=== PATIENT | male | born 1960 | race Caucasian/White ===

== ENCOUNTER 2024-07-01 12:36 | Inpatient (IN) | payer BC, SELFPAY ==
[2024-07-01] VITALS (93 sets, daily range): BP systolic 93–149; BP diastolic 72–108; PULSE 75–123; RESP 14–29; TEMP 36.8; O2SAT 89–99; BMI 27.1
[2024-07-01] MEDS: sodium chloride 0.9% 1,000 ML 999 ML IV (12:56)
--- NOTE | 2024-07-01 12:57 | ED.C_ITS ---
HPI - Psych General: Chief Complaint: Psychiatric Symptoms Stated Complaint: SI, hallucinations, jaundice, ETOH Time Seen by Provider: 07/01/24 12:38 Source: patient Mode of arrival: EMS Limitations: altered mental status History of Present Illness: 64-year-old male presents to the ER via EMS for concerns drinking 3 bottles of hand prototype engineer at home. Patient states he did not drink hand prototype engineer and he is coming in due to increased anxiety and wanting to get back on his antidepressants. Patient denies suicidal ideation. Patient states his last alcohol intake was 3 days ago of 1 L of vodka. Patient states his last meal was 2 to 3 days ago. Patient was unable to say what state he is in and what day of the week it is. Patient denies chest pain, abdominal pain, shortness of breath, headache, vision changes. MD complaint: feels depressed Onset (ago): day(s) Relieving factors: none Exacerbating factors: none Context: recent alcohol abuse and not taking psychiatric medications Associated psychiatric symptoms: depression Associated symptoms: Reports no associated symptoms and depression Related Data Allergies Allergy/AdvReac Type Severity Reaction Status Date / Time No Known Allergies Allergy Verified 07/01/24 12:46 Review of Systems Const: Denies: fever(s), chills or body aches Eyes: Denies: change in vision Card: Denies: chest pain or palpitations Resp: Denies: dyspnea GI: Denies: abdominal pain Neuro: Denies: headache(s) Psych: Reports: anxiety, depression and change in appetite Physical Exam Const: EXAM LIMITATIONS: altered mental status GENERAL APPEARANCE: cooperative ORIENTATION/CONSCIOUSNESS: Yes awake, Yes oriented to person, Yes oriented to place and Yes confused; not oriented to time Resp: COMMON NORMALS: clear to auscultation bilaterally EFFORT & INSPECTION: Yes able to speak in complete sentences AUSCULTATION: clear to auscultation bilaterally Cardio: COMMON NORMALS: regular rate and regular rhythm RATE: regular rate RHYTHM: regular rhythm Neuro: SENSORIUM/ORIENTATION: Yes oriented to person, Yes oriented to place and No oriented to time Psych: COMMON NORMALS: cooperative, denies hallucinations and denies suicidal ideation APPEARANCE: Yes disheveled SPEECH: Yes slow and Yes soft Course Vital Signs: Vital signs: Vital Signs Temperature 98.3 F 07/01/24 12:45 Pulse Rate 108 H 07/01/24 12:45 Respiratory Rate 17 07/01/24 12:45 Blood Pressure 116/81 07/01/24 12:45 Pulse Oximetry 93 07/01/24 12:45 Oxygen Delivery Me thod Room Air 07/01/24 12:45 Discharge Plan Discharge Condition: Stable Print Language: Croatian Coding Level of Care Code ED Business Management Intern for Atif Mendes
--- NOTE | 2024-07-01 13:03 | PC.NURSE ---
POISON CONTROL CONTACTED REGARDING PATIENT INGESTION OF HAND PROFESSOR OF LEGAL STUDIES. POISON CONTROL ADVISED SYMPTOMATIC SUPPORTIVE CARE, OXYGEN SUPPORT AND MONITORING, URINE DRUG SCREEN, CBC, BMP, AND EKG. MONITOR FOR HYPOGLYCEMIA, HYPERTENSIO, AND BRADYCARDIA. PEAK TIME IS 30-60 MINUTES. ALSO MONITOR FOR METABOLIC ACIDOSIS. PROVIDER NOTIFIED.
--- NOTE | 2024-07-01 13:08 | ECG_ITS ---
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 Measurements Intervals [place] Rate: 101 P: 50 MT: 156 QRS: -55 QRSD: 109 T: 26 QT: 340 QTc: 443 Interpretive Statements SINUS TACHYCARDIA LOW QRS VOLTAGE IN PRECORDIAL LEADS [QRS DEFLECTION < 1.0 mV IN CHEST LEADS] PATTERN CONSISTENT WITH PULMONARY DISEASE INCOMPLETE RIGHT BUNDLE BRANCH BLOCK [90+ ms QRS DURATION, TERMINAL R IN V1/V2, 40+ ms S IN I/aVL/V4/V5/V6] LEFT ANTERIOR FASCICULAR BLOCK [QRS AXIS <= -45, QR IN I, RS IN II] ST DEVIATION AND MODERATE T-WAVE ABNORMALITY, CONSIDER ANTERIOR ISCHEMIA [-0.1+ mV T-WAVE IN V3/V4] No previous ECG available for comparison Electronically Signed On 07-06-2024 19:49:47 BUZZLE BUFFER by Eddie Herndon M.D. [email or web address] [id number]
--- NOTE | 2024-07-01 13:09 | PC.PHAR ---
Pt has not filled any medications since December 2023 at [facility].
--- NOTE | 2024-07-01 13:13 | CT_ITS ---
WS: [id number] CT ABDOMEN AND PELVIS WITH CONTRAST HISTORY: AMS, abdominal ecchymosis, jaundice TECHNIQUE: Imaging performed of the abdomen and pelvis with IV contrast. Single phase imaging of the abdomen. Coronal and sagittal reformats are submitted. All CT scans at [facility] use at least one of these dose optimization techniques: automated exposure control; mA and/or kV adjustment per patient size (includes targeted exams where dose is matched to clinical indication); or iterative reconstruction. IV CONTRAST: Omnipaque 350; 100 mL IV. Oral contrast: No DLP: 987.43 mGy.cm COMPARISON: None available. Lower thorax: Lung bases are clear. Heart is normal size. No hiatal hernia. Liver/biliary system: Markedly enlarged liver. Liver measures 22.2 cm in length with severe decreased attenuation throughout the entire liver. No intrahepatic duct dilatation. No mass. Portal vein is normally enhancing. Small caliber common bile duct. Gallbladder: Normal. No gallstones or wall thickening. No pericholecystic fluid. Pancreas: Normal size pancreas and pancreatic duct. No adjacent inflammation. Spleen: Normal size spleen. No mass or infarct. Scattered granulomata. Adrenal glands: Normal RIGHT adrenal gland. 1.6 cm LEFT adrenal nodule. Right kidney: Normal. Left kidney: Normal size kidney. Lobulated low-attenuation mass 2.4 x 2.1 cm from the anterior lower pole. Hounsfield units suggest this is a cyst. No solid mass or obstruction. Aorta: Mild atherosclerosis with no aneurysm. Lymphadenopathy: None. Free fluid: Tiny amount of free fluid in the pelvis. GI tract: No obstruction. Normal appendix. Abdominal wall: Unremarkable abdominal wall. No hernia. Pelvis: Nondistended urinary bladder. No adenopathy. Bones: Schmorl node defect at T11 and T12. CT/CT abdomen pelvis w con* [id number] IMPRESSION: 1. Markedly enlarged liver with severe decreased attenuation due to hepatic st eatosis. 2. Normal common bile duct. No intrahepatic or extrahepatic duct dilatation. 3. No evidence for acute pancreatitis. 4. LEFT renal cyst. 5. LEFT adrenal nodule 1.6 cm. Differential includes metastatic disease and be nign adenoma. Dedicated adrenal mass CT protocol or MRI adrenal protocol can be obtained.
--- NOTE | 2024-07-01 13:13 | CT_ITS ---
WS: [id number] CT HEAD NONCONTRAST HISTORY: AMS TECHNIQUE: Contiguous axial imaging performed through the brain. Bone and soft tissue windows. Sagittal and coronal reformats reviewed. All CT scans at [facility] use at least one of these dose optimization techniques: automated exposure control; mA and/or kV adjustment per patient size (includes targeted exams where dose is matched to clinical indication); or iterative reconstruction. DLP: 1107.68 mGy.cm COMPARISON: None available. No acute intracranial hemorrhage, midline shift or mass effect. Mild cerebral atrophy and small vessel disease. No prior large territory infarct. Ventricles: Normal size with no hydrocephalus. No inferior displacement of the cerebellar tonsils. Paranasal sinuses: As visualized are clear. Mastoid air cells: Well pneumatized. Calvarium and scalp: Skull is intact with no soft tissue edema or swelling. CT/CT head wo con* [id number] IMPRESSION: 1. No acute intracranial hemorrhage or edema. 2. Mild cerebral atrophy and small vessel disease.
--- NOTE | 2024-07-01 13:14 | W.ED.AMS ---
HPI - Altered Mental Status General: Chief Complaint: Psychiatric Symptoms Stated Complaint: SI, hallucinations, jaundice, ETOH Time Seen by Provider: 07/01/24 12:38 Source: patient and EMS Mode of arrival: ambulatory Limitations: altered mental status History of Present Illness: Patient is a 64-year-old male who presents to ED today via EMS initially for complaints of suicidal ideations, hallucinations, jaundice, alcohol abuse. Report from patient is unobtainable as he is significantly altered upon arrival. He has significant jaundice and scleral icterus. There is a longstanding history of heavy alcohol abuse. Patient does tell me he is and used to reside with his but she kicked him out and now he resides with his mother. 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 Patient believes he is in [place]. He is a poor historian overall due to his altered mental status. MD complaint: altered mental status and confusion Onset (ago): unknown Context: alcohol abuse Related Data Home Medications ?Medication ?Instructions ?Recorded ?Confirmed No Known Home Medications 07/01/24 07/01/24 Allergies Allergy/AdvReac Type Severity Reaction Status Date / Time No Known Allergies Allergy Verified 07/01/24 12:46 Review of Systems General: Reports: ROS unobtainable due to medical condition and ROS unobtainable due to mental status Physical Exam Const: COMMON NORMALS: alert EXAM LIMITATIONS: altered mental status GENERAL APPEARANCE: cooperative ORIENTATION/CONSCIOUSNESS: Yes awake and Yes oriented to person HENMT: COMMON NORMALS: normocephalic and atraumatic HEAD & SCALP: normal to inspection, normocephalic and atraumatic FACE & SINUS: normal facial exam Eye: SCLERA: scleral abnormal Laterality of scleral abnormality: positive bilateral scleral icterus Neck/C-Spine: COMMON NORMALS: full ROM and no lymphadenopathy GENERAL: Yes normal visual inspection Resp: COMMON NORMALS: normal respiratory effort and clear to auscultation bilaterally AUSCULTATION: clear to auscultation bilaterally Cardio: COMMON NORMALS: regular rhythm RATE: tachycardic RHYTHM: regular rhythm GI: COMMON NORMALS: Soft to palpation and no masses INSPECTION: Yes other (ecchymosis on abdomen-states he fell recently) AUSCULTATION: Yes normoactive bowel sounds PALPATION: Yes Soft to palpation and Yes Hepatomegaly present : COMMON NORMALS: Yes no CVA tenderness BLADDER/KIDNEY EXAM: Yes no CVA tenderness Back/Pelvis: COMMON NORMALS: no CVA tenderness Extremity: COMMON NORMALS: full ROM, capillary refill normal, no clubbing, cyanosis or edema, no calf tenderness and no pedal edema GENERAL: Yes normal exam except as noted Neuro: MELINA COMA SCALE: document GCS findings Melina coma scale eye opening: Spontaneous Lindley coma scale verbal response: Confused Lindley coma scale motor response: Obey commands Melina coma scale total score: 14 COMMON NORMALS: moves all extremities, no focal motor deficits and no sensory deficits noted SENSORIUM/ORIENTATION: Yes alert and Yes oriented to person Skin: NARRATIVE SKIN EXAM: jaundice Course Vital Signs: Vital signs: Vital Signs Temperature 98.3 F 07/01/24 12:45 Pulse Rate 108 H 07/01/24 12:45 Respiratory Rate 17 07/01/24 12:45 Blood Pressure 116/81 07/01/24 12:45 Pulse Oximetry 93 07/01/24 12:45 Oxygen Delivery Me thod Room Air 07/01/24 12:45 MDM - Altered Mental Status Medical Decision Making Patient will be admitted to hospital service for treatment of hepatic encephalopathy. Dr. Taylor and Dr. Paiz aware of patient and agree with decision to admit. Medical Records I reviewed the patient's medical records. Lab Data I reviewed the patient's lab results. 07/01/24 13:36 07/01/24 13:36 Radiology Impressions Abdomen/Pelvis CT 07/01/24 13:13 IMPRESSION: 1. Markedly enlarged liver with severe decreased attenuation due to hepatic steatosis. 2. Normal common bile duct. No intrahepatic or extrahepatic duct dilatation. 3. No evidence for acute pancreatitis. 4. LEFT renal cyst. 5. LEFT adrenal nodule 1.6 cm. Differential includes metastatic disease and benign adenoma. Dedicated adrenal mass CT protocol or MRI adrenal protocol can be obtained. Head CT 07/01/24 13:13 IMPRESSION: 1. No acute intracranial hemorrhage or edema. 2. Mild cerebral atrophy and small vessel disease. Laboratory Results WBC 10.63 10^3/uL (3.29-11.43) 07/01/24 13:36 RBC 3.84 10^6/uL (3.85-5.65) L 07/01/24 13:36 Hgb 13.00 g/dL (11.27-16.99) 07/01/24 13:36 Hct 39.7 % (37-53) 07/01/24 13:36 MCV 103.4 fl (82-101) H 07/01/24 13:36 MCH 33.9 pg (27-33) H 07/01/24 13:36 MCHC 32.7 g/dL (30-55) 07/01/24 13:36 RDW 16.1 % (12.1-15.1) H 07/01/24 13:36 Plt Count 207 10^3/cmm (157-399) 07/01/24 13:36 MPV 11.4 fL (7.4-10.4) H 07/01/24 13:36 Neut % (Auto) 73.0 % 07/01/24 13:36 Lymph % (Auto) 14.2 % 07/01/24 13:36 [place] % (Auto) 9.1 % 07/01/24 13:36 Eos % (Auto) 0.6 % 07/01/24 13:36 Baso % (Auto) 0.7 % 07/01/24 13:36 Neut # (Auto) 7.76 10^3/uL (1.8-7.7) H 07/01/24 13:36 Lymph # (Auto) 1.5 10^3/uL (0.8-4.8) 07/01/24 13:36 [place] # (Auto) 1.0 10^3/uL (0.2-0.9) H 07/01/24 13:36 Eos # (Auto) 0.1 10^3/uL (0.0-0.8) 07/01/24 13:36 Baso # (Auto) 0.1 10^3/uL (0.0-0.1) 07/01/24 13:36 Nucleated RBC % (auto) 1.3 % 07/01/24 13:36 Nucleated RBCs # 0.1 /100WBC 07/01/24 13:36 PT 15.50 SECONDS (12.1-14.9) H 07/01/24 13:36 INR 1.15 (0.8-1.2) 07/01/24 13:36 APTT 33.4 SECONDS (23.9-36.7) 07/01/24 13:36 Sodium 133 mmol/L (136-145) L 07/01/24 13:36 Potassium 3.0 mmol/L (3.5-5.1) L 07/01/24 13:36 Chloride 92 mmol/L (98-107) L 07/01/24 13:36 Carbon Dioxide 26 mmol/L (22-29) 07/01/24 13:36 Anion Gap 18.0 (5-19) 07/01/24 13:36 BUN 14 mg/dL (8-23) 07/01/24 13:36 Creatinine 0.7 mg/dL (0.7-1.2) 07/01/24 13:36 GFR Calculation 114.3 mL/min (90-130) 07/01/24 13:36 Glucose 110 mg/dL (65-115) 07/01/24 13:36 Calculated Osmolality 277 mOsm/kg (285-295) L 07/01/24 13:36 Lactic Acid 2.6 mmol/L (0.5-2.2) H 07/01/24 13:36 Calcium 8.7 mg/dL (8.5-10.5) 07/01/24 13:36 Total Bilirubin 10.7 mg/dL (0.15-1.2) H* 07/01/24 13:36 AST 341 U/L (0-40) H 07/01/24 13:36 ALT 119 U/L (0-41) H 07/01/24 13:36 Alkaline Phosphatase 262 U/L (40-130) H 07/01/24 13:36 Ammonia 51 umol/L (16-60) 07/01/24 13:36 Total Protein 6.0 g/dL (6.6-8.7) L 07/01/24 13:36 Albumin 3.0 g/dL (3.5-5.2) L 07/01/24 13:36 Globulin 3.0 g/dL (1.3-4.6) 07/01/24 13:36 Lipase 52 U/L (13-60) 07/01/24 13:36 Urine Color Other (Yellow) A 07/01/24 13:30 Urine Appearance Cloudy (CLEAR) A 07/01/24 13:30 Urine pH 5.5 (5-7) 07/01/24 13:30 Ur Specific [place] 1.025 (1.005-1.030) 07/01/24 13:30 Urine Protein 1+ (Negative) A 07/01/24 13:30 Urine Glucose (UA) Negative (Normal) 07/01/24 13:30 Urine Ketones Trace (Negative) 07/01/24 13:30 Urine Blood Negative (Negative) 07/01/24 13:30 Urine Nitrate Negative (Negative) 07/01/24 13:30 Urine Bilirubin 3+ (Negative) H 07/01/24 13:30 Urine Urobilinogen 1.0 mg/dL (Negative) 07/01/24 13:30 Ur Leukocyte Esterase 1+ (Negative) A 07/01/24 13:30 Urine RBC None /hpf (0-2) 07/01/24 13:30 Urine WBC 5-10 /hpf (0-5) H 07/01/24 13:30 Ur Squamous Epith Cells 10-15 /hpf (0-5) H 07/01/24 13:30 Amorphous Sediment Not Reportable 07/01/24 13:30 Urine Bacteria Trace /hpf (NONE) 07/01/24 13:30 Urine Mucus 1+ /hpf 07/01/24 13:30 Salicylates < 0.3 mg/dL (3-10) L 07/01/24 13:36 Acetaminophen < 5.0 ug/mL (10-30) L 07/01/24 13:36 Ethyl Alcohol < 10 mg/dL (0-10) 07/01/24 13:36 Hepatitis A IgM Ab Non-reactive (Nonreactive) 07/01/24 13:36 Hep Bs Antigen Non-reactive (Nonreactive) 07/01/24 13:36 Hep B Core IgM Ab Non-reactive (Nonreactive) 07/01/24 13:36 Hepatitis C Antibody Non-reactive (Nonreactive) 07/01/24 13:36 All radiology interpretation(s) finalized by discharge Discharge Plan Discharge Patient Disposition: Admitted As Inpatient Clinical Impression: Encephalopathy, hepatic Condition: Stable Prescriptions: No Action No Known Home Medications Patient Instructions: Opioid Safety, Pain Management Print Language: Burundian Coding Level of Care Code ED 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
[2024-07-01 13:44] LABS: Basophils # 0.1 10^3/uL (0.0-0.1); Basophils % 0.7 %; Eosinophils # 0.1 10^3/uL (0.0-0.8); Eosinophils % 0.6 %; Hematocrit 39.7 % (37-53); Lymphocytes # 1.5 10^3/uL (0.8-4.8); Lymphocytes % 14.2 %; Mean Corpuscular HGB Conc 32.7 g/dL (30-55); Mean Corpuscular Hemoglobin 33.9 pg (27-33); Mean Corpuscular Volume 103.4 fl (82-101); Mean Platelet Volume 11.4 fL (7.4-10.4); Monocytes % 9.1 %; Neutrophils # 7.76 10^3/uL (1.8-7.7); Nucleated Red Blood Cells # 0.1 /100WBC; Nucleated Red Blood Cells % 1.3 %; Platelet Count 207 10^3/cmm (157-399); Red Blood Count 3.84 10^6/uL (3.85-5.65); Red Cell Distribution Width 16.1 % (12.1-15.1); White Blood Count 10.63 10^3/uL (3.29-11.43)
[2024-07-01 14:01] LABS: INR 1.15 (0.8-1.2)
[2024-07-01 14:02] LABS: Alanine Aminotransferase 119 U/L (0-41); Alkaline Phosphatase 262 U/L (40-130); Aspartate Amino Transferase 341 U/L (0-40); Blood Urea Nitrogen 14 mg/dL (8-23); Calcium 8.7 mg/dL (8.5-10.5); Carbon Dioxide 26 mmol/L (22-29); Chloride 92 mmol/L (98-107); Creatinine Clr Calc Pharmacy 128.2159; Glomerular Filtration Rate 114.3 mL/min (90-130); Glucose 110 mg/dL (65-115); Lactic Sepsis W/Reflex 2.6 mmol/L (0.5-2.2); Lipase 52 U/L (13-60); Osmolality Calculated 277 mOsm/kg (285-295); Partial Thromboplastin Time 33.4 SECONDS (23.9-36.7); Sodium 133 mmol/L (136-145)
[2024-07-01 14:04] LABS: Ammonia 51 umol/L (16-60)
[2024-07-01 14:05] LABS: Acetaminophen < 5.0 ug/mL (10-30); Alcohol Level < 10 mg/dL (0-10); Salicylate < 0.3 mg/dL (3-10); Total Bilirubin 10.7 mg/dL (0.15-1.2)
[2024-07-01 14:39] LABS: Bilirubin Urine 3+ (Negative); Blood Urine Negative (Negative); Glucose Urine UA Negative (Normal); Ketones Urine Trace (Negative); Leukocyte Esterase Urine 1+ (Negative); Protein Urine 1+ (Negative); Specific Gravity, Urine 1.025 (1.005-1.030); Urine Appearance Cloudy (CLEAR); pH Urine 5.5 (5-7)
--- NOTE | 2024-07-01 14:45 | XRR_ITS ---
PROCEDURE INFORMATION: Exam: XR Chest Exam date and time: 07/01/2024 3:08 PM Age: 64 years old Clinical indication: Other: AMS TECHNIQUE: Imaging protocol: Radiologic exam of the chest. Views: 1 view. COMPARISON: CT abdomen pelvis w con* [id number] 07/01/2024 2:33 PM FINDINGS: Lungs: Lungs are clear. Pleural spaces: There is no pleural effusion or pneumothorax. Heart/Mediastinum: Cardiomediastinal contours are unremarkable. Bones/joints: There is mild degenerative disease at both shoulders. No acute fracture. XR/XR chest 1V portable [id number] IMPRESSION: No acute findings.
[2024-07-01 14:53] LABS: Nitrate Urine Negative (Negative); Urine Color Other (Yellow)
[2024-07-01 14:54] LABS: Add Urine Microscopic? YES; Bacteria Urine TRACE /hpf; Mucus Urine 1+ /hpf; UA Manual Slide Review YES; UA Slide Review UA Slide Review Perf
[2024-07-01 15:17] LABS: Hepatitis A Antibody IgM Non-Reactive (Nonreactive); Hepatitis B Core IgM Non-Reactive (Nonreactive); Hepatitis B Surface Antigen Non-Reactive (Nonreactive); Hepatitis C Virus Antibody Non-Reactive (Nonreactive)
[2024-07-01 15:29] LABS: Reflex Lactate Order REFLEX LACTIC ORDERD
[2024-07-01] MEDS: lactulose oral liq 20 gm/30 mL UDC 30 GM PO (16:01)
[2024-07-01 16:13] LABS: Amphetamines Screen Urine Negative (Negative); Barbiturates Screen Urine Negative (Negative); Benzodiazepines Screen Urine Negative (Negative); Cocaine Screen Urine Negative (Negative); Opiate Screen Urine Negative (Negative); PCP Screen Urine Negative (Negative); THC Screen Urine Positive (Negative)
--- NOTE | 2024-07-01 17:57 | PM.HP ---
Providers/Chief Complaint Admitting Physician: Shefali Hood MD Chief Complaint: SI, hallucinations, jaundice, ETOH History of Present Illness Héctor Jacobs is a 64 year old male who is brought to [facility] ED today by his brother for altered mental status. Family is not currentlyy at bedside to provide history. Patient himself is currently able to state his name, age, , fact that he is in a hospital. He states he is not too familiar with hospitals in the area and did not know he is in [place]. He correctly tells me that he is from [place] (his listed address in the chart) and that he is currently residing with his brother. When asked when he came ot live here, he states its complicated but doesnt offer much information. He states he was brought here by his brother due to detoxing from alcohol. HE states his last drink was 2 days ago and he had started to exerience jitters and shakes therefore he knew he was detoxing and needed to come to the hopsital. Denies past h/o withdrawal seziures. When asked regarding his deramged liver enzymes, he states he has known for many months that he has liver failure but unable to provide much history. Per ER report, patient was confused and disoriented when first brought to the ER. He is currently able to answer all orientation questions but does not offer historical details. Review of Systems General: Reports: ROS unobtainable due to medical condition Medications/Allergies Home Medications ?Medication ?Instructions ?Recorded ?Confirmed ?Last Taken ?Type No Known Home Medications 07/01/24 07/01/24 Unknown History Allergies Allergy/AdvReac Type Severity Reaction Status Date / Time No Known Allergies Allergy Verified 07/01/24 12:46 Vitals/I&O/Wt Last Vital Signs Temp 98.3 F 07/01/24 12:45 Pulse 91 07/01/24 16:17 Resp 17 07/01/24 12:45 BP 110/89 07/01/24 16:17 Pulse Ox 93 07/01/24 16:17 O2 Del Method Room Air 07/01/24 16:17 07/01/24 07/01/24 07/01/24 06:59 14:59 22:59 Intake Total 1000 / 1000 Balance 1000 / 1000 Weight last 48 hrs Weight 90.718 kg Physical Exam Narrative: General: No acute distress, AO x3 HEENT: PERRLA, pupils bilaterally equal and reactive, pallors not present, icterus + Chest: Normal vesicular breath sounds, no added sounds, equal good air entry bilaterally CVS: S1-S2 regular, no murmurs, no tachycardia, no gallops, no rubs Abdomen: Soft, nontender, no organomegaly, bowel sounds present Neuro: No focal deficits, no facial deformity, AO x3, power 5/5 in all limbs Data 07/01/24 13:36 07/01/24 13:36 Micro: Radiology Impressions Abdomen/Pelvis CT 07/01/24 13:13 IMPRESSION: 1. Markedly enlarged liver with severe decreased attenuation due to hepatic steatosis. 2. Normal common bile duct. No intrahepatic or extrahepatic duct dilatation. 3. No evidence for acute pancreatitis. 4. LEFT renal cyst. 5. LEFT adrenal nodule 1.6 cm. Differential includes metastatic disease and benign adenoma. Dedicated adrenal mass CT protocol or MRI adrenal protocol can be obtained. Head CT 07/01/24 13:13 IMPRESSION: 1. No acute intracranial hemorrhage or edema. 2. Mild cerebral atrophy and small vessel disease. Chest X-Ray 07/01/24 14:45 IMPRESSION: No acute findings. Laboratory Results WBC 10.63 10^3/uL (3.29-11.43) 07/01/24 13:36 RBC 3.84 10^6/uL (3.85-5.65) L 07/01/24 13:36 Hgb 13.00 g/dL (11.27-16.99) 07/01/24 13:36 Hct 39.7 % (37-53) 07/01/24 13:36 MCV 103.4 fl (82-101) H 07/01/24 13:36 MCH 33.9 pg (27-33) H 07/01/24 13:36 MCHC 32.7 g/dL (30-55) 07/01/24 13:36 RDW 16.1 % (12.1-15.1) H 07/01/24 13:36 Plt Count 207 10^3/cmm (157-399) 07/01/24 13:36 MPV 11.4 fL (7.4-10.4) H 07/01/24 13:36 Neut % (Auto) 73.0 % 07/01/24 13:36 Lymph % (Auto) 14.2 % 07/01/24 13:36 [place] % (Auto) 9.1 % 07/01/24 13:36 Eos % (Auto) 0.6 % 07/01/24 13:36 Baso % (Auto) 0.7 % 07/01/24 13:36 Neut # (Auto) 7.76 10^3/uL (1.8-7.7) H 07/01/24 13:36 Lymph # (Auto) 1.5 10^3/uL (0.8-4.8) 07/01/24 13:36 [place] # (Auto) 1.0 10^3/uL (0.2-0.9) H 07/01/24 13:36 Eos # (Auto) 0.1 10^3/uL (0.0-0.8) 07/01/24 13:36 Baso # (Auto) 0.1 10^3/uL (0.0-0.1) 07/01/24 13:36 Nucleated RBC % (auto) 1.3 % 07/01/24 13:36 Nucleated RBCs # 0.1 /100WBC 07/01/24 13:36 PT 15.50 SECONDS (12.1-14.9) H 07/01/24 13:36 INR 1.15 (0.8-1.2) 07/01/24 13:36 APTT 33.4 SECONDS (23.9-36.7) 07/01/24 13:36 Sodium 133 mmol/L (136-145) L 07/01/24 13:36 Potassium 3.0 mmol/L (3.5-5.1) L 07/01/24 13:36 Chloride 92 mmol/L (98-107) L 07/01/24 13:36 Carbon Dioxide 26 mmol/L (22-29) 07/01/24 13:36 Anion Gap 18.0 (5-19) 07/01/24 13:36 BUN 14 mg/dL (8-23) 07/01/24 13:36 Creatinine 0.7 mg/dL (0.7-1.2) 07/01/24 13:36 GFR Calculation 114.3 mL/min (90-130) 07/01/24 13:36 Glucose 110 mg/dL (65-115) 07/01/24 13:36 Calculated Osmolality 277 mOsm/kg (285-295) L 07/01/24 13:36 Lactic Acid 2.6 mmol/L (0.5-2.2) H 07/01/24 13:36 Lactic Acid (Sepsis) 2.3 mmol/L (0.5-2.2) H 07/01/24 17:58 Calcium 8.7 mg/dL (8.5-10.5) 07/01/24 13:36 Total Bilirubin 10.7 mg/dL (0.15-1.2) H* 07/01/24 13:36 AST 341 U/L (0-40) H 07/01/24 13:36 ALT 119 U/L (0-41) H 07/01/24 13:36 Alkaline Phosphatase 262 U/L (40-130) H 07/01/24 13:36 Ammonia 51 umol/L (16-60) 07/01/24 13:36 Total Protein 6.0 g/dL (6.6-8.7) L 07/01/24 13:36 Albumin 3.0 g/dL (3.5-5.2) L 07/01/24 13:36 Globulin 3.0 g/dL (1.3-4.6) 07/01/24 13:36 Lipase 52 U/L (13-60) 07/01/24 13:36 Urine Color Other (Yellow) A 07/01/24 13:30 Urine Appearance Cloudy (CLEAR) A 07/01/24 13:30 Urine pH 5.5 (5-7) 07/01/24 13:30 Ur Specific [place] 1.025 (1.005-1.030) 07/01/24 13:30 Urine Protein 1+ (Negative) A 07/01/24 13:30 Urine Glucose (UA) Negative (Normal) 07/01/24 13:30 Urine Ketones Trace (Negative) 07/01/24 13:30 Urine Blood Negative (Negative) 07/01/24 13:30 Urine Nitrate Negative (Negative) 07/01/24 13:30 Urine Bilirubin 3+ (Negative) H 07/01/24 13:30 Urine Urobilinogen 1.0 mg/dL (Negative) 07/01/24 13:30 Ur Leukocyte Esterase 1+ (Negative) A 07/01/24 13:30 Urine RBC None /hpf (0-2) 07/01/24 13:30 Urine WBC 5-10 /hpf (0-5) H 07/01/24 13:30 Ur Squamous Epith Cells 10-15 /hpf (0-5) H 07/01/24 13:30 Amorphous Sediment Not Reportable 07/01/24 13:30 Urine Bacteria Trace /hpf (NONE) 07/01/24 13:30 Urine Mucus 1+ /hpf 07/01/24 13:30 Salicylates < 0.3 mg/dL (3-10) L 07/01/24 13:36 Urine Opiates Screen Negative ng/mL (Negative) 07/01/24 13:30 Acetaminophen < 5.0 ug/mL (10-30) L 07/01/24 13:36 Ur Barbiturates Screen Negative ng/mL (Negative) 07/01/24 13:30 Ur Phencyclidine Scrn Negative ng/mL (Negative) 07/01/24 13:30 Ur Amphetamines Screen Negative ng/mL (Negative) 07/01/24 13:30 U Benzodiazepines Scrn Negative ng/mL (Negative) 07/01/24 13:30 Urine Cocaine Screen Negative ng/mL (Negative) 07/01/24 13:30 U Marijuana (THC) Screen Positive ng/mL (Negative) H 07/01/24 13:30 Ethyl Alcohol < 10 mg/dL (0-10) 07/01/24 13:36 Hepatitis A IgM Ab Non-reactive (Nonreactive) 07/01/24 13:36 Hep Bs Antigen Non-reactive (Nonreactive) 07/01/24 13:36 Hep B Core IgM Ab Non-reactive (Nonreactive) 07/01/24 13:36 Hepatitis C Antibody Non-reactive (Nonreactive) 07/01/24 13:36 A&P Assessment and plan (1) Acute alcoholic hepatitis: acute alcoholic hepatitis as evidenced by elevated T. Bili, deranged LFTs imaging with diffuse hepatomegaly, no CBD dilattaion or biliary obstruction jeremy alcoholic hepatitis score at 7, no benefit to corticosteroids for now Aceaminophen and salicylate level not elevated UDS pending check acute hepatitis serology genetle iv hydration with NS @ 50 cc/ hr for hyponatremia Thiamine 100mg im now followed by 100mg po daily repelete potassium with KCL 40meq via iv prn zofran for nausea no signs of decompensated cirrhosis at this time (2) Alcohol withdrawal: CIWA monitoring Prn ativan based on CIwa scoring holding librium due to gross transminitis Plan Reported AMS at home, however patient currently AAO x 3 at time of this assessment. CT head WNL. Ammonia WNL at 51. PDMP PDMP Reviewed: Not Reviewed Attestations Medical Necessity Statement*: > 2midnight stay is anticipated Coding Level of Care Code Acute Code for Chg Fwd Moderate MDM includes number and complexity of problems actively addressed during encounter, amount and/or complexity of data reviewed/ordered and described risk of complication, morbidity or mortality of management as documented Diagnoses Acute alcoholic hepatitis K70.10 Alcohol withdrawal F15.930
[2024-07-01] MEDS: lidocaine 1% 5 ML in potassium chloride premix 100 ML 26.25 ML IV (18:49)
[2024-07-01 18:54] LABS: Lactic Acid level (Lactate) 2.3 mmol/L (0.5-2.2)
[2024-07-01] MEDS: thiamine 100 mg/mL 2mL SDV IM (18:55)
[2024-07-01] MEDS: sodium chloride 0.9% 1,000 ML 50 ML IV (19:01)
--- NOTE | 2024-07-01 19:08 | PC.NURSE ---
this nurse assumed pt care at 1900 from Alejandrina VALENZUELA.
[2024-07-02] VITALS (103 sets, daily range): BP systolic 66–142; BP diastolic 42–83; PULSE 59–115; RESP 10–22; TEMP 36.5–36.9; O2SAT 87–99; BMI 29.9
[2024-07-02 03:29] LABS: Basophils # 0.1 10^3/uL (0.0-0.1); Basophils % 0.6 %; Eosinophils # 0.2 10^3/uL (0.0-0.8); Eosinophils % 1.8 %; Hematocrit 34.2 % (37-53); Lymphocytes # 1.8 10^3/uL (0.8-4.8); Lymphocytes % 20.5 %; Mean Corpuscular Hemoglobin 33.8 pg (27-33); Mean Corpuscular Volume 102.4 fl (82-101); Mean Platelet Volume 11.8 fL (7.4-10.4); Monocytes # 0.8 10^3/uL (0.2-0.9); Monocytes % 9.1 %; Neutrophils # 5.75 10^3/uL (1.8-7.7); Neutrophils % 65.3 %; Nucleated Red Blood Cells # 0.1 /100WBC; Nucleated Red Blood Cells % 0.8 %; Platelet Count 173 10^3/cmm (157-399); Red Blood Count 3.34 10^6/uL (3.85-5.65); Red Cell Distribution Width 16.2 % (12.1-15.1)
[2024-07-02 03:38] LABS: INR 1.18 (0.8-1.2)
[2024-07-02 03:53] LABS: Alanine Aminotransferase 97 U/L (0-41); Albumin Level 2.7 g/dL (3.5-5.2); Alkaline Phosphatase 231 U/L (40-130); Aspartate Amino Transferase 278 U/L (0-40); Blood Urea Nitrogen 12 mg/dL (8-23); Calcium 8.4 mg/dL (8.5-10.5); Carbon Dioxide 28 mmol/L (22-29); Chloride 95 mmol/L (98-107); Creatinine Clr Calc Pharmacy 179.5023; Globulin 2.4 g/dL (1.3-4.6); Glomerular Filtration Rate 168.5 mL/min (90-130); Glucose 95 mg/dL (65-115); Magnesium 2.1 mg/dL (1.7-2.3); Osmolality Calculated 282 mOsm/kg (285-295); Sodium 136 mmol/L (136-145); Total Protein 5.1 g/dL (6.6-8.7)
[2024-07-02 04:04] LABS: Anion Gap 16.4 (5-19); Potassium 3.4 mmol/L (3.5-5.1)
[2024-07-02 04:05] LABS: Total Bilirubin 9.4 mg/dL (0.15-1.2)
[2024-07-02 04:10] LABS: Hepatitis A Antibody IgM Non-Reactive (Nonreactive); Hepatitis B Core AB, Total Non-Reactive (Nonreactive); Hepatitis B Surface AB 53.5 (11.5-1000); Hepatitis B Surface Antigen Non-Reactive (Nonreactive); Hepatitis C Virus Antibody Non-Reactive (Nonreactive)
[2024-07-02] MEDS: folic acid 1 mg Tablet PO (09:01)
[2024-07-02] MEDS: thiamine 100 mg Tablet PO (09:01)
[2024-07-02] MEDS: multivitamin therapeutic Tablet 1 TAB PO (09:01)
[2024-07-02] MEDS: LORazepam 2 mg/mL INJ 1 mL IVP (11:20)
--- NOTE | 2024-07-02 14:28 | PC.NURSE ---
This nurse assumed care of pt at 1425.
--- NOTE | 2024-07-02 16:02 | P.PN_ITS ---
Subjective 2 Subjective: No new complaints today. States he is feeling a little bit better today for CIWA score at 12 this morning. He received Ativan 2 mg at 11 AM today. Medications: Reviewed: Yes Vitals/I&O/Wt Last Vital Signs Temp 98.0 F 07/02/24 14:00 Pulse 66 07/02/24 14:00 Resp 18 07/02/24 14:00 BP 100/67 07/02/24 14:00 Pulse Ox 93 07/02/24 14:00 O2 Del Method Room Air 07/02/24 14:00 07/02/24 07/02/24 07/02/24 06:59 14:59 22:59 Intake Total 320 / 320 Balance 320 / 320 Weight last 48 hrs Weight 103.192 kg Weight 90.718 kg Physical Exam 2 Narrative: General: No acute distress, AO x3 HEENT: PERRLA, pupils bilaterally equal and reactive, pallors not present, icterus + Chest: Normal vesicular breath sounds, no added sounds, equal good air entry bilaterally CVS: S1-S2 regular, no murmurs, no tachycardia, no gallops, no rubs Abdomen: Soft, nontender, no organomegaly, bowel sounds present Neuro: No focal deficits, no facial deformity, AO x3, power 5/5 in all limbs Data 07/02/24 03:00 07/02/24 03:00 Micro: Microbiology 07/01/24 18:04 Blood Culture - Preliminary Blood SPECIMEN COLLECTED 07/01/24 17:58 Blood Culture - Preliminary Blood SPECIMEN COLLECTED A&P Assessment and plan (1) Acute alcoholic hepatitis: acute alcoholic hepatitis as evidenced by elevated T. Bili, deranged LFTs imaging with diffuse hepatomegaly, no CBD dilattaion or biliary obstruction jeremy alcoholic hepatitis score at 7, no benefit to corticosteroids for now Aceaminophen and salicylate level not elevated UDS pending check acute hepatitis serology genetle iv hydration with NS @ 50 cc/ hr for hyponatremia Thiamine 100mg im now followed by 100mg po daily repelete potassium with KCL 40meq via iv prn zofran for nausea no signs of decompensated cirrhosis at this time (2) Alcohol withdrawal: CIWA monitoring Prn ativan based on CIwa scoring holding librium due to gross transminitis Plan Reported AMS at home, however patient currently AAO x 3 at time of this assessment. CT head WNL. Ammonia WNL at 51. July 02, 2024 LFTs are stable today, on the downtrend. Sodium has corrected. Discontinue IV fluids. Replete potassium for K of 3.1 today. Hemodynamics are stable. CIWA score of 12 this morning requiring IV Ativan. Acute hepatitis screen negative. Reportedly yesterday, patient's family had indicated suicidal ideation. I asked the patient about this today. He describes this as drinking excessively to the point of . He does not have an active plan to kill himself. He states he is unable to stop drinking as he feels depressed most of the time. He states his mother is a preacher and could never do this to his mother . He realizes he has a problem with alcohol usage. He understands that his liver is showing signs of alcoholic hepatitis and high probability of proceeding to liver cirrhosis. He states that he has had depression for several months and was on medications in [place]. We have requested a home list of medications from pharmacy [facility] in his hometown of [place], [place]. He states he recently came to live with his mother in [place]. He is planning to live here for the long-term. States he is depressed as he feels like a loser , states he has no place to go except his mother, that he burnt bridges in [place]. States his brother does not want to have anything to do with a drunk like me . Will consult psychiatry to help assist with management of his depression. Awaiting list of home medications to be able to resume them for hospital use. PDMP PDMP Reviewed: Not Reviewed Attestations 2 Medical Necessity Statement*: alcoholic hepatitis, depression, psych consult today Coding Level of Care Code Acute Code for Chg Fwd Diagnoses Acute alcoholic hepatitis K70.10 Alcohol withdrawal F10.939
[2024-07-02] MEDS: cefTRIAXone 1,000 mg SDV 1000 MG IVP (16:48)
[2024-07-02] MEDS: lidocaine 1% 5 ML in potassium chloride premix 100 ML 52.5 ML IV (16:49)
--- NOTE | 2024-07-02 17:59 | PC.NURSE ---
At 1700, Pt awoke and seemed very confused of his whereabouts. This nurse asked pt if he knew where he was. Pt did not respond. This nurse explained to pt that he was in the hospital. As pt awoke more he was able to talk with me some. Pt was repositioned in bed to eat dinner. Just after walking out of patients room, his roomates stepped out to inform staff that he was saying he needed to pee. At this time, patients bed alarm sounded. This nurse as well as JOJO Barboza and JOJO Chery rushed to bedside where we found pt standing beside the bed, bleeding from where he had pulled his IV out and began urinating in the floor and wall. Once we were able to get pt cleaned up and back in bed, this nurse asked pt all A&O questions. Pt could tell me his correct name, and president, however, he thought he was in [place] and the year was 1884.
[2024-07-02] MEDS: trazodone 50 mg Tablet 25 MG PO (21:17)
[2024-07-03 04:00] VITALS: BP 121/81; PULSE 71; RESP 18; TEMP 36.6; O2SAT 93
[2024-07-03 05:34] LABS: Basophils # 0.1 10^3/uL (0.0-0.1); Basophils % 0.9 %; Eosinophils # 0.1 10^3/uL (0.0-0.8); Eosinophils % 1.6 %; Hematocrit 37.4 % (37-53); Lymphocytes # 1.9 10^3/uL (0.8-4.8); Lymphocytes % 22.2 %; Mean Corpuscular HGB Conc 32.4 g/dL (30-55); Mean Corpuscular Hemoglobin 33.4 pg (27-33); Mean Corpuscular Volume 103.3 fl (82-101); Mean Platelet Volume 11.7 fL (7.4-10.4); Monocytes % 10.9 %; Neutrophils # 5.27 10^3/uL (1.8-7.7); Neutrophils % 60.6 %; Nucleated Red Blood Cells # 0.1 /100WBC; Nucleated Red Blood Cells % 0.6 %; Platelet Count 191 10^3/cmm (157-399); Red Blood Count 3.62 10^6/uL (3.85-5.65); Red Cell Distribution Width 16.7 % (12.1-15.1)
[2024-07-03 06:00] LABS: Alanine Aminotransferase 95 U/L (0-41); Albumin Level 2.7 g/dL (3.5-5.2); Alkaline Phosphatase 237 U/L (40-130); Anion Gap 15.2 (5-19); Aspartate Amino Transferase 253 U/L (0-40); Blood Urea Nitrogen 8 mg/dL (8-23); Calcium 8.5 mg/dL (8.5-10.5); Carbon Dioxide 26 mmol/L (22-29); Chloride 96 mmol/L (98-107); Creatinine Clr Calc Pharmacy 162.1671; Globulin 2.7 g/dL (1.3-4.6); Glomerular Filtration Rate 136.5 mL/min (90-130); Glucose 95 mg/dL (65-115); Osmolality Calculated 276 mOsm/kg (285-295); Potassium 3.2 mmol/L (3.5-5.1); Sodium 134 mmol/L (136-145); Total Protein 5.4 g/dL (6.6-8.7)
[2024-07-03 06:19] LABS: Total Bilirubin 9.2 mg/dL (0.15-1.2)
[2024-07-03 07:36] VITALS: BP 111/75; PULSE 68; RESP 18; TEMP 36.8; O2SAT 95
[2024-07-03] MEDS: folic acid 1 mg Tablet PO (09:01)
[2024-07-03] MEDS: escitalopram 10 mg Tablet PO (09:01)
[2024-07-03] MEDS: multivitamin therapeutic Tablet 1 TAB PO (09:01)
[2024-07-03] MEDS: thiamine 100 mg Tablet PO (09:01)
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
[2024-07-03 11:41] VITALS: BP 110/69; PULSE 69; RESP 18; TEMP 36.7; O2SAT 94
--- NOTE | 2024-07-03 13:56 | P.PN_ITS ---
Subjective 2 Subjective: No new complaints today. States he feels slightly better. IV fluids were discontinued yesterday. Sodium at 134, hypokalemia 3.2. LFTs overall unchanged. Medications: Reviewed: Yes Vitals/I&O/Wt Last Vital Signs Temp 98.0 F 07/03/24 11:41 Pulse 69 07/03/24 11:41 Resp 18 07/03/24 11:41 BP 110/69 07/03/24 11:41 Pulse Ox 94 07/03/24 11:41 O2 Del Method Room Air 07/03/24 11:41 07/02/24 07/03/24 07/03/24 22:59 06:59 14:59 Intake Total 957.5 / 1277.5 200 / 1477.5 Output Total 400 / 400 Balance 557.5 / 877.5 200 / 1077.5 Weight last 48 hrs Weight 104.689 kg Weight 103.192 kg Physical Exam 2 Narrative: General: No acute distress, AO x3 HEENT: PERRLA, pupils bilaterally equal and reactive, pallors not present, icterus + Chest: Normal vesicular breath sounds, no added sounds, equal good air entry bilaterally CVS: S1-S2 regular, no murmurs, no tachycardia, no gallops, no rubs Abdomen: Soft, nontender, no organomegaly, bowel sounds present Neuro: No focal deficits, no facial deformity, AO x3, power 5/5 in all limbs Data 07/03/24 05:06 07/03/24 05:06 Micro: Microbiology 07/01/24 18:04 Blood Culture - Preliminary Blood NEGATIVE TO DATE 07/01/24 17:58 Blood Culture - Preliminary Blood NEGATIVE TO DATE A&P Assessment and plan (1) Acute alcoholic hepatitis: acute alcoholic hepatitis as evidenced by elevated T. Bili, deranged LFTs imaging with diffuse hepatomegaly, no CBD dilattaion or biliary obstruction jeremy alcoholic hepatitis score at 7, no benefit to corticosteroids for now Aceaminophen and salicylate level not elevated UDS pending check acute hepatitis serology genetle iv hydration with NS @ 50 cc/ hr for hyponatremia Thiamine 100mg im now followed by 100mg po daily repelete potassium with KCL 40meq via iv prn zofran for nausea no signs of decompensated cirrhosis at this time (2) Alcohol withdrawal: CIWA monitoring Prn ativan based on CIwa scoring holding librium due to gross transminitis Plan Reported AMS at home, however patient currently AAO x 3 at time of this assessment. CT head WNL. Ammonia WNL at 51. July 02, 2024 LFTs are stable today, on the downtrend. Sodium has corrected. Discontinue IV fluids. Replete potassium for K of 3.1 today. Hemodynamics are stable. CIWA score of 12 this morning requiring IV Ativan. Acute hepatitis screen negative. Reportedly yesterday, patient's family had indicated suicidal ideation. I asked the patient about this today. He describes this as drinking excessively to the point of . He does not have an active plan to kill himself. He states he is unable to stop drinking as he feels depressed most of the time. He states his mother is a preacher and could never do this to his mother . He realizes he has a problem with alcohol usage. He understands that his liver is showing signs of alcoholic hepatitis and high probability of proceeding to liver cirrhosis. He states that he has had depression for several months and was on medications in [place]. We have requested a home list of medications from pharmacy [facility] in his hometown of [place], [place]. He states he recently came to live with his mother in [place]. He is planning to live here for the long-term. States he is depressed as he feels like a loser , states he has no place to go except his mother, that he burnt bridges in [place]. States his brother does not want to have anything to do with a drunk like me . Will consult psychiatry to help assist with management of his depression. Awaiting list of home medications to be able to resume them for hospital use. July 03, 2024 CIWA score is 0 at 4 AM this morning. Last IV Ativan dose was over 24 hours ago. Hypokalemia to be repleted orally. LFTs are stable. Patient understands that he needs to abstain from alcohol usage for sustained recovery from alcoholic hepatitis and to minimize risk of progression to cirrhosis. He states that he understands the risks associated with his drinking but is unable to stop. States that it is depression that is driving his drinking at this time. He was restarted on his home medications of Lexapro 10 mg daily and trazodone after confirming his medications from [facility] in [place]. Psychiatry service was consulted yesterday, awaiting recommendations, assessment if patient may benefit from inpatient psychiatry treatment for severe depression. PDMP PDMP Reviewed: Not Reviewed Attestations 2 Medical Necessity Statement*: Will take potassium, awaiting psychiatry assessment, Coding Level of Care Code Acute Code for [facility] Fwd Diagnoses Acute alcoholic hepatitis K70.10 Alcohol withdrawal F10.939
[2024-07-03] MEDS: potassium chloride ER 20 mEq Tablet 40 MEQ PO (15:54)
[2024-07-03] MEDS: cefTRIAXone 1,000 mg SDV 1000 MG IVP (15:54)
[2024-07-03 16:00] VITALS: BP 108/73; PULSE 80; RESP 18; TEMP 36.5; O2SAT 95
[2024-07-03] MEDS: LORazepam 2 mg Tablet PO ×2 (16:08→22:06)
--- NOTE | 2024-07-03 16:22 | PC.NURSE ---
This nurse attempted to call report to NPU at 1622, however, they asked to call us back in 30mins due to the RN doing an admit and the nurse who took the phone call was busy with another task.
--- NOTE | 2024-07-03 17:14 | PC.NURSE ---
This nurse called report to BIANCA Neumann in NPU at 1715. This nurse will transfer pt via w/c after he finishes dinner.
--- NOTE | 2024-07-03 18:04 | PC.NURSE ---
Pt safely transferred from med surg to NPU at 1800 via wheelchair. Pt was accompanied by this nurse and JOJO Barboza.
[2024-07-03 18:48] VITALS: BMI 30.4
[2024-07-03 20:00] VITALS: BP 109/75; PULSE 86; RESP 16; O2SAT 95
[2024-07-03] MEDS: trazodone 50 mg Tablet 25 MG PO (22:01)
[2024-07-03] MEDS: ciprofloxacin 500 mg Tablet PO (22:02)
[2024-07-03 22:15] VITALS: BP 119/81; PULSE 88; RESP 17; TEMP 36.4; O2SAT 96
[2024-07-04] VITALS (7 sets, daily range): BP systolic 97–123; BP diastolic 63–79; PULSE 69–93; RESP 16–18; TEMP 36.5–37; O2SAT 91–96
[2024-07-04 08:05] LABS: Alanine Aminotransferase 80 U/L (0-41); Albumin Level 2.6 g/dL (3.5-5.2); Alkaline Phosphatase 193 U/L (40-130); Anion Gap 12.4 (5-19); Aspartate Amino Transferase 208 U/L (0-40); Blood Urea Nitrogen 7 mg/dL (8-23); Calcium 8.3 mg/dL (8.5-10.5); Carbon Dioxide 28 mmol/L (22-29); Chloride 97 mmol/L (98-107); Creatinine Clr Calc Pharmacy 194.5805; Globulin 2.1 g/dL (1.3-4.6); Glomerular Filtration Rate 168.5 mL/min (90-130); Glucose 111 mg/dL (65-115); Osmolality Calculated 277 mOsm/kg (285-295); Potassium 3.4 mmol/L (3.5-5.1); Sodium 134 mmol/L (136-145); Total Protein 4.7 g/dL (6.6-8.7)
[2024-07-04 08:27] LABS: Total Bilirubin 9.5 mg/dL (0.15-1.2)
[2024-07-04] MEDS: ciprofloxacin 500 mg Tablet PO ×2 (08:29→21:22)
[2024-07-04] MEDS: escitalopram 10 mg Tablet PO (08:30)
[2024-07-04] MEDS: thiamine 100 mg Tablet PO (08:30)
[2024-07-04] MEDS: OLANZapine 5 mg ODT PO ×2 (08:30→21:22)
[2024-07-04] MEDS: folic acid 1 mg Tablet PO (08:30)
[2024-07-04] MEDS: multivitamin therapeutic Tablet 1 TAB PO (08:30)
[2024-07-04] MEDS: ibuprofen 600 mg Tablet PO (08:31)
--- NOTE | 2024-07-04 09:01 | PC.NURSE ---
DR. CARTER NOTIFIED OF CRITICAL TOTAL BILLIRUBIN OF 9.5 AND YESTERDAY IT WAS 9.2. CRITICAL WAS CALLED FROM [employer]INEER ERICA CARPENTER AT 0827 AND DOCTOR WAS NOTIFIED VIA TELEPHONE AT 0900 AM. PT UPDATED ON LABS AND EDUCATION PROVIDED. VERBALIZED UNDERSTANDING AND SUPPORT WAS VOICED.
--- NOTE | 2024-07-04 09:14 | PC.NURSE ---
RESTING IN BED, ASSISTED UP FOR BREAKFAST AND ATE 2 BITES OF EGGS AND DRANK 2 ORANGE JUICES. PT DENIES NAUSEA. IBUPROFEN 600 MG WAS GIVEN FOR REPORTS OF BACK PAIN. ZYDIS 5 MG GIVEN FOR INCREASED REPORTS OF ANXIETY. RATING ANXIETY /10. RATES DEPRESSION /. ALERT AND ORIENTATED TO SELF ONLY. CONFUSION IS NOTED. PT STATES ITS Monday. DENIES SI/HI AND AVH AT THIS TIME. PT IS NOTED TO HAVE JAUNDICED SKIN AND YELLOWING OF THE EYES. PT IS SLOW TO MOVE AND RESPOND. PT IS NOTED TO HAVE FLAT AFFECT AND DEPRESSED MOOD. PT DOES HAVE A ONE TO ONE SITTER DUE TO INCREASE RISK OF FALLS AND PTS IMPULSIVELY. SUPPORT VOICED.
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
--- NOTE | 2024-07-04 14:02 | PM.MISC ---
Miscellaneous Note Purpose of Documentation: Chart reviewed. LFTs are stable. Creatinine stable. Hypokalemia repleted with oral potassium 40 KCl. Trial of systemic steroids for alcoholic hepatitis to see if kidney function may potentially improve. Will order RASHMI screen additionally with a.m. labs to this is considered less likely to be the etiology of his liver dysfunction.no acute events
[2024-07-04] MEDS: potassium chloride ER 20 mEq Tablet 40 MEQ PO (14:26)
[2024-07-04] MEDS: hyDROXYzine 25 mg Capsule 50 MG PO ×2 (14:27→21:21)
[2024-07-04] MEDS: trazodone 50 mg Tablet 25 MG PO (21:22)
[2024-07-05 04:00] VITALS: BP 112/78; PULSE 90; RESP 18; TEMP 36.6; O2SAT 95
[2024-07-05 07:39] VITALS: BP 107/79; PULSE 81; RESP 20; TEMP 36.4; O2SAT 94
[2024-07-05] MEDS: predniSONE 20 mg Tablet 40 MG PO (08:10)
[2024-07-05] MEDS: haloperidol 5 mg Tablet PO (08:10)
[2024-07-05] MEDS: ibuprofen 600 mg Tablet PO (08:10)
[2024-07-05] MEDS: pantoprazole DR 40 mg Tablet PO (08:10)
[2024-07-05] MEDS: multivitamin therapeutic Tablet 1 TAB PO (08:10)
[2024-07-05] MEDS: ciprofloxacin 500 mg Tablet PO ×2 (08:10→20:34)
[2024-07-05] MEDS: thiamine 100 mg Tablet PO (08:10)
[2024-07-05] MEDS: folic acid 1 mg Tablet PO (08:10)
[2024-07-05] MEDS: escitalopram 10 mg Tablet PO (08:10)
--- NOTE | 2024-07-05 09:09 | PC.NURSE ---
IN BED RESTING WITH ONE TO ONE SITTER AT BEDSIDE. PT CONTINUES TO BE IMPULSIVE AND UNSTEADY FEET. AFFECT IS FLAT AND GUARDED WITH STAFF. SLOW TO RESPOND WITH SPEECH, AND SPEECH IS MUMBLED. PT WAS OBSERVED TO BE GRABBING AT THE AIR AND SAYING I NEED THE BUTTERFLIES TO COME BACK OVER HERE. PT WAS ASKED WHAT HE SAID AND PT REPEATED THE SAME THING. DENIES SI/HI AND AVH AT THIS TIME. PT OBSERVED TO HAVE TREMORS AND HAS DIFFICULTY HOLDING HIS CUP BUT DOES EVENTUALLY STEADY. ASSISTED UP TO THE SIDE OF THE BED TO EAT BREAKFAST AND PT DID EAT A FEW BITES AND DRANK ORANGE JUICE. RATES ANXIETY AND DEPRESSION 5/10. HALDOL 5 MG GIVEN ORDERED FOR INCREASED ANXIETY AND AGITATION AT TIMES. ABLE TO BE REDIRECTED VERBALLY. PT IS WITHDRAWN AND ISOLATES TO ROOM. SUPPORT VOICED.
[2024-07-05] MEDS: LORazepam 2 mg Tablet PO ×2 (11:58→20:37)
[2024-07-05 11:59] VITALS: BP 104/69; PULSE 74; RESP 16; TEMP 36.8; O2SAT 95
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
[2024-07-05 16:00] VITALS: BP 98/71; PULSE 67; RESP 18; TEMP 37.2; O2SAT 94
--- NOTE | 2024-07-05 16:00 | PC.NURSE ---
[address] JUDD. PT 96 HOUR RIGHTS WERE READ. SUPPORT VOICE.
[2024-07-05 16:11] LABS: Basophils % 0.3 %; Hematocrit 36.6 % (37-53); Lymphocytes # 0.6 10^3/uL (0.8-4.8); Lymphocytes % 8.6 %; Mean Corpuscular HGB Conc 33.1 g/dL (30-55); Mean Corpuscular Volume 102.8 fl (82-101); Mean Platelet Volume 12.1 fL (7.4-10.4); Monocytes # 0.4 10^3/uL (0.2-0.9); Monocytes % 5.6 %; Neutrophils # 5.63 10^3/uL (1.8-7.7); Neutrophils % 83.7 %; Nucleated Red Blood Cells % 0 %; Platelet Count 200 10^3/cmm (157-399); Red Blood Count 3.56 10^6/uL (3.85-5.65); Red Cell Distribution Width 17.2 % (12.1-15.1); White Blood Count 6.73 10^3/uL (3.29-11.43)
[2024-07-05 16:25] LABS: INR 1.27 (0.8-1.2)
[2024-07-05 16:26] LABS: Partial Thromboplastin Time 36.3 SECONDS (23.9-36.7)
[2024-07-05 16:27] LABS: Fibrinogen 362 mg/dL (174-498)
[2024-07-05 16:45] LABS: Ammonia 64 umol/L (16-60)
[2024-07-05 16:53] LABS: Alanine Aminotransferase 80 U/L (0-41); Albumin Level 2.8 g/dL (3.5-5.2); Alkaline Phosphatase 220 U/L (40-130); Chloride 99 mmol/L (98-107); Potassium 4.5 mmol/L (3.5-5.1); Sodium 134 mmol/L (136-145)
[2024-07-05 17:13] LABS: Slide Review Slide Review Perform
[2024-07-05 17:33] LABS: Anion Gap 15.5 (5-19); Aspartate Amino Transferase 193 U/L (0-40); Blood Urea Nitrogen 6 mg/dL (8-23); Calcium 8.6 mg/dL (8.5-10.5); Carbon Dioxide 24 mmol/L (22-29); Creatinine Clr Calc Pharmacy 194.5805; Globulin 2.2 g/dL (1.3-4.6); Glomerular Filtration Rate 168.5 mL/min (90-130); Glucose 161 mg/dL (65-115); Osmolality Calculated 279 mOsm/kg (285-295)
[2024-07-05 17:35] LABS: Total Bilirubin 12.1 mg/dL (0.15-1.2)
[2024-07-05 17:36] LABS: Platelet Count 200 10^3/cmm (157-399)
--- NOTE | 2024-07-05 17:41 | PC.NURSE ---
LAB CALLED THIS RN WITH A CRITICAL TOTAL BILLIRUBIN OF 12.1 WHICH IS ELEVATED SINCE YESTERDAYS LEVEL OF 9.5 AT 1735. ATTEMPTED TIMES [address] GRIGGS WATCHER [employer], CALLED MED SURG AND CALLED COUNTY ADVISER TO BE CONNECTED TO PHONE AGAIN. WILL ATTEMPT TO CONTACT AGAIN TO REPORT LAB.
[2024-07-05] MEDS: thiamine 100 mg/mL 2mL SDV IM (17:56)
--- NOTE | 2024-07-05 18:46 | PC.NURSE ---
CRITICAL TOTAL BILLIRUBIN 12.[address] GRIGGS AT [address]. TO PL[address] NEW ORDERS. 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
[2024-07-05 19:54] VITALS: BP 104/68; PULSE 68; RESP 18; TEMP 36.1; O2SAT 94
[2024-07-05] MEDS: lactulose oral liq 20 gm/30 mL UDC 10 GM PO (20:06)
[2024-07-05] MEDS: rifaximin 200 mg Tablet 600 MG PO (20:33)
[2024-07-05] MEDS: trazodone 50 mg Tablet 25 MG PO (20:34)
[2024-07-05 22:06] VITALS: BP 107/75; PULSE 69; RESP 20; TEMP 36.6; O2SAT 94
[2024-07-06] VITALS (7 sets, daily range): BP systolic 98–114; BP diastolic 65–82; PULSE 76–88; RESP 15–19; TEMP 36.5–37.1; O2SAT 92–95
[2024-07-06] MEDS: lactulose oral liq 20 gm/30 mL UDC 10 GM PO ×4 (00:24→23:49)
--- NOTE | 2024-07-06 01:11 | PC.NURSE ---
At approximately 2214 this nurse contacted to notify him of changes in the pts mental status. At this time this nurse informed the hospitalist that the pt was only oriented to his person and when asked the year he stated 1966 , and when he was asked if he knew where he was at he stated [place] . Hospitalist was also informed that pt has been experiencing tremors and excessive sweating; and was given Ativan 2mg PO due to his CIWA score of 14. It was also discussed that the pt is now a 2 person assist to get up for the bathroom whereas yesterday he was minimal assist. Dr. Monahan stated that confusion is to be expected due to pt detoxing from alcohol. Hospitalist then ordered that a bladder scan be performed due to the possibility that pt could be retaining urine. A bladder scan was performed by this nurse and Jerod VALENZUELA. 199ml of urine was noted during the bladder scan. This nurse, Jerod VALENZUELA,and Kacie URIBE all assisted pt to a standing position so he could try to void. Pt voided 210ml into urinal at bedside. Nursing staff then assisted pt back into bed.. Pt is now observed resting in bed with eyes closed and sitter at bedside.
[2024-07-06] MEDS: LORazepam 2 mg Tablet PO (04:10)
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
--- NOTE | 2024-07-06 10:22 | PC.NURSE ---
Patient refused morning medications this AM despite multiple attempts by this nurse. This nurse attempted to help patient sit up in bed as a way to help him become more alert. Patient whispering incoherently. Patient unable to state his name or or his location.
--- NOTE | 2024-07-06 10:59 | P.PN_ITS ---
Subjective 2 Subjective: Patient has noted to be more lethargic compared to when he was previously on MedSurg. He wakes up to calling his name, will tell me his name however this was very slow to respond. This is a change from previously when he was able to have a conversation. He will still tell me his name is Héctor Jacobs, tells me his correct date of and states he lives in [place] however he is extremely slow to respond. Speech is overall slurred. Does not have any gross focal motor deficits. Ammonia was rechecked yesterday and had trended up at 64. Oral lactulose was added and patient has had 2 doses at 8 PM and then at midnight, however is yet to have a bowel movement. Review of chart shows he has had Ativan 2 mg, 3 doses since yesterday. Medications: Reviewed: Yes Vitals/I&O/Wt Last Vital Signs Temp 97.7 F 07/06/24 00:00 Pulse 76 07/06/24 08:00 Resp 17 07/06/24 08:00 BP 109/68 07/06/24 08:00 Pulse Ox 95 07/06/24 08:00 O2 Del Method Room Air 07/06/24 05:23 07/05/24 07/06/24 07/06/24 22:59 06:59 14:59 Output Total 210 / 210 Balance -210 / -210 Physical Exam 2 Narrative: General: No acute distress, lethargic when compared to seen previously. HEENT: PERRLA, pupils bilaterally equal and reactive, pallors not present, icterus + Chest: Normal vesicular breath sounds, no added sounds, equal good air entry bilaterally CVS: S1-S2 regular, no murmurs, no tachycardia, no gallops, no rubs Abdomen: Soft, nontender, no organomegaly, bowel sounds present Neuro: No focal deficits, no facial deformity, AO x3, power 5/5 in all limbs Data 07/05/24 15:52 07/05/24 15:52 A&P Assessment and plan (1) Acute alcoholic hepatitis: acute alcoholic hepatitis as evidenced by elevated T. Bili, deranged LFTs imaging with diffuse hepatomegaly, no CBD dilattaion or biliary obstruction jeremy alcoholic hepatitis score at 7, no benefit to corticosteroids for now Aceaminophen and salicylate level not elevated UDS pending check acute hepatitis serology genetle iv hydration with NS @ 50 cc/ hr for hyponatremia Thiamine 100mg im now followed by 100mg po daily repelete potassium with KCL 40meq via iv prn zofran for nausea no signs of decompensated cirrhosis at this time (2) Alcohol withdrawal: CIWA monitoring Prn ativan based on CIwa scoring holding librium due to gross transminitis Plan Reported AMS at home, however patient currently AAO x 3 at time of this assessment. CT head WNL. Ammonia WNL at 51. July 02, 2024 LFTs are stable today, on the downtrend. Sodium has corrected. Discontinue IV fluids. Replete potassium for K of 3.1 today. Hemodynamics are stable. CIWA score of 12 this morning requiring IV Ativan. Acute hepatitis screen negative. Reportedly yesterday, patient's family had indicated suicidal ideation. I asked the patient about this today. He describes this as drinking excessively to the point of . He does not have an active plan to kill himself. He states he is unable to stop drinking as he feels depressed most of the time. He states his mother is a preacher and could never do this to his mother . He realizes he has a problem with alcohol usage. He understands that his liver is showing signs of alcoholic hepatitis and high probability of proceeding to liver cirrhosis. He states that he has had depression for several months and was on medications in [place]. We have requested a home list of medications from pharmacy [facility] in his hometown of [place], [place]. He states he recently came to live with his mother in [place]. He is planning to live here for the long-term. States he is depressed as he feels like a loser , states he has no place to go except his mother, that he burnt bridges in [place]. States his brother does not want to have anything to do with a drunk like me . Will consult psychiatry to help assist with management of his depression. Awaiting list of home medications to be able to resume them for hospital use. July 03, 2024 CIWA score is 0 at 4 AM this morning. Last IV Ativan dose was over 24 hours ago. Hypokalemia to be repleted orally. LFTs are stable. Patient understands that he needs to abstain from alcohol usage for sustained recovery from alcoholic hepatitis and to minimize risk of progression to cirrhosis. He states that he understands the risks associated with his drinking but is unable to stop. States that it is depression that is driving his drinking at this time. He was restarted on his home medications of Lexapro 10 mg daily and trazodone after [facility] [place]. Psychiatry service was consulted yesterday, awaiting recommendations, assessment if patient may benefit from inpatient psychiatry treatment for severe depression. July 06, 2024 Since last being on MedSur floor, patient has become more lethargic. He is very slow to respond. He is no longer ambulating in the room independently as he was doing previously. He has needed assistance to even feed. Ammonia has trended up to 64. Suspect hepatic encephalopathy to be the cause of his current lethargy. He has received 2 doses of lactulose starting last night, however has not had a bowel movement yet. Added rifaximin 600 mg p.o. twice daily also last evening. Will transfer patient to the medicine service given increased lethargy and hepatic encephalopathy. Reduce dose of Ativan, check UA and urine culture. DC olanzapine until mental status improves, he received 2 doses on July 04, 2024. PDMP PDMP Reviewed: Not Reviewed Attestations 2 Medical Necessity Statement*: Transfer to medicine service in view of hepatic encephalopathy. Coding Level of Care Code Acute Code for g Fwd Diagnoses Acute alcoholic hepatitis K70.10 Alcohol withdrawal F10.939
--- NOTE | 2024-07-06 11:47 | PC.NURSE ---
off unit at 1146 with security and Malyn, PSA
[2024-07-06 13:17] LABS: Basophils # 0.1 10^3/uL (0.0-0.1); Eosinophils # 0.1 10^3/uL (0.0-0.8); Eosinophils % 0.6 %; Hematocrit 38.2 % (37-53); Lymphocytes # 1.3 10^3/uL (0.8-4.8); Lymphocytes % 15.5 %; Mean Corpuscular HGB Conc 31.9 g/dL (30-55); Mean Corpuscular Hemoglobin 34.1 pg (27-33); Mean Corpuscular Volume 106.7 fl (82-101); Mean Platelet Volume 11.3 fL (7.4-10.4); Monocytes # 0.6 10^3/uL (0.2-0.9); Monocytes % 7.6 %; Neutrophils # 6.17 10^3/uL (1.8-7.7); Nucleated Red Blood Cells % 0 %; Platelet Count 200 10^3/cmm (157-399); Red Blood Count 3.58 10^6/uL (3.85-5.65); Red Cell Distribution Width 17.7 % (12.1-15.1); White Blood Count 8.33 10^3/uL (3.29-11.43)
[2024-07-06 13:34] LABS: Anion Gap 14.2 (5-19); Blood Urea Nitrogen 9 mg/dL (8-23); Calcium 8.5 mg/dL (8.5-10.5); Carbon Dioxide 27 mmol/L (22-29); Chloride 100 mmol/L (98-107); Creatinine Clr Calc Pharmacy 121.6128; Globulin 2.1 g/dL (1.3-4.6); Glucose 94 mg/dL (65-115); Potassium 4.2 mmol/L (3.5-5.1); Sodium 137 mmol/L (136-145)
[2024-07-06] MEDS: pantoprazole DR 40 mg Tablet PO (13:36)
[2024-07-06] MEDS: multivitamin therapeutic Tablet 1 TAB PO (13:37)
[2024-07-06] MEDS: escitalopram 10 mg Tablet PO (13:37)
[2024-07-06] MEDS: folic acid 1 mg Tablet PO (13:37)
[2024-07-06] MEDS: thiamine 100 mg/mL 2mL SDV IM ×2 (13:37→18:47)
[2024-07-06] MEDS: methylPREDNISolone sod succ 40 mg/mL INJ IVP ×2 (13:38→23:49)
[2024-07-06] MEDS: cefTRIAXone 1,000 mg SDV 1000 MG IVP (13:38)
[2024-07-06 13:57] LABS: Alanine Aminotransferase 74 U/L (0-41); Albumin Level 2.6 g/dL (3.5-5.2); Alkaline Phosphatase 187 U/L (40-130); Aspartate Amino Transferase 183 U/L (0-40); Total Protein 4.7 g/dL (6.6-8.7)
[2024-07-06 14:10] LABS: Total Bilirubin 10.8 mg/dL (0.15-1.2)
[2024-07-06 14:26] LABS: ABG PCO2 36.7 mmHg (35-45); ABG PH Result 7.51 (7.35-7.45); Arterial Blood Gas Hematocrit 40.1 % (42-52); Base Excess ABG 5.8 mmol/L (-2.0-2.0); Blood Gas Operator Identificat glc; Blood Gas Sample Site Brachial, right; Blood Gas Sample Type Arterial; HCO3 ABG 29.1 mmol/L (22-26); Oxygen Device ROOM AIR; PO2 ABG 68.6 mmHg (80.0-100.0); PO2 FiO2 Ratio Arterial Blood 326
--- NOTE | 2024-07-06 14:48 | PC.NURSE ---
Pharmacy notified x2 Xifaxan is not loaded in the pixis. [facility] stated they would load the medication, still not loaded at 1449 therefore 1800 medication will be given. Patient did take all other medications with not problems.
[2024-07-06] MEDS: rifaximin 200 mg Tablet 600 MG PO (18:46)
[2024-07-07] VITALS (7 sets, daily range): BP systolic 112–130; BP diastolic 71–86; PULSE 59–94; RESP 16–19; TEMP 36.4–37.1; O2SAT 91–95
[2024-07-07 04:52] LABS: Basophils % 0.1 %; Hematocrit 37.3 % (37-53); Lymphocytes # 0.5 10^3/uL (0.8-4.8); Lymphocytes % 7.1 %; Mean Corpuscular HGB Conc 32.4 g/dL (30-55); Mean Corpuscular Hemoglobin 34.2 pg (27-33); Mean Corpuscular Volume 105.4 fl (82-101); Mean Platelet Volume 11.3 fL (7.4-10.4); Monocytes # 0.2 10^3/uL (0.2-0.9); Monocytes % 2.6 %; Neutrophils # 6.51 10^3/uL (1.8-7.7); Neutrophils % 89.1 %; Nucleated Red Blood Cells % 0 %; Platelet Count 170 10^3/cmm (157-399); Red Blood Count 3.54 10^6/uL (3.85-5.65); Red Cell Distribution Width 17.6 % (12.1-15.1); White Blood Count 7.31 10^3/uL (3.29-11.43)
[2024-07-07 05:07] LABS: Alanine Aminotransferase 73 U/L (0-41); Albumin Level 2.6 g/dL (3.5-5.2); Alkaline Phosphatase 168 U/L (40-130); Blood Urea Nitrogen 10 mg/dL (8-23); Calcium 8.4 mg/dL (8.5-10.5); Carbon Dioxide 22 mmol/L (22-29); Chloride 101 mmol/L (98-107); Creatinine Clr Calc Pharmacy 243.2257; Globulin 2.6 g/dL (1.3-4.6); Glucose 132 mg/dL (65-115); Osmolality Calculated 281 mOsm/kg (285-295); Sodium 135 mmol/L (136-145); Total Protein 5.2 g/dL (6.6-8.7)
[2024-07-07 05:10] LABS: Anion Gap 16.3 (5-19); Aspartate Amino Transferase 182 U/L (0-40); Potassium 4.3 mmol/L (3.5-5.1)
[2024-07-07 05:11] LABS: Total Bilirubin 10.7 mg/dL (0.15-1.2)
[2024-07-07 05:21] LABS: Bilirubin Urine 3+ (Negative); Blood Urine Negative (Negative); Glucose Urine UA Negative (Normal); Ketones Urine Negative (Negative); Leukocyte Esterase Urine Trace (Negative); Nitrate Urine Positive (Negative); Protein Urine Trace (Negative); Specific Gravity, Urine 1.021 (1.005-1.030); Urine Appearance Clear (CLEAR); Urine Color Dark Yellow (Yellow); pH Urine 5.5 (5-7)
[2024-07-07 05:26] LABS: Add Urine Microscopic? YES; Bacteria Urine None Seen /hpf; Hyaline Casts Urine 1.65 /lpf; Squamous Epithelial Cell Urine 0-5 /hpf (0-5); WBC Urine 0-5 /hpf (0-5)
[2024-07-07] MEDS: lactulose oral liq 20 gm/30 mL UDC 10 GM PO ×4 (05:47→23:50)
[2024-07-07 06:51] LABS: Ammonia 43 umol/L (16-60)
[2024-07-07] MEDS: pantoprazole DR 40 mg Tablet PO (09:53)
[2024-07-07] MEDS: escitalopram 10 mg Tablet PO (09:53)
[2024-07-07] MEDS: rifaximin 200 mg Tablet 600 MG PO ×2 (09:53→18:10)
[2024-07-07] MEDS: folic acid 1 mg Tablet PO (09:53)
[2024-07-07] MEDS: multivitamin therapeutic Tablet 1 TAB PO (09:54)
[2024-07-07] MEDS: thiamine 100 mg/mL 2mL SDV IM ×2 (09:54→18:10)
[2024-07-07] MEDS: methylPREDNISolone sod succ 40 mg/mL INJ IVP (12:51)
[2024-07-07] MEDS: cefTRIAXone 1,000 mg SDV 1000 MG IVP (12:51)
--- NOTE | 2024-07-07 17:26 | P.PN_ITS ---
Subjective 2 Subjective: Patient remains confused and disoriented. He does wake up to weakly state his name, age, date of however remains unsteady on his feet. He has had 2 bowel movement since starting the lactulose. Medications: Reviewed: Yes Vitals/I&O/Wt Last Vital Signs Temp 98.1 F 07/07/24 15:45 Pulse 70 07/07/24 15:45 Resp 19 H 07/07/24 15:45 BP 130/86 07/07/24 15:45 Pulse Ox 93 07/07/24 15:45 O2 Del Method Room Air 07/07/24 15:45 07/07/24 07/07/24 07/07/24 07:59 14:59 22:59 Intake Total 480 / 480 240 / 240 480 / 720 Balance 480 / 480 240 / 240 480 / 720 Weight last 48 hrs Weight 102.376 kg Physical Exam 2 Narrative: General: No acute distress, lethargic when compared to seen previously. HEENT: PERRLA, pupils bilaterally equal and reactive, pallors not present, icterus + Chest: Normal vesicular breath sounds, no added sounds, equal good air entry bilaterally CVS: S1-S2 regular, no murmurs, no tachycardia, no gallops, no rubs Abdomen: Soft, nontender, no organomegaly, bowel sounds present Neuro: No focal deficits, no facial deformity, AO x3, power 5/5 in all limbs Data 07/07/24 04:39 07/07/24 04:39 Micro: Microbiology 07/01/24 18:04 Blood Culture - Final Blood NO GROWTH AFTER 5 DAYS 07/01/24 17:58 Blood Culture - Final Blood NO GROWTH AFTER 5 DAYS A&P Assessment and plan (1) Acute alcoholic hepatitis: acute alcoholic hepatitis as evidenced by elevated T. Bili, deranged LFTs imaging with diffuse hepatomegaly, no CBD dilattaion or biliary obstruction jeremy alcoholic hepatitis score at 7, no benefit to corticosteroids for now Aceaminophen and salicylate level not elevated UDS pending check acute hepatitis serology genetle iv hydration with NS @ 50 cc/ hr for hyponatremia Thiamine 100mg im now followed by 100mg po daily repelete potassium with KCL 40meq via iv prn zofran for nausea no signs of decompensated cirrhosis at this time (2) Alcohol withdrawal: CIWA monitoring Prn ativan based on CIwa scoring holding librium due to gross transminitis (3) Encephalopathy, hepatic: Plan Reported AMS at home, however patient currently AAO x 3 at time of this assessment. CT head WNL. Ammonia WNL at 51. July 02, 2024 LFTs are stable today, on the downtrend. Sodium has corrected. Discontinue IV fluids. Replete potassium for K of 3.1 today. Hemodynamics are stable. CIWA score of 12 this morning requiring IV Ativan. Acute hepatitis screen negative. Reportedly yesterday, patient's family had indicated suicidal ideation. I asked the patient about this today. He describes this as drinking excessively to the point of . He does not have an active plan to kill himself. He states he is unable to stop drinking as he feels depressed most of the time. He states his mother is a preacher and could never do this to his mother . He realizes he has a problem with alcohol usage. He understands that his liver is showing signs of alcoholic hepatitis and high probability of proceeding to liver cirrhosis. He states that he has had depression for several months and was on medications in [place]. We have requested a home list of medications from pharmacy [facility] in his hometown of [place], [place]. He states he recently came to live with his mother in [place]. He is planning to live here for the long-term. States he is depressed as he feels like a loser , states he has no place to go except his mother, that he burnt bridges in [place]. States his brother does not want to have anything to do with a drunk like me . Will consult psychiatry to help assist with management of his depression. Awaiting list of home medications to be able to resume them for hospital use. July 03, 2024 CIWA score is 0 at 4 AM this morning. Last IV Ativan dose was over 24 hours ago. Hypokalemia to be repleted orally. LFTs are stable. Patient understands that he needs to abstain from alcohol usage for sustained recovery from alcoholic hepatitis and to minimize risk of progression to cirrhosis. He states that he understands the risks associated with his drinking but is unable to stop. States that it is depression that is driving his drinking at this time. He was restarted on his home medications of Lexapro 10 mg daily and trazodone after confirming his medications from [facility] pharmacy in [place]. Psychiatry service was consulted yesterday, awaiting recommendations, assessment if patient may benefit from inpatient psychiatry treatment for severe depression. July 06, 2024 Since last being on MedSurg floor, patient has become more lethargic. He is very slow to respond. He is no longer ambulating in the room independently as he was doing previously. He has needed assistance to even feed. Ammonia has trended up to 64. Suspect hepatic encephalopathy to be the cause of his current lethargy. He has received 2 doses of lactulose starting last night, however has not had a bowel movement yet. Added rifaximin 600 mg p.o. twice daily also last evening. Will transfer patient to the medicine service given increased lethargy and hepatic encephalopathy. Reduce dose of Ativan, check UA and urine culture. DC olanzapine until mental status improves, he received 2 doses on July 04, 2024. July 07, 2024 Patient continues to be confused and disoriented. He has had 2 bowel movement since initiation of lactulose. Ammonia is downtrending today. Will continue lactulose at current dosing. Target to 2-3 bowel movements per day. AST is improving from 341 upon admission to 182 today. ALT improving from 1 1 9-73. T. bili remains persistently elevated at 10.7, same as admission though it did peak at 12.1 on July 05, 2024. [facility] Though discriminant function was less than 32, patient did get started on corticosteroids due to lack of improvement. He has been abstinent from alcohol since admission on July 01. Ct head negative from admission. Started prednisone between July 04 to July 06, then transition to IV methylprednisolone yesterday. Currently on 40 mg IV every 24 hours. He is on day 4 of steroids today. CAn assess Lille score at day 7 to assess for improvement. Continue ceftriaxone 1 g IV every 24 hours empirically. UA positive from this morning. Patient was previously transitioned to oral ciprofloxacin, now back on IV ceftriaxone. Urine culture has been ordered, results are currently awaited. Gentle IV fluid to maintain hydration, patient has had poor p.o. intake over the past 3 to 4 days. Clinically does not appear to have signs of hypervolemia at this time. Call placed to patient's brother to discuss all updates, however received voicemail. We have left a message asking the brother to call us back. PDMP PDMP Reviewed: Not Reviewed Attestations 2 Medical Necessity Statement*: Continued admission for hepatic encephalopathy, confusion, disorientation, severe depression., Alcoholic hepatitis Coding Level of Care Code Acute Code for [facility] Fwd Diagnoses Acute alcoholic hepatitis K70.10 Alcohol withdrawal F10.939 Encephalopathy, hepatic K76.82
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
[2024-07-07] MEDS: sodium chloride 0.9% 1,000 ML 50 ML IV (18:08)
[2024-07-07] MEDS: albumin 12.5 GM/250 ML VIAL IV (18:37)
[2024-07-08 03:10] LABS: Basophils % 0.1 %; Eosinophils % 0.2 %; Hematocrit 32.8 % (37-53); Lymphocytes # 0.9 10^3/uL (0.8-4.8); Lymphocytes % 9.4 %; Mean Corpuscular HGB Conc 33.8 g/dL (30-55); Mean Corpuscular Hemoglobin 34.7 pg (27-33); Mean Corpuscular Volume 102.5 fl (82-101); Mean Platelet Volume 11.8 fL (7.4-10.4); Monocytes # 0.8 10^3/uL (0.2-0.9); Monocytes % 9.3 %; Neutrophils # 7.31 10^3/uL (1.8-7.7); Neutrophils % 80.4 %; Nucleated Red Blood Cells % 0 %; Platelet Count 208 10^3/cmm (157-399); White Blood Count 9.08 10^3/uL (3.29-11.43)
[2024-07-08 03:22] LABS: INR 1.31 (0.8-1.2)
[2024-07-08 03:40] LABS: Alanine Aminotransferase 63 U/L (0-41); Albumin Level 2.7 g/dL (3.5-5.2); Alkaline Phosphatase 150 U/L (40-130); Anion Gap 12.7 (5-19); Aspartate Amino Transferase 140 U/L (0-40); Blood Urea Nitrogen 12 mg/dL (8-23); Carbon Dioxide 26 mmol/L (22-29); Chloride 105 mmol/L (98-107); Creatinine Clr Calc Pharmacy 160.4966; Globulin 1.8 g/dL (1.3-4.6); Glomerular Filtration Rate 136.5 mL/min (90-130); Glucose 93 mg/dL (65-115); Osmolality Calculated 289 mOsm/kg (285-295); Potassium 3.7 mmol/L (3.5-5.1); Sodium 140 mmol/L (136-145); Total Protein 4.5 g/dL (6.6-8.7)
[2024-07-08 03:48] LABS: Total Bilirubin 9.2 mg/dL (0.15-1.2)
[2024-07-08 04:00] VITALS: BP 117/73; PULSE 58; RESP 18; TEMP 36.6; O2SAT 94
[2024-07-08] MEDS: lactulose oral liq 20 gm/30 mL UDC 10 GM PO ×3 (05:52→17:47)
[2024-07-08 08:00] VITALS: BP 125/85; PULSE 72; O2SAT 92
[2024-07-08] MEDS: rifaximin 200 mg Tablet 600 MG PO ×2 (08:31→17:47)
[2024-07-08] MEDS: thiamine 100 mg/mL 2mL SDV IM (08:32)
[2024-07-08] MEDS: multivitamin therapeutic Tablet 1 TAB PO (08:32)
[2024-07-08] MEDS: folic acid 1 mg Tablet PO (08:32)
[2024-07-08] MEDS: pantoprazole DR 40 mg Tablet PO (08:32)
[2024-07-08] MEDS: escitalopram 10 mg Tablet PO (08:32)
[2024-07-08 11:11] VITALS: BP 105/68; PULSE 71; RESP 17; TEMP 36.7; O2SAT 92
--- NOTE | 2024-07-08 12:54 | P.PN_ITS ---
Subjective 2 Subjective: Seen today. Patient is confused at this time. He states he is in [place]. Vitals/I&O/Wt Last Vital Signs Temp 98.0 F 07/08/24 11:11 Pulse 71 07/08/24 11:11 Resp 17 07/08/24 11:11 BP 105/68 07/08/24 11:11 Pulse Ox 92 07/08/24 11:11 O2 Del Method Room Air 07/08/24 11:11 07/07/24 07/08/24 07/08/24 22:59 06:59 14:59 Intake Total 730 / 970 Output Total 200 / 200 Balance 730 / 970 -200 / 770 Weight last 48 hrs Weight 102.376 kg Physical Exam 2 Narrative: General: No acute distress, oriented to self, alert at this time. Confused. Appears jaundiced HEENT: PERRLA, pupils bilaterally equal and reactive, pallors not present, icterus + Chest: Normal vesicular breath sounds, no added sounds, equal good air entry bilaterally CVS: S1-S2 regular, no murmurs, no tachycardia, no gallops, no rubs Abdomen: Soft, nontender, no organomegaly, bowel sounds present Neuro: No focal deficits, no facial deformity, patient is confused. Data 07/08/24 02:47 07/08/24 02:47 Micro: Microbiology 07/08/24 00:00 Urine Culture - Preliminary Urine,Voided A&P Assessment and plan (1) Acute alcoholic hepatitis: acute alcoholic hepatitis as evidenced by elevated T. Bili, deranged LFTs imaging with diffuse hepatomegaly, no CBD dilattaion or biliary obstruction jeremy alcoholic hepatitis score at 7, no benefit to corticosteroids for now Aceaminophen and salicylate level not elevated UDS pending check acute hepatitis serology genetle iv hydration with NS @ 50 cc/ hr for hyponatremia Thiamine 100mg im now followed by 100mg po daily repelete potassium with KCL 40meq via iv prn zofran for nausea no signs of decompensated cirrhosis at this time (2) Alcohol withdrawal: CIWA monitoring Prn ativan based on CIwa scoring holding librium due to gross transminitis (3) Encephalopathy, hepatic: Plan Reported AMS at home, however patient currently AAO x 3 at time of this assessment. CT head WNL. Ammonia WNL at 51. July 02, 2024 LFTs are stable today, on the downtrend. Sodium has corrected. Discontinue IV fluids. Replete potassium for K of 3.1 today. Hemodynamics are stable. CIWA score of 12 this morning requiring IV Ativan. Acute hepatitis screen negative. Reportedly yesterday, patient's family had indicated suicidal ideation. I asked the patient about this today. He describes this as drinking excessively to the point of . He does not have an active plan to kill himself. He states he is unable to stop drinking as he feels depressed most of the time. He states his mother is a preacher and could never do this to his mother . He realizes he has a problem with alcohol usage. He understands that his liver is showing signs of alcoholic hepatitis and high probability of proceeding to liver cirrhosis. He states that he has had depression for several months and was on medications in [place]. We have requested a home list of medications from pharmacy [facility] in his hometown of [place], [place]. He states he recently came to live with his mother in [place]. He is planning to live here for the long-term. States he is depressed as he feels like a loser , states he has no place to go except his mother, that he burnt bridges in [place]. States his brother does not want to have anything to do with a drunk like me . Will consult psychiatry to help assist with management of his depression. Awaiting list of home medications to be able to resume them for hospital use. July 03, 2024 CIWA score is 0 at 4 AM this morning. Last IV Ativan dose was over 24 hours ago. Hypokalemia to be repleted orally. LFTs are stable. Patient understands that he needs to abstain from alcohol usage for sustained recovery from alcoholic hepatitis and to minimize risk of progression to cirrhosis. He states that he understands the risks associated with his drinking but is unable to stop. States that it is depression that is driving his drinking at this time. He was restarted on his home medications of Lexapro 10 mg daily and trazodone after confirming his medications from [facility] in [place]. Psychiatry service was consulted yesterday, awaiting recommendations, assessment if patient may benefit from inpatient psychiatry treatment for severe depression. July 06, 2024 Since last being on [facility] floor, patient has become more lethargic. He is very slow to respond. He is no longer ambulating in the room independently as he was doing previously. He has needed assistance to even feed. Ammonia has trended up to 64. Suspect hepatic encephalopathy to be the cause of his current lethargy. He has received 2 doses of lactulose starting last night, however has not had a bowel movement yet. Added rifaximin 600 mg p.o. twice daily also last evening. Will transfer patient to the medicine service given increased lethargy and hepatic encephalopathy. Reduce dose of Ativan, check UA and urine culture. DC olanzapine until mental status improves, he received 2 doses on July 04, 2024. July 07, 2024 Patient continues to be confused and disoriented. He has had 2 bowel movement since initiation of lactulose. Ammonia is downtrending today. Will continue lactulose at current dosing. Target to 2-3 bowel movements per day. AST is improving from 341 upon admission to 182 today. ALT improving from 1 1 9-73. T. bili remains persistently elevated at 10.7, same as admission though it did peak at 12.1 on July 05, 2024. [facility] discriminant function was at 19. Though discriminant function was less than 32, patient did get started on corticosteroids due to lack of improvement. He has been abstinent from alcohol since admission on July 01. Ct head negative from admission. Started prednisone between July 04 to July 06, then transition to IV methylprednisolone yesterday. Currently on 40 mg IV every 24 hours. He is on day 4 of steroids today. CAn assess Lille score at day 7 to assess for improvement. Continue ceftriaxone 1 g IV every 24 hours empirically. UA positive from this morning. Patient was previously transitioned to oral ciprofloxacin, now back on IV ceftriaxone. Urine culture has been ordered, results are currently awaited. Gentle IV fluid to maintain hydration, patient has had poor p.o. intake over the past 3 to 4 days. Clinically does not appear to have signs of hypervolemia at this time. Call placed to patient's brother to discuss all updates, however received voicemail. We have left a message asking the brother to call us back. 07/08/2024 Patient continues to be confused and disoriented. He had 2 more bowel movement since yesterday. AST ALT are slightly improving. T. bili is elevated however is trending downward since admission. Continue corticosteroids at this time. Continue ceftriaxone empirically at this time as well. Discussed with psychiatry today at length. Underlying Warnicke's encephalopathy cannot be ruled out. I will place on high- dose thiamine protocol at this time. Start thiamine [address] on 500 3 times daily x 48 hours. Consider transfer to higher level care facility where GI services may be available. Patient will benefit from gastroenterology consultation going forward should there be no improvement in next 24 to 48 hours. PDMP PDMP Reviewed: Not Reviewed Attestations 2 Medical Necessity Statement*: Continued admission for hepatic encephalopathy, confusion, disorientation, severe depression., Alcoholic hepatitis Diagnoses Acute alcoholic hepatitis K70.10 Alcohol withdrawal F10.939 Encephalopathy, hepatic K76.82
[2024-07-08] MEDS: methylPREDNISolone sod succ 40 mg/mL INJ IVP (12:58)
[2024-07-08] MEDS: cefTRIAXone 1,000 mg SDV 1000 MG IVP (12:58)
[2024-07-08] MEDS: sodium chloride 0.9% 1,000 ML 50 ML IV (13:18)
[2024-07-08 14:12] LABS: Gamma Glutamyl Transferase 527 U/L (8-61)
[2024-07-08] MEDS: thiamine 500 MG in sodium chloride 0.9% (100 ml) 100 ML 210 MG IV ×2 (15:11→20:30)
[2024-07-08 17:04] VITALS: BP 118/74; PULSE 66; RESP 17; TEMP 36.9; O2SAT 92
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
[2024-07-08 19:09] LABS: COMPLEMENT, TOTAL (CH50) 51 U/mL (31-60)
[2024-07-08 20:00] VITALS: BP 130/87; PULSE 66; RESP 18; TEMP 36.5; O2SAT 93
[2024-07-08 23:46] VITALS: BP 135/92; PULSE 60; RESP 18; TEMP 36.8; O2SAT 95
[2024-07-09] MEDS: lactulose oral liq 20 gm/30 mL UDC 10 GM PO ×3 (00:08→17:01)
[2024-07-09 03:46] VITALS: BP 124/75; PULSE 53; RESP 16; TEMP 36.5; O2SAT 94
[2024-07-09 05:30] LABS: Basophils % 0.1 %; Eosinophils % 0.2 %; Hematocrit 41.1 % (37-53); Lymphocytes # 1.2 10^3/uL (0.8-4.8); Lymphocytes % 13.6 %; Mean Corpuscular HGB Conc 32.4 g/dL (30-55); Mean Corpuscular Hemoglobin 33.6 pg (27-33); Mean Corpuscular Volume 103.8 fl (82-101); Mean Platelet Volume 11.7 fL (7.4-10.4); Monocytes # 0.7 10^3/uL (0.2-0.9); Monocytes % 7.5 %; Neutrophils # 7.08 10^3/uL (1.8-7.7); Neutrophils % 77.7 %; Nucleated Red Blood Cells % 0 %; Platelet Count 225 10^3/cmm (157-399); Red Blood Count 3.96 10^6/uL (3.85-5.65); Red Cell Distribution Width 16.7 % (12.1-15.1); White Blood Count 9.11 10^3/uL (3.29-11.43)
[2024-07-09 05:55] LABS: COMPLEMENT COMPONENT C3C 178 mg/dL (82-185); COMPLEMENT COMPONENT C4C 30 mg/dL (15-53)
[2024-07-09 06:12] LABS: Alanine Aminotransferase 74 U/L (0-41); Alkaline Phosphatase 171 U/L (40-130); Blood Urea Nitrogen 9 mg/dL (8-23); Calcium 8.6 mg/dL (8.5-10.5); Carbon Dioxide 26 mmol/L (22-29); Chloride 105 mmol/L (98-107); Creatinine Clr Calc Pharmacy 192.3601; Globulin 2.7 g/dL (1.3-4.6); Glomerular Filtration Rate 168.5 mL/min (90-130); Glucose 89 mg/dL (65-115); Magnesium 2.4 mg/dL (1.7-2.3); Osmolality Calculated 290 mOsm/kg (285-295); Sodium 141 mmol/L (136-145); Total Protein 5.7 g/dL (6.6-8.7)
[2024-07-09 06:33] LABS: Anion Gap 14.1 (5-19); Aspartate Amino Transferase 154 U/L (0-40); Potassium 4.1 mmol/L (3.5-5.1)
[2024-07-09 06:34] LABS: Total Bilirubin 10.2 mg/dL (0.15-1.2)
--- NOTE | 2024-07-09 06:38 | PC.NURSE ---
This nurse recieved critical lab result. Patients total bilirubin is 10.2. Yesterdays result was 9.2. Nurse is awaiting response from
[2024-07-09 08:00] VITALS: BP 141/93; PULSE 74; RESP 18; TEMP 37; O2SAT 91
[2024-07-09 08:29] LABS: CENTROMERE B ANTIBODY <1.0 NEG AI (<1.0 NEG); JO-1 ANTIBODY <1.0 NEG AI (<1.0 NEG); RNP ANTIBODY <1.0 NEG AI (<1.0 NEG); SCL-70 ANTIBODY <1.0 NEG AI (<1.0 NEG); SJOGREN'S ANTIBODY (SS-A) <1.0 NEG AI (<1.0 NEG); SM ANTIBODY <1.0 NEG AI (<1.0 NEG); SS-B <1.0 NEG AI (<1.0 NEG)
[2024-07-09] MEDS: escitalopram 10 mg Tablet PO (08:43)
[2024-07-09] MEDS: rifaximin 200 mg Tablet 600 MG PO ×2 (08:43→17:02)
[2024-07-09] MEDS: folic acid 1 mg Tablet PO (08:43)
[2024-07-09] MEDS: multivitamin therapeutic Tablet 1 TAB PO (08:43)
[2024-07-09] MEDS: pantoprazole DR 40 mg Tablet PO (08:43)
[2024-07-09] MEDS: thiamine 500 MG in sodium chloride 0.9% (100 ml) 100 ML 210 MG IV ×3 (08:45→20:28)
[2024-07-09] MEDS: sodium chloride 0.9% 1,000 ML 50 ML IV (08:48)
--- NOTE | 2024-07-09 11:15 | P.PN_ITS ---
Subjective 2 Subjective: Patient sleeping but awakens to voice. He reports that he is feeling better. He does not remember all the details of his hospitalization to date. Inquires why he is still on a liquid diet and would like some solid food today. Reports significant diarrhea with several episodes so far this shift. We discussed decreasing his lactulose dosing. He denies fevers or chills. Denies other new complaints. Medications: Reviewed: Yes Vitals/I&O/Wt Last Vital Signs Temp 98.6 F 07/09/24 08:00 Pulse 74 07/09/24 08:00 Resp 18 07/09/24 08:00 BP 141/93 07/09/24 08:00 Pulse Ox 91 07/09/24 08:00 O2 Del Method Room Air 07/09/24 08:00 07/08/24 07/09/24 07/09/24 22:59 06:59 14:59 Intake Total 690 / 1648.333 120 / 6253.932 5318 / 1440 Balance 690 / 1648.333 120 / 8119.036 6458 / 1440 Weight last 48 hrs Weight 102.104 kg Physical Exam 2 Narrative: General: Patient is sleeping. Awakens to voice. Conversational. No acute distress. Head: Normocephalic. Icteric sclera. Neck: No JVD. Cardiovascular: RRR. No gallops. No murmurs. Lungs: Clear to auscultation, no use of accessory muscles, no crackles or wheezes. Skin: Diffuse jaundice. No rashes. Abdomen: Normal bowel sounds, abdomen soft and nontender. Extremities: No cyanosis or clubbing. Musculoskeletal: No swollen or erythematous joints. Neurological: Moves all 4 extremities. No myoclonus. Data 07/09/24 05:05 07/09/24 05:05 Micro: Microbiology 07/08/24 00:00 Urine Culture - Final Urine,Voided A&P Assessment and plan (1) Acute alcoholic hepatitis: (2) Alcohol withdrawal: (3) Encephalopathy, hepatic: Plan Acute hepatic encephalopathy -Hepatic encephalopathy seems resolved, he is awake alert and oriented on exam -Continue with lactulose to prevent recurrence, will reduce dose due to copious diarrhea -Advance diet Alcoholic hepatitis Transaminitis with hyperbilirubinemia -Continue steroids, there is been minimal improvement in his bilirubin; query if chronic -Will need to establish with gastroenterology as outpatient after recovery Alcohol use disorder -Continue thiamine, folic acid and vitamin -Patient's been in the hospital for 8 days, will discontinue CIWA protocol Acute complicated urinary tract infection -Continue ceftriaxone Severe depression -Psychiatry is following, defer psychiatric medical management to psych -Hopefully can go back to NPU soon DVT prophylaxis: SCD PDMP PDMP Reviewed: Not Reviewed Attestations 2 Medical Necessity Statement*: Patient requires ongoing hospitalization for steroids, IV antibiotics, psychiatric care, and supportive care. Coding Level of Care Code Acute Code for [facility] Diagnoses Acute alcoholic hepatitis K70.10 Alcohol withdrawal F10.939 Encephalopathy, hepatic K76.82
[2024-07-09 11:40] VITALS: BP 107/72; PULSE 70; RESP 16; TEMP 37.1; O2SAT 91
[2024-07-09] MEDS: cefTRIAXone 1,000 mg SDV 1000 MG IVP (12:11)
[2024-07-09] MEDS: methylPREDNISolone sod succ 40 mg/mL INJ IVP (12:11)
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
[2024-07-09 15:17] VITALS: BP 131/88; PULSE 77; RESP 16; TEMP 36.9; O2SAT 90
[2024-07-09 15:59] LABS: ANA SCREEN, IFA NEGATIVE (NEGATIVE)
[2024-07-09] MEDS: zolpidem 5 mg Tablet PO (20:28)
[2024-07-09 20:53] VITALS: BP 135/94; PULSE 73; RESP 16; TEMP 37; O2SAT 93
[2024-07-10] VITALS: BP 129/91; PULSE 73; RESP 18; O2SAT 92
[2024-07-10 05:24] LABS: Alanine Aminotransferase 71 U/L (0-41); Albumin Level 2.8 g/dL (3.5-5.2); Alkaline Phosphatase 171 U/L (40-130); Anion Gap 11.8 (5-19); Aspartate Amino Transferase 131 U/L (0-40); Blood Urea Nitrogen 10 mg/dL (8-23); Calcium 8.2 mg/dL (8.5-10.5); Carbon Dioxide 25 mmol/L (22-29); Chloride 106 mmol/L (98-107); Creatinine Clr Calc Pharmacy 160.3001; Globulin 2.3 g/dL (1.3-4.6); Glomerular Filtration Rate 136.5 mL/min (90-130); Glucose 97 mg/dL (65-115); Osmolality Calculated 287 mOsm/kg (285-295); Potassium 3.8 mmol/L (3.5-5.1); Sodium 139 mmol/L (136-145); Total Protein 5.1 g/dL (6.6-8.7)
[2024-07-10 05:31] VITALS: BP 142/95; PULSE 72; RESP 16; TEMP 37.3; O2SAT 95
[2024-07-10 05:36] LABS: Total Bilirubin 8.7 mg/dL (0.15-1.2)
[2024-07-10 07:31] VITALS: BP 142/96; PULSE 79; RESP 15; TEMP 37.2; O2SAT 94
[2024-07-10] MEDS: escitalopram 10 mg Tablet PO (07:56)
[2024-07-10] MEDS: thiamine 500 MG in sodium chloride 0.9% (100 ml) 100 ML 210 MG IV (07:56)
[2024-07-10] MEDS: multivitamin therapeutic Tablet 1 TAB PO (07:56)
[2024-07-10] MEDS: pantoprazole DR 40 mg Tablet PO (07:56)
[2024-07-10] MEDS: lactulose oral liq 20 gm/30 mL UDC 10 GM PO ×2 (07:56→17:40)
[2024-07-10] MEDS: folic acid 1 mg Tablet PO (07:56)
[2024-07-10 08:36] LABS: THYROID PEROXIDASE ANTIBODIES 1 IU/mL (<9)
[2024-07-10] MEDS: rifaximin 200 mg Tablet 600 MG PO ×2 (09:18→20:10)
--- NOTE | 2024-07-10 11:17 | P.PN_ITS ---
Subjective 2 Subjective: Patient reports mental fog seems resolved. He reports he started this morning because he did not get any sleep overnight due to his roommate snoring all night. He reports the diarrhea is significantly improved after lactulose has been titrated. Denies fevers or chills. Reports good appetite. Denies other new complaints. Medications: Reviewed: Yes Vitals/I&O/Wt Last Vital Signs Temp 99.0 F 07/10/24 07:31 Pulse 79 07/10/24 07:31 Resp 15 07/10/24 07:31 BP 142/96 07/10/24 07:31 Pulse Ox 94 07/10/24 07:31 O2 Del Method Room Air 07/10/24 07:31 07/09/24 07/10/24 07/10/24 22:59 06:59 14:59 Intake Total 450 / 2029 240 / 2270 345 / 345 Balance 450 / 2029 240 / 2270 345 / 345 Weight last 48 hrs Weight 101.015 kg Weight 102.104 kg Physical Exam 2 Narrative: General: Patient is awake. Appears fatigued but pleasant. Conversational. Head: Normocephalic. Icteric sclera. Neck: No JVD. Cardiovascular: RRR. No gallops. No murmurs. Lungs: Clear to auscultation, no use of accessory muscles, no crackles or wheezes. Skin: Diffuse jaundice. No rashes. Abdomen: Normal bowel sounds, abdomen soft and nontender. Extremities: No cyanosis or clubbing. Musculoskeletal: No swollen or erythematous joints. Neurological: Moves all 4 extremities. No myoclonus. Data 07/09/24 05:05 07/10/24 04:42 Micro: Microbiology 07/08/24 00:00 Urine Culture - Final Urine,Voided A&P Assessment and plan (1) Acute alcoholic hepatitis: (2) Alcohol withdrawal: (3) Encephalopathy, hepatic: Plan Severe depression -Psychiatry is following, defer psychiatric medical management to psych -Remains on 96 hour hold -Medically cleared to return to NPU Acute hepatic encephalopathy -Encephalopathy has resolved -Continue rifaximin -Continue maintenance lactulose Alcoholic hepatitis Transaminitis with hyperbilirubinemia -Continue steroids; will rotate to prednisone when off medical unit -Will need to establish with gastroenterology as outpatient after recovery Alcohol use disorder -Continue thiamine, folic acid and vitamin Acute complicated urinary tract infection -Continue ceftriaxone DVT prophylaxis: SCD PDMP PDMP Reviewed: Not Reviewed Attestations 2 Medical Necessity Statement*: Patient is under 96-hour hold which requires ongoing hospitalization until hold is lifted or expires. Coding Level of Care Code Acute Code for [facility] Fwd Diagnoses Acute alcoholic hepatitis K70.10 Alcohol withdrawal F10.939 Encephalopathy, hepatic K76.82
[2024-07-10 11:37] VITALS: BP 144/87; PULSE 93; RESP 16; TEMP 37.4; O2SAT 94
[2024-07-10] MEDS: predniSONE 20 mg Tablet 40 MG PO (12:11)
--- NOTE | 2024-07-10 12:55 | PC.NURSE ---
This nurse called report to NINFA Diaz in NPU at 1255.
--- NOTE | 2024-07-10 13:34 | PC.NURSE ---
Pt safely transported from Med surg to NPU via wheelchair at 1330. Accompanied by this nurse and security.
--- NOTE | 2024-07-10 13:58 | PC.NURSE ---
TRANSFERRED FROM MED-SURG AT 1330 VIA WHEELCHAIR, SITTER AND SECURITY. PT CONTINUES WITH A 96 HOUR THAT IS UP 07/11/24AT 1532. DENIES SI/HI AND AVH AT THIS TIME. RATES ANXIETY 5/10 AND DEPRESSION 6/10. DENIES PAIN. REPORTS 12 BMS TODAY BUT STATES IT SEEMS TO BE SLOWING DOWN. PT SKIN JAUNDICE WITH YELLOWING OF THE EYES NOTED. NEW ORDERS RECEIVED FROM DR. BRISENO TO DISCONTINUE ONE TO ONE OBSERVATION. PT ASSISTED TO ROOM. WATER AND SNACK GIVEN. ALL QUESTIONS ANSWERED AND SUPPORT WAS VOICED.
--- NOTE | 2024-07-10 15:26 | P.NPUPN_ITS ---
Subjective NPU 2 Subjective: 64-year-old male presenting with alcohol withdrawal seen on the medical surgical unit today. The patient had reported some depression. He had reported significant use of alcohol. He had reported that his mood had been considerably worse over the past few months. He had not endorsed any suicidal thoughts at this time. He had reported no thoughts of harming himself. He had no acts of aggression and no episodes of loss of consciousness. He had no alcohol related withdrawal symptoms. Medications: Medication Review Details: Mental Status Exam 2 MSE Comments: He was alert and oriented to person, month, day of week but not year or date. This is an obese white male in hospital scrubs with limited grooming and fair eye contact. No abnormal involuntary motor movements with mild psychomotor retardation noted. He was cooperative with interview today. Speech was productive but limited in spontaneity and normal in volume. Mood remained depressed. Affect appeared restricted in range. Thought process was linear and logical. Thought content: denied homicidal or suicidal ideation. No evidence of delusional thinking currently. He did not appear to be responding to internal stimuli. There was no evidence of delusional thinking. Attention was improved and concentration remained poor. Recent and remote memory were impaired. Insight was poor. Judgment is poor. Impulse control appeared limited. Vitals/I&O/Wt Last Vital Signs Temp 99.3 F 07/10/24 11:37 Pulse 93 07/10/24 11:37 Resp 16 07/10/24 11:37 BP 144/87 07/10/24 11:37 Pulse Ox 94 07/10/24 11:37 O2 Del Method Room Air 07/10/24 13:57 07/10/24 07/10/24 07/10/24 06:59 14:59 22:59 Intake Total 240 / 2270 345 / 345 Balance 240 / 2270 345 / 345 Weight last 48 hrs Weight 101.015 kg Weight 102.104 kg Data NPU 07/09/24 05:05 07/10/24 04:42 A&P Assessment and plan (1) Major depressive disorder, recurrent: (2) Alcohol withdrawal: (3) Encephalopathy, hepatic: (4) Acute alcoholic hepatitis: Plan 64 year old male admitted with alcohol dependence and major depressive disorder with recent hepatic encephalopathy now resolving. Concern exists about Wernicke encephalopathy at this time. #1.? Engage patient in individual milieu and group therapy. #2?? Recommend sober living treatment at the highest level of care to which the patient is willing to commit #3???Increase celexa 20mg daily. #4?? TO-15 minute checks? #5?? Will attempt to gather collateral information PDMP PDMP Reviewed: Not Reviewed Involuntary Hold Information 2 Hold Status: Legal Status: 96 Hour Hold Date/Time Hold Expires: VOLUNTARY Attestations NPU 2 Medical Necessity Statement*: Inpatient hospitalization is medically necessary and the clinically appropriate intervention at this time. We will monitor and make medication changes as indicated. The patient's likely length of stay is 3-5 days. Coding Level of Care Code Acute Code for g Fwd Diagnoses Major depressive disorder, recurrent F33.9 Alcohol withdrawal F10.939 Encephalopathy, hepatic K76.82 Acute alcoholic hepatitis K70.10
[2024-07-10 17:22] VITALS: BP 125/88; PULSE 89; RESP 18; TEMP 36.5; O2SAT 94
[2024-07-10] MEDS: cefdinir 300 MG CAPSULE PO (17:38)
--- NOTE | 2024-07-10 17:50 | PC.NURSE ---
PT REPORTS TO THIS RN THAT HE WAS GIVEN AMBIEN 5 MG LAST NIGHT FOR SLEEP. IT IS DOCUMENTED PT DID RECEIVED THE AMBIEN AT 2057. PT STATES IT WAS NOT EFFECTIVE AND ACTUALLY HAD KEPT HIM UP ALL NIGHT. PT STATES HE HAS ALWAYS HAD DIFFICULTY SLEEPING AND THAT IS ONE OF THE REASONS I SELF MEDICATE SO I CAN SLEEP. DR. BRISENO WAS CALLED AND NOTIFIED OF ABOVE INFORMATION. DR. BRISENO GAVE ORDERS FOR SEROQUEL 100 MG PO AT AND ORDERS THAT IT BE GIVEN AT 1999. PT IS AGREEABLE WITH TRYING MEDICATION. PT ALSO ASKED FOR IBUPROFEN OR TYLENOL FOR MODERATE DISCOMFORT AND PAIN 4/10 IN BACK/NECK/LEGS. DR. BRISENO PREFER THIS RN CONTACT HOSPITALIST FOR FURTHER DIRECTION ON PAIN MANAGEMENT DUE TO HEPATIC ENCEPHALAPATHY. WILL CONTACT MEDICINE. EDUCATION PROVIDED ON NEW ORDERS. VERBALIZED UNDERSTANDING AND SUPPORT VOICED.
--- NOTE | 2024-07-10 18:06 | PC.NURSE ---
DR. MEMBRENO NOTIFIED OF PT PAIN 08/08 IN BACK/NECK AND LEGS. NEW ORDERS RECEIVED TO GIVE PT IBUPROFEN 400 MG PO ONCE. PT REQUEST IT BE GIVEN AT 1900, CLOSER TO BEDTIME SO HE IS ABLE TO REST BETTER PT EDUCATED ON NEW ORDERS. VERBALIZED UNDERSTANDING.
[2024-07-10 20:03] VITALS: BP 144/96; PULSE 108; RESP 18; TEMP 36.9; O2SAT 95
[2024-07-10] MEDS: quetiapine 100 mg Tablet PO (20:10)
[2024-07-10] MEDS: ibuprofen 200 mg Tablet 400 MG PO (20:15)
[2024-07-11 06:00] VITALS: BP 123/77; PULSE 76; RESP 16; TEMP 37.2; O2SAT 97
[2024-07-11] MEDS: folic acid 1 mg Tablet PO (08:22)
[2024-07-11] MEDS: thiamine 100 mg Tablet PO (08:22)
[2024-07-11] MEDS: pantoprazole DR 40 mg Tablet PO (08:22)
[2024-07-11] MEDS: predniSONE 20 mg Tablet 40 MG PO (08:22)
[2024-07-11] MEDS: multivitamin therapeutic Tablet 1 TAB PO (08:22)
[2024-07-11] MEDS: escitalopram 10 mg Tablet 20 MG PO (08:22)
[2024-07-11] MEDS: rifaximin 200 mg Tablet 600 MG PO ×2 (08:23→17:44)
[2024-07-11] MEDS: cefdinir 300 MG CAPSULE PO ×2 (08:23→17:44)
[2024-07-11] MEDS: lactulose oral liq 20 gm/30 mL UDC 10 GM PO (08:23)
[2024-07-11 08:44] LABS: Alanine Aminotransferase 77 U/L (0-41); Albumin Level 2.7 g/dL (3.5-5.2); Alkaline Phosphatase 193 U/L (40-130); Anion Gap 10.7 (5-19); Aspartate Amino Transferase 147 U/L (0-40); Blood Urea Nitrogen 10 mg/dL (8-23); Carbon Dioxide 27 mmol/L (22-29); Chloride 106 mmol/L (98-107); Creatinine Clr Calc Pharmacy 152.0769; Globulin 2.5 g/dL (1.3-4.6); Glomerular Filtration Rate 136.5 mL/min (90-130); Glucose 106 mg/dL (65-115); Osmolality Calculated 289 mOsm/kg (285-295); Potassium 3.7 mmol/L (3.5-5.1); Sodium 140 mmol/L (136-145); Total Protein 5.2 g/dL (6.6-8.7)
[2024-07-11 08:49] LABS: Total Bilirubin 8.7 mg/dL (0.15-1.2)
--- NOTE | 2024-07-11 09:09 | PC.NURSE ---
CRITICAL TOTAL BILLIRUBIN OF 8.[address] MEMBRENO[address] ALSO REPORTED PTS REPORT OF 10-12 LOOSE STOOLS A DAY DUE TO LACTULOSE DOSING. NEW ORDERS RECEIVED TO DECREASE LACTULOSE FROM 10 GRAMS BID TO ONCE DAILY. DR. MEMBRENO TO DISCONTINUE THE PM LACTULOSE DOSE. PT EDUCATED ON NEW ORDERS. VERBALIZED UNDERSTANDING SUPPORT VOICED.
[2024-07-11 14:00] VITALS: BP 123/87; PULSE 72; RESP 18; TEMP 36.9; O2SAT 93
--- NOTE | 2024-07-11 14:57 | P.NPUPN_ITS ---
Subjective NPU 2 Subjective: 64-year-old male presenting with alcohol withdrawal and depression admitted with suicidal ideation with history of alcohol dependence. The patient had reported that he was feeling better. He had been willing to consider intensive outpatient alcohol treatment but did not wish to consider inpatient substance abuse treatment as he had reported previous failures with treatment. He had reported feeling much better. He had been more interactive and less isolative. He had no problems with balance. He continued to complain of multiple bowel movements while taking lactulose on a daily basis. He had reported that he had been feeling depressed but stated that he had felt more optimistic and stated that he was able to return to live with his brother when he was discharged from the hospital. Medications: Medication Review Details: Mental Status Exam 2 MSE Comments: He was alert and oriented to person, month, day of week but not year or date. This is an obese white male in hospital scrubs with limited grooming and fair eye contact. No abnormal involuntary motor movements with mild psychomotor retardation noted. He was cooperative with interview today. Speech was productive but limited in spontaneity and normal in volume. Mood described as better. Affect appeared less restricted in range. Thought process was linear and logical. Thought content: denied homicidal or suicidal ideation. No evidence of delusional thinking currently. He did not appear to be responding to internal stimuli. There was no evidence of delusional thinking. Attention and concentration appeared improved. Recent and remote memory were impaired. Insight was improving. Judgment is fair. Impulse control was improving. Vitals/I&O/Wt Last Vital Signs Temp 98.9 F 07/11/24 06:00 Pulse 76 07/11/24 06:00 Resp 16 07/11/24 06:00 BP 123/77 07/11/24 06:00 Pulse Ox 97 07/11/24 06:00 O2 Del Method Room Air 07/11/24 06:00 Weight last 48 hrs Weight 90.718 kg Weight 101.015 kg Data NPU 07/09/24 05:05 07/11/24 07:58 A&P Assessment and plan (1) Major depressive disorder, recurrent: (2) Alcohol withdrawal: (3) Encephalopathy, hepatic: (4) Acute alcoholic hepatitis: Plan 64 year old male admitted with alcohol dependence and major depressive disorder with recent hepatic encephalopathy now resolving. Concern exists about Wernicke encephalopathy at this time. #1.? Engage patient in individual milieu and group therapy. #2?? Recommend sober living treatment at the highest level of care to which the patient is willing to commit #3???Continue lexapro 20mg daily and seroquel 100mg at night. #4?? TO-15 minute checks? #5?? Will attempt to gather collateral information PDMP PDMP Reviewed: Not Reviewed Involuntary Hold Information 2 Hold Status: Legal Status: 96 Hour Hold Date/Time Hold Expires: VOLUNTARY Attestations NPU 2 Medical Necessity Statement*: Inpatient hospitalization is medically necessary and the clinically appropriate intervention at this time. We will monitor and make medication changes as indicated. The patient's likely length of stay is 1-2 days. Coding Level of Care Code Acute Code for [facility] Fwd Diagnoses Major depressive disorder, recurrent F33.9 Alcohol withdrawal F10.939 Encephalopathy, hepatic K76.82 Acute alcoholic hepatitis K70.10
[2024-07-11] MEDS: quetiapine 100 mg Tablet PO (19:45)
[2024-07-11 19:58] VITALS: BP 149/83; PULSE 88; RESP 18; TEMP 36.6; O2SAT 95
[2024-07-11] MEDS: ibuprofen 600 mg Tablet PO (19:58)
[2024-07-11 23:19] LABS: DNA AB (DS) CRITHIDIA,IFA NEGATIVE (NEGATIVE)
[2024-07-12 04:45] LABS: Smooth Muscle Ab Screen NEGATIVE (NEGATIVE)
[2024-07-12 06:00] VITALS: BP 111/72; PULSE 59; RESP 17; O2SAT 95; BMI 26.4
[2024-07-12] MEDS: escitalopram 10 mg Tablet 20 MG PO (08:50)
[2024-07-12] MEDS: cefdinir 300 MG CAPSULE PO ×2 (08:50→17:30)
[2024-07-12] MEDS: folic acid 1 mg Tablet PO (08:52)
[2024-07-12] MEDS: lactulose oral liq 20 gm/30 mL UDC 5 GM PO (08:53)
[2024-07-12] MEDS: multivitamin therapeutic Tablet 1 TAB PO (08:53)
[2024-07-12] MEDS: predniSONE 20 mg Tablet 40 MG PO (08:53)
[2024-07-12] MEDS: pantoprazole DR 40 mg Tablet PO (08:53)
[2024-07-12] MEDS: rifaximin 200 mg Tablet 600 MG PO ×2 (08:54→17:30)
[2024-07-12] MEDS: thiamine 100 mg Tablet PO (08:54)
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
[2024-07-12 13:43] VITALS: BP 127/84; PULSE 70; RESP 18; TEMP 36.8; O2SAT 95
== END 2024-07-12 18:20 | disposition home or self-care (01) | DRG 897 ==
LOC: ER 22:22 → ER IP 07-02 05:24 → MEDSURG 07-02 08:37 → NP 07-03 18:06 → MEDSURG 07-06 11:52 → NP 07-10 13:29
PROVIDERS: Internal Medicine; Psychiatry & Neurology Psychiatry; Admitting Provider Student in an Organized Health Care Education/Training Program; Emergency Provider Physician Assistant; Visit Provider Internal Medicine
DX: F10.239 Alcohol dependence with withdrawal, unspecified (principal); F33.9 Major depressive disorder, recurrent, unspecified; N39.0 Urinary tract infection, site not specified; K76.82 Hepatic encephalopathy; K70.10 Alcoholic hepatitis without ascites; F43.10 Post-traumatic stress disorder, unspecified; Z62.810 Personal history of physical and sexual abuse in childhood; E66.9 Obesity, unspecified; Z68.26 Body mass index [BMI] 26.0-26.9, adult; E87.6 Hypokalemia
CPT/HCPCS: 36415; 36600; 51798; 70450; 71045; 74177; 80053; 80074; 80306; 80307; 81001; 82140; 82248; 82803; 82977; 83516; 83605; 83690; 83735; 85025; 85049; 85384; 85610; 85730; 86160; 86162; 86235; 86255; 86376; 86705; 86706; 86709; 86803; 87040; 87086; 87340; 93005; 96365; 96366; 96372; 96375; 97150; 97165; 99285; J0696; J2060; J2919; J3411; J3480; J7030; J7512; J9999; P9045

== ENCOUNTER 2024-08-07 14:29 | Emergency (ER) | payer SELFPAY ==
[2024-08-07 14:32] VITALS: BP 145/95; PULSE 103; RESP 19; TEMP 36.7; O2SAT 97; BMI 29.8
--- NOTE | 2024-08-07 14:50 | W.ED.NAVMDI ---
HPI - Nausea/Vomiting/Diarrhea General: Chief complaint: Nausea/Vomiting/Diarrhea Stated complaint: diarhea Time Seen by Provider: 08/07/24 14:33 Source: patient Mode of arrival: ambulatory Limitations: no limitations History of Present Illness: Patient is a 64-year-old male with history of alcoholic cirrhosis presented to the emergency department complaining of diarrhea for the past few weeks. Of note this patient was seen here in the emergency department on 07/01 of this year due to suicidal ideations and episodes of binge drinking, where he was admitted to both medicine and psychiatry. He states after discharge was getting better, though was initially constipated he has now started to have diarrhea and describes these as rodo colored. States that he has intermittent upper abdominal pain as well, and has not had any alcohol since he was discharged from the hospital. He also notes periods of confusion. He denies any fevers, nausea or vomiting. From the hospital was discharged on rifaximin and maintenance lactulose, follow-up was established with gastroenterology on an outpatient basis. Has also been taken thiamine, folic acid and vitamins. No other new medication changes. States his appetite is also been diminished. At this time vitals he is mildly tachycardic, afebrile and the rest of his vitals unremarkable. Notable jaundice as well as scleral icterus. Shortly after my initial exam patient had demonstrated signs of acute altered mental status with nurse getting labs, was unable to state his name, birthdate, the month, or the year. MD elicited complaint: diarrhea and abdominal pain Pertinent past history: alcohol abuse and other (cirrhosis) Onset (ago): week(s) Description of diarrhea: other (rodo-colored) Associated nausea: No Associated abdominal pain: Yes Location of pain: Epigastric, LUQ and RUQ Pain consistency: intermittent Severity: mild Quality: other (fullness) Context: alcohol abuse Associated symtoms: Denies chest pain, diaphoresis, dizziness, dysuria, headache(s), nausea or palpitations Related Data Previous Rx's ?Medication ?Instructions ?Recorded escitalopram oxalate 20 mg tablet 20 mg PO DAILY 30 days #30 tabs 07/12/24 folic acid 1 mg tablet 1 mg PO DAILY #30 tabs 07/12/24 multivitamin with folic acid 400 1 tab PO DAILY 30 days #30 tabs 07/12/24 mcg tablet (Thera) pantoprazole 40 mg tablet,delayed 40 mg PO DAILY 30 days #30 tabs 07/12/24 release quetiapine 100 mg tablet 100 mg PO .at night 30 days #30 07/12/24 tabs thiamine mononitrate (vit B1) 100 100 mg PO DAILY #30 tabs 07/12/24 mg tablet (Vitamin B-1 (mononitrate)) Allergies Allergy/AdvReac Type Severity Reaction Status Date / Time No Known Allergies Allergy Verified 08/07/24 14:36 Review of Systems General: Reports: 10 or more systems reviewed and unremarkable except in HPI and below Const: Denies: fever(s), chills, change in appetite, change in weight or diaphoresis ENMT: Denies: throat pain or hoarseness Card: Denies: chest pain, palpitations or lightheadedness Resp: Denies: dyspnea, productive cough or wheezing GI: Reports: abdominal pain, diarrhea and change in stool character; Denies: nausea, vomiting, hematemesis or hematochezia : Denies: flank pain, difficulty urinating, dysuria, urinary frequency or urinary urgency Musc: Denies: neck pain or back pain Skin/Breast: Denies: rash or new lesions Neuro: Reports: confusion; Denies: headache(s) or dizziness Physical Exam Const: COMMON NORMALS: no limitations, alert and well nourished GENERAL APPEARANCE: cooperative and comfortable ORIENTATION/CONSCIOUSNESS: Yes awake and Yes confused HENMT: COMMON NORMALS: normocephalic, atraumatic, hearing grossly normal bilaterally, external ears normal, Normal external nose present, Normal nasal mucous membranes and turbinates present and moist oral mucous membranes HEAD & SCALP: normocephalic and atraumatic NOSE: Normal external nose present and Normal nasal mucous membranes and turbinates present EXTERNAL EAR: Yes external ears normal Eye: COMMON NORMALS: Equal, round and reactive pupils present, EOMs intact bilaterally and normal visual alves by confrontation SCLERA: scleral abnormal Laterality of scleral abnormality: positive bilateral scleral icterus PUPIL: Yes Equal, round and reactive pupils present Neck/C-Spine: COMMON NORMALS: full ROM, supple, no meningeal signs and no JVD Resp: COMMON NORMALS: normal respiratory effort, No retractions, No use of accessory muscles and clear to auscultation bilaterally AUSCULTATION: clear to auscultation bilaterally, no crackles, no rales, no rhonchi and no wheezes Cardio: COMMON NORMALS: no JVD, regular rhythm, S1 normal heart sound present, S2 normal heart sound present, No gallops present (Cardio), No clicks present (Cardio), No murmurs present (Cardio), No rub (Cardio) and Peripheral pulses 2+ throughout RATE: tachycardic RHYTHM: regular rhythm HEART SOUNDS: S1 normal heart sound present and S2 normal heart sound present PERIPHERAL PULSES: Peripheral pulses 2+ throughout GI: COMMON NORMALS: no masses INSPECTION: Yes abdominal distension and Yes striae AUSCULTATION: Yes normoactive bowel sounds PALPATION: Yes Tenderness to palpation present (GI) Details: LUQ and RUQ RECTAL EXAM: Yes deferred Extremity: COMMON NORMALS: normal to inspection and full ROM NARRATIVE EXTREMITY EXAM: 1+ pitting edema bilaterally Neuro: COMMON NORMALS: moves all extremities, no focal motor deficits and no sensory deficits noted SENSORIUM/ORIENTATION: Yes alert and Yes Orientation impaired MENINGEAL SIGNS: Yes no meningeal signs SPEECH: speech normal MOTOR EXAM: no tremor noted and no asterixis Skin: COMMON NORMALS: no rashes or lesions noted NARRATIVE SKIN EXAM: jaundice GENERAL SKIN EXAM: no rashes or lesions noted Course Vital Signs: Vital signs: Vital Signs Temperature 98.1 F 08/07/24 14:32 Pulse Rate 84 08/07/24 16:06 Respiratory Rate 17 08/07/24 16:06 Blood Pressure 98/81 08/07/24 16:06 Pulse Oximetry 94 08/07/24 16:06 Oxygen Delivery Me thod Room Air 08/07/24 14:32 MDM - Nausea/Vomiting/Diarrhea Medical Decision Making Patient presented for evaluation of diarrhea he has been having for the past 2 weeks. Now was hospitalized in June for acute metabolic cephalopathy related to alcoholic cirrhosis. On exam there was striae noted and some distention of the upper abdomen, where he was tender to palpation. Jaundice and scleral icterus also noted. He did display some signs of confusion at times, there is no asterixis on exam or other concerning neurological findings. CT head did not show any acute abnormalities. CT abdomen showed stable liver cirrhosis. All of his labs seem to be improved from his prior hospitalization, including improved bilirubin and improved LFTs. No significant abnormalities with his electrolytes, coags were normal, and CBC unremarkable. Urinalysis did not show any signs of infection. Overall there is notable improvement from the hospitalization and a referral placed for GI, asked him if he has followed up with them he had received a call he said no so a second referral is being placed. Reviewing hospital and I do see that there was follow-up set up. Patient also notes he is currently awaiting follow-up with newly established PCP. Encouraged him to follow this as well as to continue taking medications he was prescribed from the hospital, including lactulose and rifaximin. Did tell him to return if his symptoms worsen, he is alert and oriented x 4 at discharge. Did discuss case with Dr. Taylor who agrees with disposition. Lab Data 08/07/24 14:49 08/07/24 14:[address] 08/07/24 14:52 IMPRESSION: No acute intracranial abnormality. Abdomen/Pelvis CT 08/07/24 16:06 IMPRESSION: 1. Liver cirrhosis with small volume ascites in the abdomen/pelvis. 2. 1.6 cm left adrenal nodule. COMMENTS: Consistent with the [employer]'s Incidental Findings Committee white paper (J Am Noa Radiol 2018): Any incidental renal lesion less than 1 cm or classified as too small to characterize, or any incidental cystic renal lesion characterized as simple-appearing, is likely benign. No follow-up imaging is recommended for these lesions per consensus recommendations based on imaging criteria. Laboratory Results WBC 8.50 10^3/uL (3.29-11.43) 08/07/24 14:49 RBC 4.41 10^6/uL (3.85-5.65) 08/07/24 14:49 Hgb 14.70 g/dL (11.27-16.99) 08/07/24 14:49 Hct 45.5 % (37-53) 08/07/24 14:49 MCV 103.2 fl (82-101) H 08/07/24 14:49 MCH 33.3 pg (27-33) H 08/07/24 14:49 MCHC 32.3 g/dL (30-55) 08/07/24 14:49 RDW 13.7 % (12.1-15.1) 08/07/24 14:49 Plt Count 251 10^3/cmm (157-399) 08/07/24 14:49 MPV 12.5 fL (7.4-10.4) H 08/07/24 14:49 Neut % (Auto) 68.7 % 08/07/24 14:49 Lymph % (Auto) 18.1 % 08/07/24 14:49 [place] % (Auto) 11.2 % 08/07/24 14:49 Eos % (Auto) 0.9 % 08/07/24 14:49 Baso % (Auto) 0.9 % 08/07/24 14:49 Neut # (Auto) 5.83 10^3/uL (1.8-7.7) 08/07/24 14:49 Lymph # (Auto) 1.5 10^3/uL (0.8-4.8) 08/07/24 14:49 [place] # (Auto) 1.0 10^3/uL (0.2-0.9) H 08/07/24 14:49 Eos # (Auto) 0.1 10^3/uL (0.0-0.8) 08/07/24 14:49 Baso # (Auto) 0.1 10^3/uL (0.0-0.1) 08/07/24 14:49 Nucleated RBC % (auto) 0 % 08/07/24 14:49 Nucleated RBCs # 0.0 /100WBC 08/07/24 14:49 PT 14.90 SECONDS (12.1-14.9) 08/07/24 14:49 INR 1.09 (0.8-1.2) 08/07/24 14:49 APTT 32.9 SECONDS (23.9-36.7) 08/07/24 14:49 Sodium 141 mmol/L (136-145) 08/07/24 14:49 Potassium 3.2 mmol/L (3.5-5.1) L 08/07/24 14:49 Chloride 103 mmol/L (98-107) 08/07/24 14:49 Carbon Dioxide 25 mmol/L (22-29) 08/07/24 14:49 Anion Gap 16.2 (5-19) 08/07/24 14:49 BUN 6 mg/dL (8-23) L 08/07/24 14:49 Creatinine 0.6 mg/dL (0.7-1.2) L 08/07/24 14:49 GFR Calculation 136.5 mL/min (90-130) H 08/07/24 14:49 Glucose 110 mg/dL (65-115) 08/07/24 14:49 Calculated Osmolality 290 mOsm/kg (285-295) 08/07/24 14:49 Lactic Acid 2.2 mmol/L (0.5-2.2) 08/07/24 14:49 Calcium 8.8 mg/dL (8.5-10.5) 08/07/24 14:49 Magnesium 2.1 mg/dL (1.7-2.3) 08/07/24 14:49 Total Bilirubin 5.9 mg/dL (0.15-1.2) H 08/07/24 14:49 AST 92 U/L (0-40) H 08/07/24 14:49 ALT 35 U/L (0-41) 08/07/24 14:49 Alkaline Phosphatase 162 U/L (40-130) H 08/07/24 14:49 Ammonia 35 umol/L (16-60) 08/07/24 14:49 Total Protein 6.4 g/dL (6.6-8.7) L 08/07/24 14:49 Albumin 3.3 g/dL (3.5-5.2) L 08/07/24 14:49 Globulin 3.1 g/dL (1.3-4.6) 08/07/24 14:49 Urine Color Other (Yellow) A 08/07/24 15:30 Urine Appearance Slightly cloudy (CLEAR) 08/07/24 15:30 Urine pH 5 (5-7) 08/07/24 15:30 Ur Specific [place] 1.030 (1.005-1.030) 08/07/24 15:30 Urine Protein Not Reportable 08/07/24 15:30 Urine Glucose (UA) Not Reportable 08/07/24 15:30 Urine Ketones Not Reportable 08/07/24 15:30 Urine Blood Not Reportable 08/07/24 15:30 Urine Nitrate Not Reportable 08/07/24 15:30 Urine Bilirubin Not Reportable 08/07/24 15:30 Urine Urobilinogen Not Reportable 08/07/24 15:30 Ur Leukocyte Esterase Not Reportable 08/07/24 15:30 Urine RBC 3-5 /hpf (0-2) 08/07/24 15:30 Urine WBC 6-10 /hpf (0-5) 08/07/24 15:30 Ur Squamous Epith Cells 6-10 /hpf (0-5) 08/07/24 15:30 Amorphous Sediment Not Reportable 08/07/24 15:30 Urine Bacteria None seen /hpf (NONE) 08/07/24 15:30 Hyaline Casts 36.39 /lpf 08/07/24 15:30 Fine Granular Casts 5-10 /lpf H 08/07/24 15:30 Urine Mucus 2+ /hpf 08/07/24 15:30 All radiology interpretation(s) finalized by discharge Discharge Plan Discharge Patient Disposition: Home Clinical Impression: ALC (alcoholic liver cirrhosis) Condition: Stable Prescriptions: No Action folic acid 1 mg Tablet 1 mg PO DAILY Qty: 30 0RF thiamine mononitrate (vit B1) [Vitamin B-1 (mononitrate)] 100 mg Tablet 100 mg PO DAILY Qty: 30 0RF quetiapine 100 mg Tablet 100 mg PO .at night 30 Days Qty: 30 1RF pantoprazole 40 mg Tablet,Delayed Release (Dr/Ec) 40 mg PO DAILY 30 Days Qty: 30 1RF multivitamin with folic acid [Thera] 400 mcg Tablet 1 tab PO DAILY 30 Days Qty: 30 1RF escitalopram oxalate 20 mg tablet 20 mg PO DAILY 30 Days Qty: 30 1RF Discharge Orders: Discharge ED (Routine); Ordered 08/07/24 Ordered By: Keaton Alfonso Patient Instructions: Cirrhosis of the Liver (ED) Activity Restrictions/Additional Instructions: Continue taking your prescribed medications at home, specifically lactulose and rifaximin. Follow-up with GI as we discussed. Please return if you have any worsening pain, worsening confusion, persistent vomiting or diarrhea. Follow-up with regular doctor. Print Language: Estonian Coding Level of Care Code ED Pacs Administrator for Atif Mendes
--- NOTE | 2024-08-07 14:52 | CTR_ITS ---
PROCEDURE INFORMATION: Exam: CT Head Without Contrast Exam date and time: 08/07/2024 3:39 PM Age: 64 years old Clinical indication: Altered mental status/memory loss; Additional info: Confusion/hx of alcholic liver cirrhosis TECHNIQUE: Imaging protocol: Computed tomography of the head without contrast. Radiation optimization: All CT scans at this facility use at least one of these dose optimization techniques: automated exposure control; mA and/or kV adjustment per patient size (includes targeted exams where dose is matched to clinical indication); or iterative reconstruction. COMPARISON: CT head wo con* [id number] 07/01/2024 2:30 PM RADIATION DOSE METRICS: Total DLP (mGy-cm): 1178.48 FINDINGS: Brain: No hemorrhage. No edema. Moderate diffuse cerebral atrophy and mild sequela of chronic small vessel ischemic disease. No mass effect. Cerebral ventricles: No ventriculomegaly. Paranasal sinuses: Visualized sinuses are unremarkable. No fluid levels. Mastoid air cells: Visualized mastoid air cells are well aerated. Bones: Unremarkable. No acute fracture. Soft tissues: Unremarkable. CT/CT head wo con* [id number] IMPRESSION: No acute intracranial abnormality.
[2024-08-07 14:57] LABS: Basophils # 0.1 10^3/uL (0.0-0.1); Basophils % 0.9 %; Eosinophils # 0.1 10^3/uL (0.0-0.8); Eosinophils % 0.9 %; Hematocrit 45.5 % (37-53); Lymphocytes # 1.5 10^3/uL (0.8-4.8); Lymphocytes % 18.1 %; Mean Corpuscular HGB Conc 32.3 g/dL (30-55); Mean Corpuscular Hemoglobin 33.3 pg (27-33); Mean Corpuscular Volume 103.2 fl (82-101); Mean Platelet Volume 12.5 fL (7.4-10.4); Monocytes % 11.2 %; Neutrophils # 5.83 10^3/uL (1.8-7.7); Neutrophils % 68.7 %; Nucleated Red Blood Cells % 0 %; Platelet Count 251 10^3/cmm (157-399); Red Blood Count 4.41 10^6/uL (3.85-5.65); Red Cell Distribution Width 13.7 % (12.1-15.1)
[2024-08-07 15:15] LABS: INR 1.09 (0.8-1.2)
[2024-08-07 15:16] LABS: Partial Thromboplastin Time 32.9 SECONDS (23.9-36.7)
[2024-08-07 15:19] LABS: Ammonia 35 umol/L (16-60)
[2024-08-07 15:20] LABS: Alanine Aminotransferase 35 U/L (0-41); Albumin Level 3.3 g/dL (3.5-5.2); Alkaline Phosphatase 162 U/L (40-130); Aspartate Amino Transferase 92 U/L (0-40); Blood Urea Nitrogen 6 mg/dL (8-23); Calcium 8.8 mg/dL (8.5-10.5); Carbon Dioxide 25 mmol/L (22-29); Chloride 103 mmol/L (98-107); Creatinine Clr Calc Pharmacy 156.1372; Globulin 3.1 g/dL (1.3-4.6); Glomerular Filtration Rate 136.5 mL/min (90-130); Glucose 110 mg/dL (65-115); Magnesium 2.1 mg/dL (1.7-2.3); Osmolality Calculated 290 mOsm/kg (285-295); Sodium 141 mmol/L (136-145); Total Bilirubin 5.9 mg/dL (0.15-1.2); Total Protein 6.4 g/dL (6.6-8.7)
[2024-08-07 15:24] LABS: Anion Gap 16.2 (5-19); Potassium 3.2 mmol/L (3.5-5.1)
[2024-08-07 15:45] LABS: Add Urine Microscopic? NO
[2024-08-07] MEDS: iohexol 350 mg/mL 500 mL Btl (per mL) IV (15:45)
[2024-08-07 15:52] LABS: Bacteria Urine None Seen /hpf; Hyaline Casts Urine 36.39 /lpf
[2024-08-07 16:06] VITALS: BP 98/81; PULSE 84; RESP 17; O2SAT 94
--- NOTE | 2024-08-07 16:06 | CTR_ITS ---
PROCEDURE INFORMATION: Exam: CT Abdomen And Pelvis With Contrast Exam date and time: 08/07/2024 3:55 PM Age: 64 years old Clinical indication: Abdominal pain; Localized; Upper; Additional info: Upper abd pain, HX of cirrhosis, original scan canceled and reordered. TECHNIQUE: Imaging protocol: Computed tomography of the abdomen and pelvis with contrast. Radiation optimization: All CT scans at this facility use at least one of these dose optimization techniques: automated exposure control; mA and/or kV adjustment per patient size (includes targeted exams where dose is matched to clinical indication); or iterative reconstruction. Contrast material: OMNI 350; Contrast volume: 100 ml; Contrast route: INTRAVENOUS (IV); COMPARISON: CT abdomen pelvis w con* [id number] 08/07/2024 3:41 PM RADIATION DOSE METRICS: Total DLP (mGy-cm): 906.85 FINDINGS: Liver: Mildly nodular cirrhotic liver morphology. No mass. Gallbladder and biliary ducts: Normal. No calcified stones. No ductal dilation. Pancreas: Normal. No ductal dilation. Spleen: Normal. No splenomegaly. Adrenal glands: 1.6 cm left adrenal nodule. Kidneys and ureters: 3 cm simple cyst noted in the left kidney. No hydronephrosis. Stomach and bowel: Unremarkable. No obstruction. No mucosal thickening. Appendix: No evidence of appendicitis. Intraperitoneal space: Small volume ascites in the abdomen/pelvis. No free air. Vasculature: Unremarkable. No abdominal aortic aneurysm. Lymph nodes: Unremarkable. No enlarged lymph nodes. Urinary bladder: Under distended bladder. Reproductive: Unremarkable as visualized. Bones/joints: No acute fracture. Soft tissues: Unremarkable. CT/CT abdomen pelvis w con* [id number] IMPRESSION: 1. Liver cirrhosis with small volume ascites in the abdomen/pelvis. 2. 1.6 cm left adrenal nodule. COMMENTS: Consistent with the [employer] [employer]'s Incidental Findings Committee white paper (J Am Noa Radiol 2018): Any incidental renal lesion less than 1 cm or classified as too small to characterize, or any incidental cystic renal lesion characterized as simple-appearing, is likely benign. No follow-up imaging is recommended for these lesions per consensus recommendations based on imaging criteria.
[2024-08-07 16:09] LABS: UA Slide Review UA Slide Review Perf; Urine Appearance Slightly Cloudy (CLEAR); Urine Color Other (Yellow); pH Urine 5 (5-7)
[2024-08-07 16:12] LABS: Add Urine Culture? No; Mucus Urine 2+ /hpf
[2024-08-07 16:13] LABS: Charge for UA Resulting for Rev
[2024-08-07 16:21] LABS: Lactic Sepsis W/Reflex 2.2 mmol/L (0.5-2.2)
[2024-08-07 16:36] LABS: Lipase 39 U/L (13-60)
[2024-08-07 16:40] LABS: Reflex Lactate Order REFLEX LACTIC ORDERD
[2024-08-07 16:58] VITALS: BP 121/99; PULSE 82; O2SAT 92
== END 2024-08-07 16:59 | disposition home or self-care (01) ==
PROVIDERS: Emergency Provider Physician Assistant
DX: K70.30 Alcoholic cirrhosis of liver without ascites (principal)
CPT/HCPCS: 36415; 70450; 74177; 80053; 81003; 82140; 83605; 83690; 83735; 85025; 85610; 85730; 87040; 99285

== ENCOUNTER 2024-08-11 20:56 | Emergency (ER) | payer SELFPAY ==
[2024-08-11 21:26] VITALS: BP 124/85; PULSE 131; RESP 20; TEMP 36.6; O2SAT 94; BMI 27.1
[2024-08-11 21:28] LABS: Basophils # 0.1 10^3/uL (0.0-0.1); Basophils % 1.7 %; Eosinophils # 0.1 10^3/uL (0.0-0.8); Eosinophils % 0.9 %; Hematocrit 43.8 % (37-53); Lymphocytes # 1.1 10^3/uL (0.8-4.8); Lymphocytes % 15.8 %; Mean Corpuscular HGB Conc 32.9 g/dL (30-55); Mean Corpuscular Hemoglobin 33.4 pg (27-33); Mean Corpuscular Volume 101.6 fl (82-101); Mean Platelet Volume 12.1 fL (7.4-10.4); Monocytes # 0.7 10^3/uL (0.2-0.9); Monocytes % 10.1 %; Neutrophils # 4.74 10^3/uL (1.8-7.7); Neutrophils % 71.2 %; Nucleated Red Blood Cells % 0 %; Platelet Count 291 10^3/cmm (157-399); Red Blood Count 4.31 10^6/uL (3.85-5.65); Red Cell Distribution Width 13.5 % (12.1-15.1); White Blood Count 6.65 10^3/uL (3.29-11.43)
[2024-08-11 21:35] LABS: INR 1.14 (0.8-1.2)
[2024-08-11 21:41] LABS: Alanine Aminotransferase 26 U/L (0-41); Albumin Level 3.3 g/dL (3.5-5.2); Alkaline Phosphatase 150 U/L (40-130); Anion Gap 18.4 (5-19); Aspartate Amino Transferase 70 U/L (0-40); Blood Urea Nitrogen 5 mg/dL (8-23); Calcium 8.5 mg/dL (8.5-10.5); Carbon Dioxide 20 mmol/L (22-29); Chloride 105 mmol/L (98-107); Creatinine Clr Calc Pharmacy 112.1889; Globulin 2.8 g/dL (1.3-4.6); Glucose 145 mg/dL (65-115); Lipase 47 U/L (13-60); Osmolality Calculated 290 mOsm/kg (285-295); Potassium 3.4 mmol/L (3.5-5.1); Sodium 140 mmol/L (136-145); Total Bilirubin 4.9 mg/dL (0.15-1.2); Total Protein 6.1 g/dL (6.6-8.7)
[2024-08-11 23:17] VITALS: BP 109/87; PULSE 114; RESP 18; O2SAT 96
--- NOTE | 2024-08-11 23:23 | W.ED.NAVMDI ---
HPI - Nausea/Vomiting/Diarrhea General: Chief complaint: Nausea/Vomiting/Diarrhea Stated complaint: abd pain D/n Time Seen by Provider: 08/11/24 22:05 History of Present Illness: 64-year-old male with a history of cirrhosis/chronic alcoholic liver disease. He presents with generalized abdominal pain, multiple episodes of diarrhea over the past couple of weeks. He says the diarrhea is getting worse. It has not responded to the antidiarrheals. He cannot make it to the bathroom in his home he says. He constantly is having to clean up feces, from episodes of fecal incontinence related to urgency. He denies significant fever. Related Data Previous Rx's ?Medication ?Instructions ?Recorded escitalopram oxalate 20 mg tablet 20 mg PO DAILY 30 days #30 tabs 07/12/24 folic acid 1 mg tablet 1 mg PO DAILY #30 tabs 07/12/24 multivitamin with folic acid 400 1 tab PO DAILY 30 days #30 tabs 07/12/24 mcg tablet (Thera) pantoprazole 40 mg tablet,delayed 40 mg PO DAILY 30 days #30 tabs 07/12/24 release quetiapine 100 mg tablet 100 mg PO .at night 30 days #30 07/12/24 tabs thiamine mononitrate (vit B1) 100 100 mg PO DAILY #30 tabs 07/12/24 mg tablet (Vitamin B-1 (mononitrate)) Allergies Allergy/AdvReac Type Severity Reaction Status Date / Time No Known Allergies Allergy Verified 08/07/24 14:36 Physical Exam Const: GENERAL APPEARANCE: cooperative and disheveled; not frail appearing HENMT: COMMON NORMALS: normocephalic, atraumatic and Normal external nose present HEAD & SCALP: normocephalic and atraumatic FACE & SINUS: normal facial exam and face symmetric NOSE: Normal external nose present Eye: COMMON NORMALS: Equal, round and reactive pupils present and EOMs intact bilaterally SCLERA: scleral abnormal Laterality of scleral abnormality: positive bilateral scleral icterus PUPIL: Yes Equal, round and reactive pupils present Neck/C-Spine: GENERAL: Yes trachea midline Chest: CHEST: Yes Symmetrical chest wall rise Resp: COMMON NORMALS: normal respiratory effort, No retractions, No use of accessory muscles and clear to auscultation bilaterally AUSCULTATION: clear to auscultation bilaterally Cardio: COMMON NORMALS: regular rate and regular rhythm RATE: regular rate RHYTHM: regular rhythm GI: COMMON NORMALS: Normal to inspection, nondistended, normoactive bowel sounds present Extremity: COMMON NORMALS: no pedal edema Neuro: MELINA COMA SCALE: document GCS findings [place] coma scale eye opening: Spontaneous [place] coma scale verbal response: Orientated Melina coma scale motor response: Obey commands Melina coma scale total score: 15 SENSORY EXAM: Yes extremities (intact) Psych: COMMON NORMALS: speech normal SPEECH: Yes normal speech Skin: GENERAL SKIN EXAM: jaundice Course Vital Signs: Vital signs: Vital Signs Temperature 97.8 F 08/11/24 21:26 Pulse Rate 89 08/12/24 03:17 Respiratory Rate 16 08/12/24 00:56 Blood Pressure 115/90 08/12/24 03:17 Pulse Oximetry 97 08/12/24 03:17 Oxygen Delivery Me thod Room Air 08/12/24 01:12 MDM - Nausea/Vomiting/Diarrhea Medical Decision Making Patient is chronically jaundiced with scleral icterus. His bilirubin is 4.9 which is down from prior. His platelet count is normal. His INR is 1.14. His white blood cell count is 6.7. Bicarbonate is 20. Potassium 3.4. CT scan is pending. This is the second time he has been seen for this complaint. CT scan is nonacute. Patient's vitals are stable. He is no longer tachycardic. He responded well to fluid bolus. With unremarkable labs, save chronic liver findings, he will be allowed discharge home. As he is having trouble making it to the bathroom due to diarrhea fecal incontinence, he will be prescribed a bedside commode. He is encouraged to follow-up with his PCP. Lab Data 08/11/24 21:15 08/11/24 21:15 Radiology Impressions Abdomen/Pelvis CT 08/11/24 23:55 IMPRESSION: 1. Probable cirrhosis with diffuse hepatic steatosis. 2. Stable indeterminate 1.6 cm left adrenal nodule. 3. Stable [id number] ascites. Laboratory Results WBC 6.65 10^3/uL (3.29-11.43) 08/11/24 21:15 RBC 4.31 10^6/uL (3.85-5.65) 08/11/24 21:15 Hgb 14.40 g/dL (11.27-16.99) 08/11/24 21:15 Hct 43.8 % (37-53) 08/11/24 21:15 MCV 101.6 fl (82-101) H 08/11/24 21:15 MCH 33.4 pg (27-33) H 08/11/24 21:15 MCHC 32.9 g/dL (30-55) 08/11/24 21:15 RDW 13.5 % (12.1-15.1) 08/11/24 21:15 Plt Count 291 10^3/cmm (157-399) 08/11/24 21:15 MPV 12.1 fL (7.4-10.4) H 08/11/24 21:15 Neut % (Auto) 71.2 % 08/11/24 21:15 Lymph % (Auto) 15.8 % 08/11/24 21:15 [place] % (Auto) 10.1 % 08/11/24 21:15 Eos % (Auto) 0.9 % 08/11/24 21:15 Baso % (Auto) 1.7 % 08/11/24 21:15 Neut # (Auto) 4.74 10^3/uL (1.8-7.7) 08/11/24 21:15 Lymph # (Auto) 1.1 10^3/uL (0.8-4.8) 08/11/24 21:15 [place] # (Auto) 0.7 10^3/uL (0.2-0.9) 08/11/24 21:15 Eos # (Auto) 0.1 10^3/uL (0.0-0.8) 08/11/24 21:15 Baso # (Auto) 0.1 10^3/uL (0.0-0.1) 08/11/24 21:15 Nucleated RBC % (auto) 0 % 08/11/24 21:15 Nucleated RBCs # 0.0 /100WBC 08/11/24 21:15 PT 15.40 SECONDS (12.1-14.9) H 08/11/24 21:15 INR 1.14 (0.8-1.2) 08/11/24 21:15 Sodium 140 mmol/L (136-145) 08/11/24 21:15 Potassium 3.4 mmol/L (3.5-5.1) L 08/11/24 21:15 Chloride 105 mmol/L (98-107) 08/11/24 21:15 Carbon Dioxide 20 mmol/L (22-29) L 08/11/24 21:15 Anion Gap 18.4 (5-19) 08/11/24 21:15 BUN 5 mg/dL (8-23) L 08/11/24 21:15 Creatinine 0.8 mg/dL (0.7-1.2) 08/11/24 21:15 GFR Calculation 98.0 mL/min (90-130) 08/11/24 21:15 Glucose 145 mg/dL (65-115) H 08/11/24 21:15 Calculated Osmolality 290 mOsm/kg (285-295) 08/11/24 21:15 Calcium 8.5 mg/dL (8.5-10.5) 08/11/24 21:15 Total Bilirubin 4.9 mg/dL (0.15-1.2) H 08/11/24 21:15 AST 70 U/L (0-40) H 08/11/24 21:15 ALT 26 U/L (0-41) 08/11/24 21:15 Alkaline Phosphatase 150 U/L (40-130) H 08/11/24 21:15 Total Protein 6.1 g/dL (6.6-8.7) L 08/11/24 21:15 Albumin 3.3 g/dL (3.5-5.2) L 08/11/24 21:15 Globulin 2.8 g/dL (1.3-4.6) 08/11/24 21:15 Lipase 47 U/L (13-60) 08/11/24 21:15 Ethyl Alcohol < 10 mg/dL (0-10) 08/11/24 21:15 All radiology interpretation(s) finalized by discharge Discharge Plan Discharge Patient Disposition: Home Clinical Impression: Dehydration, Acute dehydration ALC (alcoholic liver cirrhosis) Qualifiers: Ascites presence: with ascites Qualified Code(s): K70.31 - Alcoholic cirrhosis of liver with ascites Condition: Stable Prescriptions: No Action folic acid 1 mg Tablet 1 mg PO DAILY Qty: 30 0RF thiamine mononitrate (vit B1) [Vitamin B-1 (mononitrate)] 100 mg Tablet 100 mg PO DAILY Qty: 30 0RF quetiapine 100 mg Tablet 100 mg PO .at night 30 Days Qty: 30 1RF pantoprazole 40 mg Tablet,Delayed Release (Dr/Ec) 40 mg PO DAILY 30 Days Qty: 30 1RF multivitamin with folic acid [Thera] 400 mcg Tablet 1 tab PO DAILY 30 Days Qty: 30 1RF escitalopram oxalate 20 mg tablet 20 mg PO DAILY 30 Days Qty: 30 1RF Discharge Orders: Discharge ED (Routine); Ordered 08/12/24 Ordered By: Remy Vicente Patient Instructions: Diarrhea - Adult, Cirrhosis of the Liver (ED), Opioid Safety, Pain Management Activity Restrictions/Additional Instructions: Increasing your fiber in your diet can help with diarrhea. You have been prescribed a bedside commode, which will help with urgency problems. Follow-up with your doctor regarding your symptoms. Call them later this morning and let them know you are here. Print Language: Kiswahili Coding Level of Care Code ED Harvest Worker [employer] for Atif Mendes
[2024-08-11 23:37] LABS: Alcohol Level < 10 mg/dL (0-10)
[2024-08-11] MEDS: ketorolac 30 mg/mL INJ 15 MG IVP (23:45)
[2024-08-11] MEDS: ondansetron 2 mg/ML SDV 2 mL 4 MG IVP (23:45)
[2024-08-11] MEDS: diphenoxylate/atropine Tablet 2 TAB PO (23:45)
[2024-08-11] MEDS: sodium chloride 0.9% 1,000 ML 999 ML IV (23:45)
--- NOTE | 2024-08-11 23:55 | CTR_ITS ---
PROCEDURE INFORMATION: Exam: CT Abdomen And Pelvis With Contrast Exam date and time: 08/12/2024 1:35 AM Age: 64 years old Clinical indication: Nausea and vomiting; Abdominal pain; Generalized; Diffuse abd pain with n/v/d. History of cirrhosis. ; Additional info: Abdominal pain diarrhea TECHNIQUE: Imaging protocol: Computed tomography of the abdomen and pelvis with contrast. Radiation optimization: All CT scans at this facility use at least one of these dose optimization techniques: automated exposure control; mA and/or kV adjustment per patient size (includes targeted exams where dose is matched to clinical indication); or iterative reconstruction. Contrast material: OMNI 350; Contrast volume: 100 ml; Contrast route: INTRAVENOUS (IV); COMPARISON: CT abdomen pelvis w con* [id number] 08/07/2024 3:55 PM RADIATION DOSE METRICS: Total DLP (mGy-cm): 726.53 FINDINGS: Liver: The liver has slightly nodular contour and demonstrates diffuse hypoattenuation without focal lesion. Gallbladder and biliary ducts: Normal. No calcified stones. No ductal dilation. Pancreas: Normal. No ductal dilation. Spleen: Normal. No splenomegaly. Adrenal glands: Stable indeterminate 1.6 cm left adrenal nodule. Kidneys and ureters: Stable left renal cysts measuring up to 2.5 cm. Stomach and bowel: Unremarkable. No obstruction. No mucosal thickening. Appendix: No evidence of appendicitis. Intraperitoneal space: Stable [id number]-wy-[id number] ascites. Vasculature: Unremarkable. No abdominal aortic aneurysm. Lymph nodes: Unremarkable. No enlarged lymph nodes. Urinary bladder: Unremarkable as visualized. Reproductive: Unremarkable as visualized. Bones/joints: Unremarkable. No acute fracture. Soft tissues: Unremarkable. CT/CT abdomen pelvis w con* [id number] IMPRESSION: 1. Probable cirrhosis with diffuse hepatic steatosis. 2. Stable indeterminate 1.6 cm left adrenal nodule. 3. Stable [id number] ascites.
[2024-08-12] VITALS: BP 101/78; PULSE 89; RESP 16; O2SAT 95
[2024-08-12 00:56] VITALS: BP 113/96; PULSE 94; RESP 16; O2SAT 96
[2024-08-12] MEDS: ondansetron 2 mg/ML SDV 2 mL 4 MG IVP (01:10)
[2024-08-12 01:12] VITALS: BP 109/90; PULSE 85; O2SAT 96
[2024-08-12] MEDS: iohexol 350 mg/mL 500 mL Btl (per mL) IV (01:36)
[2024-08-12] MEDS: lidocaine 2% viscous 15 ML, aluminum-mag hydrox-simethicon 30 ML, sucralfate oral liq 1 GM PO (02:43)
[2024-08-12 02:45] VITALS: BP 119/94; PULSE 96; O2SAT 96
[2024-08-12 03:17] VITALS: BP 115/90; PULSE 89; O2SAT 97
[2024-08-12 06:01] VITALS: BP 125/101; PULSE 88; O2SAT 95
== END 2024-08-12 06:02 | disposition home or self-care (01) ==
PROVIDERS: Emergency Medicine; Emergency Provider Emergency Medicine
DX: E86.0 Dehydration (principal); K70.31 Alcoholic cirrhosis of liver with ascites
CPT/HCPCS: 36415; 74177; 80053; 80307; 83690; 85025; 85610; 96361; 96374; 96375; 96376; 99285; J1885; J2405; J7030; J9999

== ENCOUNTER 2024-08-12 06:00 | Emergency (ER) | payer SELFPAY ==
[2024-08-12 06:10] VITALS: BMI 27.1
[2024-08-12 06:13] VITALS: BP 153/112; PULSE 111; RESP 24; TEMP 36.8; O2SAT 94
--- NOTE | 2024-08-12 06:34 | ED_ITS ---
HPI - Nausea/Vomiting/Diarrhea 2 General: Chief complaint: Nausea/Vomiting/Diarrhea Stated complaint: vomitting Time Seen by Provider: 08/12/24 06:28 History of Present Illness: 64-year-old male with history of alcohol ism states that he quit drinking several weeks ago. He complains of chronic diarrhea since he stopped drinking. He was hospitalized with acute alcoholic hepatitis at the beginning of June. He is not on lactulose. He was seen in the emergency room on 08/07/2024 and then last night as well. He was here approximately 9 hours overnight was discharged from the ER around 6 AM this morning within a few minutes he reregistered to be seen. During the time he was here overnight he did not have any diarrhea or vomiting that the staff witnessed. He denies any hematochezia or melena. While his labs did show some abnormalities generally they are improving specifically his liver enzymes and his bilirubin have been trending improved. His urine did not show any significant abnormalities. He did not have any alcohol in his system when he was seen overnight. He denies any Crohn's or ulcerative colitis. He has not had hematochezia melena hematemesis or coffee-ground emesis no fever sweats or chills. He states he has diarrhea so bad that he has a difficult time making it to the restroom at home and has had several episodes of fecal incontinence. He has not had any back pain or pain radiating down his legs. He has not recently been on the antibiotics. He is complaining of some upper abdominal pain that he relates to being in the liver and spleen. He is mildly tachycardic when he first checked send reviewing the notes from the previous visit he had a little more noticeable tachycardia initially when he checked in but then his heart rate remained normal for most of that documented vitals for the visit overnight. Associated nausea: Yes Associated symtoms: Reports nausea; Denies chest pain or dysuria Related Data Home Medications ?Medication ?Instructions ?Recorded ?Confirmed multivitamin with folic acid 400 1 tab PO DAILY 08/12/24 mcg tablet (Tab-A-Tad) Previous Rx's ?Medication ?Instructions ?Recorded escitalopram oxalate 20 mg tablet 20 mg PO DAILY 30 da ys #30 tabs 07/12/24 folic acid 1 mg tablet 1 mg PO DAILY #30 tabs 07/12 pantoprazole 40 mg tablet,delayed 40 mg PO DAILY 30 da ys #30 tabs 07/12/24 release quetiapine 100 mg tablet 100 mg PO .at night 30 days #30 07/12/24 tabs thiamine mononitrate (vit B1) 100 100 mg PO DAILY #30 tabs 07/12/24 mg tablet (Vitamin B-1 (mononitrate)) Allergies Allergy/AdvReac Type Severity Reaction Status Date / Time No Known Allergies Allergy Verified 08/07/24 14:36 Review of Systems 2 Const: Denies: fever(s) or chills Card: Denies: chest pain Resp: Denies: dyspnea GI: Reports: abdominal pain, nausea, vomiting and diarrhea; Denies: hematemesis, coffee ground emesis, hematochezia, melena or mucus in stool : Denies: dysuria, urinary frequency or urinary urgency Musc: Denies: neck pain or back pain Skin/Breast: Denies: rash PFSH ED 2 PFSH: Medical History ALC (alcoholic liver cirrhosis) Physical Exam 2 Const: COMMON NORMALS: no acute distress GENERAL APPEARANCE: cooperative and comfortable ORIENTATION/CONSCIOUSNESS: Yes awake, Yes oriented to person, Yes oriented to place and Yes oriented to time HENMT: COMMON NORMALS: normocephalic, atraumatic and hearing grossly normal bilaterally HEAD & SCALP: normocephalic and atraumatic Eye: OTHER: Scleral icterus mild Resp: COMMON NORMALS: normal respiratory effort, No retractions, No use of accessory muscles and clear to auscultation bilaterally AUSCULTATION: clear to auscultation bilaterally Cardio: COMMON NORMALS: regular rate, regular rhythm and No murmurs present (Cardio) RATE: regular rate RHYTHM: regular rhythm GI: AUSCULTATION: Yes normoactive bowel sounds PALPATION: No Tenderness to palpation present (GI), No Guarding due to palpation present (GI) and Yes Hepatomegaly present Extremity: COMMON NORMALS: normal to inspection, capillary refill normal, no clubbing, cyanosis or edema, no calf tenderness and no pedal edema Neuro: SENSORIUM/ORIENTATION: Yes oriented to person, Yes oriented to place and Yes oriented to time Skin: COMMON NORMALS: no rashes or lesions noted GENERAL SKIN EXAM: no rashes or lesions noted Course 2 Vital Signs: Vital signs: Vital Signs Temperature 98.3 F 08/12/24 06:13 Pulse Rate 65 08/12/24 11:33 Respiratory Rate 24 H 08/12/24 06:13 Blood Pressure 123/82 08/12/24 11:33 Pulse Oximetry 91 08/12/24 11:33 MDM - Nausea/Vomiting/Diarrhea Medical Decision Making Labs repeated his lipase is elevated from this morning however he does not have any significant physical exam findings suggestive of acute pancreatitis at this time. His CT of his abdomen is repeated no consistent findings consistent with acute pancreatitis. 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 We did order his C. difficile but we did not get the stool sample from him. Will discharge the patient home. He is not encephalopathic. He is not having large volumes of diarrhea at this time and has not over the last 13 hours. He did not have any vomiting after he checked in again either. His other lab work while it did show abnormalities but not significantly different than what would be expected based on his known history and the lab work done earlier. Will discharge patient home have him follow-up with his primary care doctor. Medical Records I reviewed the patient's medical records. Lab Data I reviewed the patient's lab results. 08/12/24 07:04 08/12/24 07:04 Radiology Impressions Chest X-Ray 08/12/24 06:49 IMPRESSION: No acute findings. Abdomen/Pelvis CT 08/12/24 08:13 IMPRESSION: 1. Small amount of ascites throughout the abdomen and pelvis. Similar to the most recent studies but new since 07/01/2024. 2. No free air. 3. Increasing fluid in the small bowel with small bowel wall mucosal thickening. This can be seen with ascites, infection and portal venous hypertension. Small bowel fluid has increased since the study earlier the same day. 4. Small amount of mesenteric and omental edema new since 07/01/2024. 5. Cirrhotic liver. 6. Spleen is normal size. 7. Normally distended gallbladder. Laboratory Results WBC 8.64 10^3/uL (3.29-11.43) 08/12/24 07:04 RBC 4.42 10^6/uL (3.85-5.65) 08/12/24 07:04 Hgb 14.50 g/dL (11.27-16.99) 08/12/24 07:04 Hct 44.9 % (37-53) 08/12/24 07:04 MCV 101.6 fl (82-101) H 08/12/24 07:04 MCH 32.8 pg (27-33) 08/12/24 07:04 MCHC 32.3 g/dL (30-55) 08/12/24 07:04 RDW 13.6 % (12.1-15.1) 08/12/24 07:04 Plt Count 235 10^3/cmm (157-399) 08/12/24 07:04 MPV 12.0 fL (7.4-10.4) H 08/12/24 07:04 Neut % (Auto) 72.1 % 08/12/24 07:04 Lymph % (Auto) 17.0 % 08/12/24 07:04 Motley % (Auto) 8.6 % 08/12/24 07:04 Eos % (Auto) 1.2 % 08/12/24 07:04 Baso % (Auto) 0.9 % 08/12/24 07:04 Neut # (Auto) 6.23 10^3/uL (1.8-7.7) 08/12/24 07:04 Lymph # (Auto) 1.5 10^3/uL (0.8-4.8) 08/12/24 07:04 Motley # (Auto) 0.7 10^3/uL (0.2-0.9) 08/12/24 07:04 Eos # (Auto) 0.1 10^3/uL (0.0-0.8) 08/12/24 07:04 Baso # (Auto) 0.1 10^3/uL (0.0-0.1) 08/12/24 07:04 Nucleated RBC % (auto) 0 % 08/12/24 07:04 Nucleated RBCs # 0.0 /100WBC 08/12/24 07:04 PT 14.90 SECONDS (12.1-14.9) 08/12/24 07:04 INR 1.09 (0.8-1.2) 08/12/24 07:04 Sodium 137 mmol/L (136-145) 08/12/24 07:04 Potassium 3.1 mmol/L (3.5-5.1) L 08/12/24 07:04 Chloride 102 mmol/L (98-107) 08/12/24 07:04 Carbon Dioxide 23 mmol/L (22-29) 08/12/24 07:04 Anion Gap 15.1 (5-19) 08/12/24 07:04 BUN 5 mg/dL (8-23) L 08/12/24 07:04 Creatinine 0.8 mg/dL (0.7-1.2) 08/12/24 07:04 GFR Calculation 98.0 mL/min (90-130) 08/12/24 07:04 Glucose 120 mg/dL (65-115) H 08/12/24 07:04 Calculated Osmolality 282 mOsm/kg (285-295) L 08/12/24 07:04 Calcium 8.2 mg/dL (8.5-10.5) L 08/12/24 07:04 Magnesium 2.1 mg/dL (1.7-2.3) 08/12/24 07:04 Total Bilirubin 4.8 mg/dL (0.15-1.2) H 08/12/24 07:04 AST 72 U/L (0-40) H 08/12/24 07:04 ALT 25 U/L (0-41) 08/12/24 07:04 Alkaline Phosphatase 156 U/L (40-130) H 08/12/24 07:04 Ammonia 35 umol/L (16-60) 08/12/24 07:04 Total Protein 6.1 g/dL (6.6-8.7) L 08/12/24 07:04 Albumin 3.3 g/dL (3.5-5.2) L 08/12/24 07:04 Globulin 2.8 g/dL (1.3-4.6) 08/12/24 07:04 Lipase 127 U/L (13-60) H 08/12/24 07:04 Urine Color Dark yellow (Yellow) A 08/12/24 07:38 Urine Appearance Clear (CLEAR) 08/12/24 07:38 Urine pH 6.5 (5-7) 08/12/24 07:38 Ur Specific [place] 1.005 (1.005-1.030) 08/12/24 07:38 Urine Protein 1+ (Negative) A 08/12/24 07:38 Urine Glucose (UA) Norm (Normal) 08/12/24 07:38 Urine Ketones Negative (Negative) 08/12/24 07:38 Urine Blood 2+ (Negative) A 08/12/24 07:38 Urine Nitrate Negative (Negative) 08/12/24 07:38 Urine Bilirubin 2+ (Negative) H 08/12/24 07:38 Urine Urobilinogen 8 mg/dL (Negative) H 08/12/24 07:38 Ur Leukocyte Esterase Negative (Negative) 08/12/24 07:38 Urine RBC 6-10 /hpf (0-2) 08/12/24 07:38 Urine WBC 6-10 /hpf (0-5) 08/12/24 07:38 Ur Squamous Epith Cells 0-5 /hpf (0-5) 08/12/24 07:38 Amorphous Sediment Not Reportable 08/12/24 07:38 Urine Bacteria None seen /hpf (NONE) 08/12/24 07:38 Hyaline Casts 0.55 /lpf 08/12/24 07:38 All radiology interpretation(s) finalized by discharge Discharge Plan Discharge Patient Disposition: Home Clinical Impression: Diarrhea ALC (alcoholic liver cirrhosis) Qualifiers: Ascites presence: with ascites Qualified Code(s): K70.31 - Alcoholic cirrhosis of liver with ascites Condition: Stable Prescriptions: No Action folic acid 1 mg Tablet 1 mg PO DAILY Qty: 30 0RF thiamine mononitrate (vit B1) [Vitamin B-1 (mononitrate)] 100 mg Tablet 100 mg PO DAILY Qty: 30 0RF quetiapine 100 mg Tablet 100 mg PO .at night 30 Days Qty: 30 1RF pantoprazole 40 mg Tablet,Delayed Release (Dr/Ec) 40 mg PO DAILY 30 Days Qty: 30 1RF escitalopram oxalate 20 mg tablet 20 mg PO DAILY 30 Days Qty: 30 1RF multivitamin with folic acid [Tab-A-Tad] 400 mcg tablet 1 tab PO DAILY Discharge Orders: Discharge ED (Routine); Ordered 08/12/24 Ordered By: James Paiz Discharge Diet: Usual diet Discharge Activity: Increase activity as tolerated Patient Instructions: Opioid Safety, Pain Management Activity Restrictions/Additional Instructions: Thank you for choosing [facility] for your healthcare needs today. It is very important that you follow up as instructed or that you return to the Emergency Department should you have concerns or if your condition changes or worsens in any way. You were seen in the ER for complaints of diarrhea. During the 2 visits you did not have any episodes of diarrhea. Your laboratory test show abnormalities but they are consistent with known underlying disease. Print Language: Malaysian Coding Level of Care Code ED Fabric Finisher for Atif Mendes
[2024-08-12 06:39] VITALS: BP 139/108; PULSE 105; O2SAT 94
--- NOTE | 2024-08-12 06:49 | XRR_ITS ---
PROCEDURE INFORMATION: Exam: XR Chest Exam date and time: 08/12/2024 7:11 AM Age: 64 years old Clinical indication: Dyspnea TECHNIQUE: Imaging protocol: Radiologic exam of the chest. Views: 1 view. COMPARISON: CR XR chest 1V portable [id number] 07/01/2024 3:08 PM FINDINGS: Lungs: Unremarkable. No consolidation. Pleural spaces: Unremarkable. No pleural effusion. No pneumothorax. Heart/Mediastinum: Unremarkable. No cardiomegaly. Bones/joints: Unremarkable. XR/XR chest 1V portable [id number] IMPRESSION: No acute findings.
--- NOTE | 2024-08-12 07:04 | ECG_ITS ---
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 Measurements Intervals [place] Rate: 87 P: 44 FL: 176 QRS: -51 QRSD: 115 T: 54 QT: 390 QTc: 470 Interpretive Statements SINUS RHYTHM WITH OCCASIONAL VENTRICULAR PREMATURE COMPLEXES LOW QRS VOLTAGE IN PRECORDIAL LEADS [QRS DEFLECTION < 1.0 mV IN CHEST LEADS] INCOMPLETE RIGHT BUNDLE BRANCH BLOCK [90+ ms QRS DURATION, TERMINAL R IN V1/V2, 40+ ms S IN I/aVL/V4/V5/V6] LEFT ANTERIOR FASCICULAR BLOCK [QRS AXIS <= -45, QR IN I, RS IN II] MODERATE T-WAVE ABNORMALITY, CONSIDER ANTERIOR ISCHEMIA [-0.1+ mV T-WAVE IN V3/V4] Compared to ECG 07/01/2024 13:08:20 Ventricular premature complex(es) now present Sinus tachycardia no longer present T-wave abnormality still present Possible ischemia still present Electronically Signed On 08-12-2024 21:34:50 CDT by Junior Downs M.D. [email or web address]
[2024-08-12] MEDS: sodium chloride 0.9% 1,000 ML 999 ML IV (07:06)
[2024-08-12 07:13] LABS: Basophils # 0.1 10^3/uL (0.0-0.1); Basophils % 0.9 %; Eosinophils # 0.1 10^3/uL (0.0-0.8); Eosinophils % 1.2 %; Hematocrit 44.9 % (37-53); Lymphocytes # 1.5 10^3/uL (0.8-4.8); Mean Corpuscular HGB Conc 32.3 g/dL (30-55); Mean Corpuscular Hemoglobin 32.8 pg (27-33); Mean Corpuscular Volume 101.6 fl (82-101); Monocytes # 0.7 10^3/uL (0.2-0.9); Monocytes % 8.6 %; Neutrophils # 6.23 10^3/uL (1.8-7.7); Neutrophils % 72.1 %; Nucleated Red Blood Cells % 0 %; Platelet Count 235 10^3/cmm (157-399); Red Blood Count 4.42 10^6/uL (3.85-5.65); Red Cell Distribution Width 13.6 % (12.1-15.1); White Blood Count 8.64 10^3/uL (3.29-11.43)
[2024-08-12 07:27] LABS: INR 1.09 (0.8-1.2)
[2024-08-12 07:32] LABS: Alanine Aminotransferase 25 U/L (0-41); Albumin Level 3.3 g/dL (3.5-5.2); Alkaline Phosphatase 156 U/L (40-130); Anion Gap 15.1 (5-19); Aspartate Amino Transferase 72 U/L (0-40); Blood Urea Nitrogen 5 mg/dL (8-23); Calcium 8.2 mg/dL (8.5-10.5); Carbon Dioxide 23 mmol/L (22-29); Chloride 102 mmol/L (98-107); Creatinine Clr Calc Pharmacy 112.1889; Globulin 2.8 g/dL (1.3-4.6); Glucose 120 mg/dL (65-115); Lipase 127 U/L (13-60); Magnesium 2.1 mg/dL (1.7-2.3); Osmolality Calculated 282 mOsm/kg (285-295); Potassium 3.1 mmol/L (3.5-5.1); Sodium 137 mmol/L (136-145); Total Bilirubin 4.8 mg/dL (0.15-1.2); Total Protein 6.1 g/dL (6.6-8.7)
[2024-08-12 07:35] LABS: Ammonia 35 umol/L (16-60)
[2024-08-12 08:04] LABS: Bacteria Urine None Seen /hpf; Hyaline Casts Urine 0.55 /lpf; Squamous Epithelial Cell Urine 0-5 /hpf (0-5); Universal Test for UA Present (0)
[2024-08-12 08:12] LABS: Urine Color Dark Yellow (Yellow)
[2024-08-12 08:13] LABS: Add Urine Microscopic? YES; Bilirubin Urine 2+ (Negative); Blood Urine 2+ (Negative); Glucose Urine UA Norm (Normal); Ketones Urine Negative (Negative); Leukocyte Esterase Urine Negative (Negative); Nitrate Urine Negative (Negative); Protein Urine 1+ (Negative); Specific Gravity, Urine 1.005 (1.005-1.030); Urine Appearance Clear (CLEAR); Urobilinogen Urine 8 mg/dL (Negative); pH Urine 6.5 (5-7)
--- NOTE | 2024-08-12 08:13 | CT_ITS ---
WS: [id number] CT ABDOMEN AND PELVIS NONCONTRAST HISTORY: Abdominal pain, nausea and vomiting. TECHNIQUE: Imaging performed through the abdomen and pelvis. Coronal and sagittal reformats are submitted. All CT scans at [facility] use at least one of these dose optimization techniques: automated exposure control; mA and/or kV adjustment per patient size (includes targeted exams where dose is matched to clinical indication); or iterative reconstruction. DLP: 740.07 mGy.cm COMPARISON: 08/07/2024, 08/12/2024, 07/01/2024 Lower thorax: Lung bases are clear. Visualized heart is normal. No hiatal hernia. Small amount of fluid adjacent to the distal esophagus. Liver: Decreased attenuation throughout the liver. Decreased attenuation and changes of cirrhosis. Better visualized on prior exams with contrast. Granuloma. Gallbladder: Normally distended. There is a small amount of adjacent fluid but this is not specific to the gallbladder. Pancreas: Normal size and attenuation. Normal pancreatic duct. No pancreatitis or mass. Spleen: Normal size with granulomata. Adrenal glands: Normal RIGHT adrenal gland. LEFT adrenal nodularity unchanged. Right kidney: No renal obstruction. Left kidney: No renal obstruction. Lower pole cysts, largest measures 1.9 cm. Aorta: Normal size aorta. Mild atherosclerosis. Small amount of free fluid adjacent to the liver and spleen and extending along the paracolic gutters. Small amount of free fluid in the pelvis. The amount of fluid has not changed since 08/12/2024 or 08/07/2024. Ascites is new since 07/01/2024. Additional new areas of mesenteric edema. GI tract: Stomach is not distended. Stomach is decompressed since the study earlier the same day. There is no small bowel obstruction. There is small bowel wall thickening and an increased fluid. Transverse diameter of the small bowel measuring just over 3 cm. No ischemic changes. No colon obstruction. Abdominal wall: Negative. No hernia. Pelvis: Urinary bladder is nondistended. Excreted IV contrast is present in the bladder. Small amount of free fluid within the pelvis. No adenopathy. Bilateral inguinal canals are patent, LEFT greater than RIGHT. Osseous structures: Mild anterior wedging of T12. CT/CT abdomen pelvis wo con [id number] IMPRESSION: 1. Small amount of ascites throughout the abdomen and pelvis. Similar to the m ost recent studies but new since 07/01/2024. 2. No free air. 3. Increasing fluid in the small bowel with small bowel wall mucosal thickenin g. This can be seen with ascites, infection and portal venous hypertension. Sma ll bowel fluid has increased since the study earlier the same day. 4. Small amount of mesenteric and omental edema new since 07/01/2024. 5. Cirrhotic liver. 6. Spleen is normal size. 7. Normally distended gallbladder.
[2024-08-12 08:24] LABS: Add Urine Culture? No
[2024-08-12 11:33] VITALS: BP 123/82; PULSE 65; O2SAT 91
== END 2024-08-12 11:36 | disposition home or self-care (01) ==
PROVIDERS: Emergency Provider Family Medicine
DX: R19.7 Diarrhea, unspecified (principal); K70.31 Alcoholic cirrhosis of liver with ascites
CPT/HCPCS: 71045; 74176; 80053; 81001; 82140; 83690; 83735; 85025; 85610; 93005; 99285; J7030

== ENCOUNTER 2024-08-26 07:20 | Emergency (ER) | payer SELFPAY ==
[2024-08-26] VITALS (15 sets, daily range): BP systolic 108–158; BP diastolic 76–126; PULSE 78–137; RESP 16–26; TEMP 36.6; O2SAT 91–96; BMI 27.1
--- NOTE | 2024-08-26 07:32 | CT_ITS ---
WS: [id number] CT ABDOMEN AND PELVIS NONCONTRAST HISTORY: Abdominal pain, nausea and vomiting. TECHNIQUE: Imaging performed through the abdomen and pelvis. Coronal and sagittal reformats are submitted. All CT scans at [facility] use at least one of these dose optimization techniques: automated exposure control; mA and/or kV adjustment per patient size (includes targeted exams where dose is matched to clinical indication); or iterative reconstruction. DLP: 1289.16 mGy.cm COMPARISON: 08/12/2024 Lower thorax: Lung bases are clear. Visualized heart is normal. Fluid refluxing into the distal esophagus. Liver: Abnormal liver. Diffuse low-attenuation throughout the liver with granulomata. Edematous liver. New areas of decreased attenuation scattered throughout the liver which were not present on 08/12/2024. There are multiple areas of decreased attenuation with the largest adjacent to the gallbladder me asuring 2.8 x 2.9 cm. No intrahepatic duct dilatation. Gallbladder: Normal gallbladder. No pericholecystic fluid or cholelithiasis. No gallbladder wall thickening. Pancreas: Atrophied. Spleen: Normal. Adrenal glands: RIGHT adrenal gland is negative. 1.5 cm LEFT adrenal gland mass is unchanged. Right kidney: Normal size kidney with no mass or hydronephrosis. Left kidney: Normal size kidney with no obstruction. Low-attenuation masses LEFT kidney with the largest measuring 2.2 cm, noted to be a cyst on the prior study. Aorta: Mild atherosclerosis abdominal aorta with no aneurysm. Increasing amount of ascites throughout the abdomen. Ascites adjacent to the liver and spleen and also at the lesser curvature of the stomach in the central mesentery extending into the pelvis. Mild mesenteric edema. No free air. No adenopathy. GI tract: Stomach is not distended. Numerous high density small rounded structures within the GI tract probably medicinal. Abdominal wall: Negative. No hernia. Pelvis: Free fluid. Nondistended urinary bladder. Patent bilateral inguinal canals containing fat only. Osseous structures: Mild T11 and T12 anterior wedging similar to the prior study. CT/CT abdomen pelvis wo con [id number] IMPRESSION: 1. Increase in ascites throughout the peritoneal cavity since 08/12/2024. 2. Cirrhotic edematous liver. 3. Normal size spleen. 4. New areas of decreased attenuation scattered throughout the liver, new sinc e 08/12/2024. Due to the sudden onset consider hepatic abscesses or infarcts. 5. No renal obstruction. 6. Small amount of fluid in the distal esophagus from reflux disease. Notified James Paiz DO at 08/26/2024 8:50 AM.
--- NOTE | 2024-08-26 07:33 | ECG_ITS ---
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[id number] Requested By: James Acevedo Order Number: [id number] Reading MD: SUDHAKAR RICHARDS Measurements Intervals [place] Rate: 131 P: 79 IN: 201 QRS: -68 QRSD: 103 T: 57 QT: 398 QTc: 590 Interpretive Statements SINUS TACHYCARDIA PATTERN CONSISTENT WITH PULMONARY DISEASE INCOMPLETE RIGHT BUNDLE BRANCH BLOCK [90+ ms QRS DURATION, TERMINAL R IN V1/V2, 40+ ms S IN I/aVL/V4/V5/V6] LEFT ANTERIOR FASCICULAR BLOCK [QRS AXIS <= -45, QR IN I, RS IN II] MINIMAL ST DEPRESSION [0.025+ mV ST DEPRESSION] Compared to ECG 08/12/2024 07:04:17 ST (T wave) deviation now present Sinus rhythm no longer present Ventricular premature complex(es) no longer present T-wave abnormality no longer present Possible ischemia no longer present Electronically Signed On 08-26-2024 20:58:26 CDT by SUDHAKAR RICHARDS [email or web address]
--- NOTE | 2024-08-26 07:35 | W.ED.GENADLT ---
HPI - General Adult General: Chief complaint: Nausea/Vomiting/Diarrhea Stated complaint: ams, unable to eat, liver problems Time Seen by Provider: 08/26/24 07:30 History of Present Illness: 66-year-old male presents emergency room with altered mental status and obvious jaundice. He has a known history of alcoholic liver cirrhosis. Patient states he is not anything to drink in the last 2 weeks. He has been seen several times recently with abdominal discomfort. He has been very nauseous had some bilious vomiting he denies any hematochezia melena hematemesis cough cramps no dysuria urgency or frequency. Associated symptoms: Reports nausea; Deny chest pain, dyspnea, rash or vomiting Related Data Home Medications ?Medication ?Instructions ?Recorded ?Confirmed multivitamin with folic acid 400 1 tab PO DAILY 08/12/24 08/26/24 mcg tablet (Tab-A-Tad) Previous Rx's ?Medication ?Instructions ?Recorded escitalopram oxalate 20 mg tablet 20 mg PO DAILY 30 days #30 tabs 07/12/24 folic acid 1 mg tablet 1 mg PO DAILY #30 tabs 07/12/24 pantoprazole 40 mg tablet,delayed 40 mg PO DAILY 30 days #30 tabs 07/12/24 release quetiapine 100 mg tablet 100 mg PO .at night 30 days #30 07/12/24 tabs thiamine mononitrate (vit B1) 100 100 mg PO DAILY #30 tabs 07/12/24 mg tablet (Vitamin B-1 (mononitrate)) Allergies Allergy/AdvReac Type Severity Reaction Status Date / Time No Known Allergies Allergy Verified 08/07/24 14:36 Review of Systems Const: Denies: fever(s) or chills Card: Denies: chest pain Resp: Denies: dyspnea GI: Reports: abdominal pain and nausea; Denies: vomiting, hematemesis, coffee ground emesis, hematochezia or melena : Denies: dysuria, urinary frequency or urinary urgency Musc: Denies: neck pain or back pain Skin/Breast: Denies: rash PFSH ED PFSH: Medical History ALC (alcoholic liver cirrhosis) Physical Exam Const: GENERAL APPEARANCE: cooperative ORIENTATION/CONSCIOUSNESS: Yes awake HENMT: COMMON NORMALS: normocephalic, atraumatic and hearing grossly normal bilaterally HEAD & SCALP: normocephalic and atraumatic Resp: COMMON NORMALS: normal respiratory effort, No retractions, No use of accessory muscles and clear to auscultation bilaterally AUSCULTATION: clear to auscultation bilaterally Cardio: COMMON NORMALS: regular rate, regular rhythm and No murmurs present (Cardio) RATE: regular rate RHYTHM: regular rhythm GI: COMMON NORMALS: No hepatosplenomegaly present INSPECTION: Yes abdominal distension and Yes Fluid wave present AUSCULTATION: Yes normoactive bowel sounds PALPATION: Yes Tenderness to palpation present (GI) (Epigastric right upper quadrant), No Guarding due to palpation present (GI), Yes No hepatosplenomegaly present, Yes Hepatomegaly present and Yes Ascites present PERCUSSION: dullness to percussion and Fluid wave present Extremity: COMMON NORMALS: normal to inspection, capillary refill normal, no clubbing, cyanosis or edema, no calf tenderness and no pedal edema Skin: COMMON NORMALS: no rashes or lesions noted GENERAL SKIN EXAM: no rashes or lesions noted Course Vital Signs: Vital signs: Vital Signs Temperature 97.9 F 08/26/24 07:38 Pulse Rate 77 08/27/24 00:10 Respiratory Rate 17 08/27/24 00:00 Blood Pressure 112/74 08/27/24 00:10 Pulse Oximetry 94 08/27/24 00:10 Oxygen Delivery Me thod Room Air 08/26/24 09:04 MDM - General Adult Medical Decision Making Initial CT done without contrast shows possible liver abscess associated with the gallbladder after discussion with Dr. Koroma repeated CT with contrast confirms. We do not have interventional radiology that would be able to place a drain in this. Patient will require IR and possibly GI. Discussed with transfer line [facility] after discussing with GI and general surgery they concur and transfer made arrangements made for hospitalist service and which will consult interventional radiology GI and surgery as indicated. Patient given antibiotics here. Transferred in stable condition via [facility] ambulance. Paracentesis was done by radiology while here fluid analysis and cultures ordered. Lab Data 08/26/24 07:41 08/26/24 07:41 Radiology Impressions Chest X-Ray 08/26/24 07:37 IMPRESSION: No acute cardiopulmonary abnormality. Paracentesis Ultrasound 08/26/24 07:41 IMPRESSION: Uncomplicated ultrasound-guided paracentesis. Removal of 7010cc Abdomen/Pelvis CT 08/26/24 08:58 IMPRESSION: 1. Multiple small low-attenuation masses with mild rim enhancement in contact with the gallbladder. There is also gallbladder wall enhancement. These are new since 08/12/2024. Favor small hepatic abscesses. May be secondary to acute cholecystitis. At at this time there is mild gallbladder wall enhancement but no hydrops. 2. Additional intensely enhancing nodule subcapsular RIGHT lobe of the liver is probably a hemangioma. 3. Hepatic steatosis. 4. Ascites, decreased since the paracentesis performed on the same day. Laboratory Results WBC 9.44 10^3/uL (3.29-11.43) 08/26/24 07:41 RBC 4.30 10^6/uL (3.85-5.65) 08/26/24 07:41 Hgb 13.90 g/dL (11.27-16.99) 08/26/24 07:41 Hct 41.4 % (37-53) 08/26/24 07:41 MCV 96.3 fl (82-101) 08/26/24 07:41 MCH 32.3 pg (27-33) 08/26/24 07:41 MCHC 33.6 g/dL (30-55) 08/26/24 07:41 RDW 14.2 % (12.1-15.1) 08/26/24 07:41 Plt Count 301 10^3/cmm (157-399) 08/26/24 07:41 MPV 10.6 fL (7.4-10.4) H 08/26/24 07:41 Neut % (Auto) 71.7 % 08/26/24 07:41 Lymph % (Auto) 16.5 % 08/26/24 07:41 [place] % (Auto) 10.0 % 08/26/24 07:41 Eos % (Auto) 0.4 % 08/26/24 07:41 Baso % (Auto) 1.0 % 08/26/24 07:41 Neut # (Auto) 6.77 10^3/uL (1.8-7.7) 08/26/24 07:41 Lymph # (Auto) 1.6 10^3/uL (0.8-4.8) 08/26/24 07:41 [place] # (Auto) 0.9 10^3/uL (0.2-0.9) 08/26/24 07:41 Eos # (Auto) 0.0 10^3/uL (0.0-0.8) 08/26/24 07:41 Baso # (Auto) 0.1 10^3/uL (0.0-0.1) 08/26/24 07:41 Nucleated RBC % (auto) 0 % 08/26/24 07:41 Nucleated RBCs # 0.0 /100WBC 08/26/24 07:41 PT 15.50 SECONDS (12.1-14.9) H 08/26/24 07:41 INR 1.15 (0.8-1.2) 08/26/24 07:41 Specimen Type Arterial 08/26/24 07:36 Sample Site Brachial, right 08/26/24 07:36 ABG pH 7.48 (7.35-7.45) H 08/26/24 07:36 ABG pCO2 33.8 mmHg (35-45) L 08/26/24 07:36 ABG pO2 71.1 mmHg (80.0-100.0) L 08/26/24 07:36 ABG PO2/FiO2 Ratio 338 08/26/24 07:36 ABG HCO3 25.3 mmol/L (22-26) 08/26/24 07:36 ABG O2 Saturation 95.2 08/26/24 07:36 ABG Base Excess 2.3 mmol/L (-2.0-2.0) H 08/26/24 07:36 Bunny Test N/a 08/26/24 07:36 A-a O2 Gradient 4.7 mmHg (5-10) L 08/26/24 07:36 Hematocrit 44.0 % (42-52) 08/26/24 07:36 Hgb O2 Saturation 93.3 % (95-100) L 08/26/24 07:36 Carboxyhemoglobin 1.1 %THgb (0.4-20.1) 08/26/24 07:36 Methemoglobin 0.9 % (0.4-1.5) 08/26/24 07:36 Total Hemoglobin 14.4 g/dL (14-18) 08/26/24 07:36 Sodium 134.0 mmol/L (131-143) 08/26/24 07:36 Potassium 3.3 mmol/L (3.5-5.0) L 08/26/24 07:36 Glucose 122.0 mg/dL (70-115) H 08/26/24 07:36 Ionized Calcium 1.1 mmol/L (1.1-1.4) 08/26/24 07:36 O2 Delivery Device Room air 08/26/24 07:36 FiO2 21.0 % 08/26/24 07:36 Simulation Educator ID Mbb 08/26/24 07:36 Sodium 132 mmol/L (136-145) L 08/26/24 07:41 Potassium 3.7 mmol/L (3.5-5.1) 08/26/24 07:41 Chloride 94 mmol/L (98-107) L 08/26/24 07:41 Carbon Dioxide 19 mmol/L (22-29) L 08/26/24 07:41 Anion Gap 22.7 (5-19) H 08/26/24 07:41 BUN 7 mg/dL (8-23) L 08/26/24 07:41 Creatinine 0.6 mg/dL (0.7-1.2) L 08/26/24 07:41 GFR Calculation 136.5 mL/min (90-130) H 08/26/24 07:41 Glucose 119 mg/dL (65-115) H 08/26/24 07:41 Calculated Osmolality 273 mOsm/kg (285-295) L 08/26/24 07:41 Lactic Acid 2.8 mmol/L (0.5-2.2) H 08/26/24 07:41 Lactic Acid (Sepsis) 2.0 mmol/L (0.5-2.2) 08/26/24 10:42 Calcium 9.3 mg/dL (8.5-10.5) 08/26/24 07:41 Total Bilirubin 3.7 mg/dL (0.15-1.2) H 08/26/24 07:41 AST 132 U/L (0-40) H 08/26/24 07:41 ALT 38 U/L (0-41) 08/26/24 07:41 Alkaline Phosphatase 269 U/L (40-130) H 08/26/24 07:41 Ammonia 37 umol/L (16-60) 08/26/24 07:41 Troponin T Baseline 15 ng/L (0-15) 08/26/24 07:41 Troponin T 120 Minute 6.00 ng/L (0-15) 08/26/24 09:48 Delta Troponin T -9.00 ABS# (0-10) L 08/26/24 09:48 Troponin T Hi Sens 6Hr 15.07 ng/L (0-15) H 08/26/24 13:54 Troponin T Hi Sens 6Hr Delta 0.07 ng/L (0-12) 08/26/24 13:54 Total Protein 6.3 g/dL (6.6-8.7) L 08/26/24 07:41 Albumin 3.6 g/dL (3.5-5.2) 08/26/24 07:41 Globulin 2.7 g/dL (1.3-4.6) 08/26/24 07:41 Lipase 25 U/L (13-60) 08/26/24 07:41 Urine Color Yellow (Yellow) 08/26/24 10:53 Urine Appearance Clear (CLEAR) 08/26/24 10:53 Urine pH 6.5 (5-7) 08/26/24 10:53 Ur Specific [place] 1.090 (1.005-1.030) H 08/26/24 10:53 Urine Protein Trace (Negative) A 08/26/24 10:53 Urine Glucose (UA) Negative (Normal) 08/26/24 10:53 Urine Ketones Trace (Negative) 08/26/24 10:53 Urine Blood Negative (Negative) 08/26/24 10:53 Urine Nitrate Negative (Negative) 08/26/24 10:53 Urine Bilirubin Negative (Negative) 08/26/24 10:53 Urine Urobilinogen 0.2 mg/dL (Negative) 08/26/24 10:53 Ur Leukocyte Esterase Negative (Negative) 08/26/24 10:53 Urine RBC 0-2 /hpf (0-2) 08/26/24 10:53 Urine WBC 0-5 /hpf (0-5) 08/26/24 10:53 Ur Squamous Epith Cells 0-5 /hpf (0-5) 08/26/24 10:53 Amorphous Sediment Not Reportable 08/26/24 10:53 Urine Bacteria None seen /hpf (NONE) 08/26/24 10:53 Hyaline Casts 0-4 /lpf H 08/26/24 10:53 Peritoneal Color Pale yellow (Pale Yellow) 08/26/24 09:00 Peritoneal Appearance Hazy (Clear) 08/26/24 09:00 Peritoneal WBC 73 /uL 08/26/24 09:00 Peritoneal RBC 0 10^3/uL 08/26/24 09:00 Periton Mononu # Auto 0.066 10^3/uL 08/26/24 09:00 Mononuclear WBCs % 90.500 % 08/26/24 09:00 Polynuclear WBCs % 9.500 % 08/26/24 09:00 Perit Polynuc WBCs # 0.007 10^3/uL 08/26/24 09:00 Salicylates < 0.3 mg/dL (3-10) L 08/26/24 07:41 Acetaminophen 21.2 ug/mL (10-30) 08/26/24 07:41 Ethyl Alcohol < 10 mg/dL (0-10) 08/26/24 07:41 All radiology interpretation(s) finalized by discharge Discharge Plan Discharge Patient Disposition: Xfer Short-Term Hosp Clinical Impression: Abscess of liver, Alcoholic cirrhosis of liver, Ascites due to alcoholic cirrhosis, Acute cholecystitis Condition: Stable Print Language: Syriac Coding Level of Care Code ED 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
--- NOTE | 2024-08-26 07:37 | XRR_ITS ---
PROCEDURE INFORMATION: Exam: XR Chest Exam date and time: 08/26/2024 7:42 AM Age: 64 years old Clinical indication: Other: AMS; Additional info: Altered mental status tachycardia TECHNIQUE: Imaging protocol: Radiologic exam of the chest. Views: 1 view. COMPARISON: CR XR chest 1V portable [id number] 08/12/2024 7:11 AM FINDINGS: Lungs: Hypoinflation with bronchovascular crowding. No focal consolidation. Pleural spaces: No pleural effusion. No pneumothorax. Heart/Mediastinum: No cardiomegaly. Vasculature: Tortuous aorta. Bones/joints: Degenerative change of the spine and shoulders. XR/XR chest 1V portable [id number] IMPRESSION: No acute cardiopulmonary abnormality.
--- NOTE | 2024-08-26 07:41 | US_ITS ---
WS: [id number] ULTRASOUND-GUIDED PARACENTESIS CLINICAL INFORMATION: abd distention, AMS, hx cirrhosis COMPARISON: None. Procedure Informed consent: The risks, benefits, and alternatives of the procedure were discussed with the patient. Verbal and written consent was obtained. Timeout: A timeout was performed to confirm the correct patient, procedure, and site. Preparation: A suitable skin site was identified. The patient was prepped and draped in usual sterile fashion. Lidocaine 1% was used for local anesthesia. Catheter: 4 [place] One-step Alaris Royaltyeh catheter. Side: RIGHT lower quadrant. Fluid Volume: 7010 ml Color: Clear yellow DISPOSITION: Discarded safely. Complications: None. US/US paracentesis abd w [id number] IMPRESSION: Uncomplicated ultrasound-guided paracentesis. Removal of 7010cc
[2024-08-26 07:46] LABS: Basophils # 0.1 10^3/uL (0.0-0.1); Eosinophils % 0.4 %; Hematocrit 41.4 % (37-53); Lymphocytes # 1.6 10^3/uL (0.8-4.8); Lymphocytes % 16.5 %; Mean Corpuscular HGB Conc 33.6 g/dL (30-55); Mean Corpuscular Hemoglobin 32.3 pg (27-33); Mean Corpuscular Volume 96.3 fl (82-101); Mean Platelet Volume 10.6 fL (7.4-10.4); Monocytes # 0.9 10^3/uL (0.2-0.9); Neutrophils # 6.77 10^3/uL (1.8-7.7); Neutrophils % 71.7 %; Nucleated Red Blood Cells % 0 %; Platelet Count 301 10^3/cmm (157-399); Red Cell Distribution Width 14.2 % (12.1-15.1); White Blood Count 9.44 10^3/uL (3.29-11.43)
[2024-08-26 07:47] LABS: ABG PCO2 33.8 mmHg (35-45); ABG PH Result 7.48 (7.35-7.45); Alveolar-Arterial Oxygen Gradi 4.7 mmHg (5-10); Base Excess ABG 2.3 mmol/L (-2.0-2.0); Blood Gas Operator Identificat MBB; Blood Gas Sample Site Brachial, right; Blood Gas Sample Type Arterial; Carboxyhemoglobin 1.1 %THgb (0.4-20.1); HCO3 ABG 25.3 mmol/L (22-26); HGB O2 Sat 93.3 % (95-100); Ionized Calcium Level - ABG 1.1 mmol/L (1.1-1.4); Methemoglobin 0.9 % (0.4-1.5); Oxygen Device ROOM AIR; Oxygen Saturation ABG 95.2; PO2 ABG 71.1 mmHg (80.0-100.0); PO2 FiO2 Ratio Arterial Blood 338; Potassium Level - ABG 3.3 mmol/L (3.5-5.0); Total Hemoglobin 14.4 g/dL (14-18)
[2024-08-26 08:11] LABS: Troponin(5th) Baseline 15 ng/L (0-15)
[2024-08-26 08:12] LABS: INR 1.15 (0.8-1.2)
[2024-08-26 08:14] LABS: Acetaminophen 21.2 ug/mL (10-30); Alanine Aminotransferase 38 U/L (0-41); Albumin Level 3.6 g/dL (3.5-5.2); Alkaline Phosphatase 269 U/L (40-130); Anion Gap 22.7 (5-19); Aspartate Amino Transferase 132 U/L (0-40); Blood Urea Nitrogen 7 mg/dL (8-23); Calcium 9.3 mg/dL (8.5-10.5); Carbon Dioxide 19 mmol/L (22-29); Chloride 94 mmol/L (98-107); Globulin 2.7 g/dL (1.3-4.6); Glomerular Filtration Rate 136.5 mL/min (90-130); Glucose 119 mg/dL (65-115); Lipase 25 U/L (13-60); Osmolality Calculated 273 mOsm/kg (285-295); Potassium 3.7 mmol/L (3.5-5.1); Sodium 132 mmol/L (136-145); Total Bilirubin 3.7 mg/dL (0.15-1.2); Total Protein 6.3 g/dL (6.6-8.7)
[2024-08-26 08:16] LABS: Ammonia 37 umol/L (16-60); Lactic Sepsis W/Reflex 2.8 mmol/L (0.5-2.2)
[2024-08-26 08:17] LABS: Alcohol Level < 10 mg/dL (0-10); Creatinine Clr Calc Pharmacy 149.5852; Salicylate < 0.3 mg/dL (3-10)
[2024-08-26] MEDS: LORazepam 2 mg/mL INJ 1 mL 1 MG IVP (08:50)
--- NOTE | 2024-08-26 08:58 | CT_ITS ---
WS: [id number] CT ABDOMEN AND PELVIS WITH CONTRAST HISTORY: New liver lesions TECHNIQUE: Imaging performed of the abdomen and pelvis with IV contrast. Dual phase imaging of the abdomen. Coronal and sagittal reformats are submitted. All CT scans at [facility] use at least one of these dose optimization techniques: automated exposure control; mA and/or kV adjustment per patient size (includes targeted exams where dose is matched to clinical indication); or iterative reconstruction. IV CONTRAST: Omnipaque 350; 100 mL IV. Oral contrast: No DLP: 1186.27 mGy.cm COMPARISON: 08/26/[address] and prior CT 08/12/2024 Lower thorax: Lung bases are clear. Heart is normal size. Small hiatal hernia with fluid in the distal esophagus. Liver/biliary system: Severe decreased attenuation within the liver. A single focus in the subcapsular RIGHT lobe with intense enhancement measuring 4 mm. New areas of decreased attenuation with out significant wall enhancement in the RIGHT lobe of the liver closely associated with the gallbladder. There are several small collections with the largest measuring 2.3 x 2.4 cm in continuity with the gallbladder. Gallbladder: Well-distended. There is mild gallbladder wall enhancement. Pancreas: Normal size pancreas and pancreatic duct. No adjacent inflammation. Spleen: Normal size spleen. No mass or infarct. Adrenal glands: No change. Right kidney: Normal. Left kidney: No obstruction. Renal cysts. Aorta: Normal. Lymphadenopathy: None. Free fluid:Small amount of ascites persists.. GI tract:No obstruction.. Abdominal wall: Unremarkable abdominal wall. No hernia. Pelvis: Ascites. Nondistended bladder. Bones: Minimal T11 and T12 anterior wedging. CT/CT abdomen pelvis w con* [id number] IMPRESSION: 1. Multiple small low-attenuation masses with mild rim enhancement in contact with the gallbladder. There is also gallbladder wall enhancement. These are new since 08/12/2024. Favor small hepatic abscesses. May be secondary to acute chol ecystitis. At at this time there is mild gallbladder wall enhancement but no hy drops. 2. Additional intensely enhancing nodule subcapsular RIGHT lobe of the liver i s probably a hemangioma. 3. Hepatic steatosis. 4. Ascites, decreased since the paracentesis performed on the same day.
[2024-08-26 09:13] LABS: Cyto Order Verification No Order
[2024-08-26 09:18] LABS: Mononuclear #, Pertinoneal Fl 0.066 10^3/uL; Polynuclear # Cells, Perit 0.007 10^3/uL; RBC Pertioneal Fluid 0 10^3/uL; WBC Peritoneal Fluid 73 /uL
[2024-08-26 09:19] LABS: Color, Peritoneal Fluid Pale Yellow (Pale Yellow)
--- NOTE | 2024-08-26 09:19 | ECG_ITS ---
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[id number] Requested By: James Acevedo Order Number: [id number] Reading MD: SUDHAKAR RICHARDS Measurements Intervals [place] Rate: 96 P: 64 CO: 152 QRS: -58 QRSD: 109 T: 58 QT: 376 QTc: 477 Interpretive Statements SINUS RHYTHM WITH OCCASIONAL VENTRICULAR PREMATURE COMPLEXES INCOMPLETE RIGHT BUNDLE BRANCH BLOCK [90+ ms QRS DURATION, TERMINAL R IN V1/V2, 40+ ms S IN I/aVL/V4/V5/V6] LEFT ANTERIOR FASCICULAR BLOCK [QRS AXIS <= -45, QR IN I, RS IN II] Compared to ECG 08/26/2024 07:33:08 Ventricular premature complex(es) now present Sinus tachycardia no longer present ST (T wave) deviation no longer present Electronically Signed On 08-26-2024 21:00:53 CDT by SUDHAKAR RICHARDS [id number]
[2024-08-26 09:20] LABS: Appearance, Peritoneal Fluid Hazy (Clear)
[2024-08-26 09:30] LABS: Reflex Lactate Order REFLEX LACTIC ORDERD
[2024-08-26] MEDS: piperacillin-tazobactam 3.375 GM in sodium chloride 0.9% (plus) 50 ML IV ×2 (09:49→18:50)
[2024-08-26] MEDS: iohexol 350 mg/mL 500 mL Btl (per mL) IV (10:31)
[2024-08-26 10:58] LABS: Bilirubin Urine Negative (Negative); Blood Urine Negative (Negative); Glucose Urine UA Negative (Normal); Ketones Urine Trace (Negative); Leukocyte Esterase Urine Negative (Negative); Nitrate Urine Negative (Negative); Protein Urine Trace (Negative); Urine Appearance Clear (CLEAR); Urine Color Yellow (Yellow); Urobilinogen Urine 0.2 mg/dL (Negative); pH Urine 6.5 (5-7)
[2024-08-26 11:06] LABS: Add Urine Microscopic? YES; Bacteria Urine None Seen /hpf; Hyaline Casts Urine 0-4 /lpf; RBC Urine 0-2 /hpf (0-2); Squamous Epithelial Cell Urine 0-5 /hpf (0-5); WBC Urine 0-5 /hpf (0-5)
[2024-08-26 11:55] LABS: Add Urine Culture? No
--- NOTE | 2024-08-26 13:33 | ECG_ITS ---
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[id number] Requested By: James Acevedo Order Number: [id number] Reading MD: SUDHAKAR RICHARDS Measurements Intervals [place] Rate: 94 P: 68 CT: 152 QRS: -66 QRSD: 109 T: 66 QT: 393 QTc: 494 Interpretive Statements SINUS RHYTHM PATTERN CONSISTENT WITH PULMONARY DISEASE INCOMPLETE RIGHT BUNDLE BRANCH BLOCK [90+ ms QRS DURATION, TERMINAL R IN V1/V2, 40+ ms S IN I/aVL/V4/V5/V6] LEFT ANTERIOR FASCICULAR BLOCK [QRS AXIS <= -45, QR IN I, RS IN II] NONSPECIFIC T-WAVE ABNORMALITY Compared to ECG 08/26/2024 09:19:34 T-wave abnormality now present Ventricular premature complex(es) no longer present Electronically Signed On 08-26-2024 21:00:35 CDT by SUDHAKAR RICHARDS [email or web address]
[2024-08-26 14:31] LABS: Troponin 5 6HR 15.07 ng/L (0-15); Troponin 5 6HR Delta 0.07 ng/L (0-12)
[2024-08-27] VITALS: BP 112/74; PULSE 82; RESP 17; O2SAT 94
[2024-08-27 00:10] VITALS: BP 112/74; PULSE 77; O2SAT 94
== END 2024-08-27 00:12 | disposition short-term general hospital (02) ==
PROVIDERS: Emergency Provider Family Medicine
DX: K75.0 Abscess of liver (principal); K70.31 Alcoholic cirrhosis of liver with ascites; K81.0 Acute cholecystitis
CPT/HCPCS: 36415; 36600; 49083; 71045; 74176; 74177; 80051; 80053; 80307; 80503; 81001; 82140; 82330; 82805; 83605; 83690; 84484; 85025; 85610; 87040; 87070; 87075; 87205; 89050; 93005; 96365; 96366; 96375; 99285; J2060; J2543

== ENCOUNTER 2024-09-16 08:52 | Inpatient (IN) | payer SELFPAY ==
[2024-09-16] VITALS (29 sets, daily range): BP systolic 70–151; BP diastolic 47–102; PULSE 62–139; RESP 15–26; TEMP 36.8–37.3; O2SAT 86–97
--- NOTE | 2024-09-16 08:56 | ECG_ITS ---
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 Measurements Intervals [place] Rate: 128 P: 83 VA: 153 QRS: -65 QRSD: 108 T: 72 QT: 361 QTc: 528 Interpretive Statements SINUS TACHYCARDIA LOW QRS VOLTAGE IN PRECORDIAL LEADS [QRS DEFLECTION < 1.0 mV IN CHEST LEADS] INCOMPLETE RIGHT BUNDLE BRANCH BLOCK [90+ ms QRS DURATION, TERMINAL R IN V1/V2, 40+ ms S IN I/aVL/V4/V5/V6] LEFT ANTERIOR FASCICULAR BLOCK [QRS AXIS <= -45, QR IN I, RS IN II] POSSIBLE ANTERIOR MYOCARDIAL INFARCTION , PROBABLY OLD [30 ms Q WAVE IN V3/V4, OR R < 0.2 mV IN V4] Compared to ECG 08/26/2024 13:29:00 Low QRS voltage now present Myocardial infarct finding now present Sinus rhythm no longer present T-wave abnormality no longer present Electronically Signed On 09-17-2024 06:29:05 CDT by Junior Downs M.D. [email or web address]
--- NOTE | 2024-09-16 09:10 | XRR_ITS ---
PROCEDURE INFORMATION: Exam: XR Chest Exam date and time: 09/16/2024 9:40 AM Age: 64 years old Clinical indication: Cough and dyspnea; Additional info: Dyspnea/cough TECHNIQUE: Imaging protocol: Radiologic exam of the chest. Views: 1 view. COMPARISON: CR XR chest 1V portable [id number] 08/26/2024 7:42 AM FINDINGS: Lungs: Subtle increased interstitial opacities are seen in the left lower hemithorax, findings could represent atelectasis left basilar pneumonitis can not be excluded. Pleural spaces: Unremarkable. No pleural effusion. No pneumothorax. Heart/Mediastinum: Unremarkable. No cardiomegaly. Bones/joints: Unremarkable. XR/XR chest 1V portable [id number] IMPRESSION: Interstitial opacities in the left lower hemithorax may represent atelectasis although left basilar pneumonitis can not be excluded.
[2024-09-16 09:44] LABS: Basophils % 0.1 %; Hematocrit 44.7 % (37-53); Lymphocytes # 0.2 10^3/uL (0.8-4.8); Lymphocytes % 1.9 %; Mean Corpuscular HGB Conc 33.1 g/dL (30-55); Mean Corpuscular Hemoglobin 32.1 pg (27-33); Mean Platelet Volume 10.2 fL (7.4-10.4); Neutrophils % 87.4 %; Nucleated Red Blood Cells % 0 %; Platelet Count 134 10^3/cmm (157-399); Red Blood Count 4.61 10^6/uL (3.85-5.65); White Blood Count 9.61 10^3/uL (3.29-11.43)
[2024-09-16 10:01] LABS: Alanine Aminotransferase 80 U/L (0-41); Albumin Level 3.3 g/dL (3.5-5.2); Alcohol Level 157 mg/dL (0-10); Alkaline Phosphatase 457 U/L (40-130); Anion Gap 37.1 (5-19); Aspartate Amino Transferase 351 U/L (0-40); Blood Urea Nitrogen 17 mg/dL (8-23); Calcium 8.8 mg/dL (8.5-10.5); Carbon Dioxide 11 mmol/L (22-29); Chloride 94 mmol/L (98-107); Creatine Phosphokinase 133 U/L (39-308); Creatinine Clr Calc Pharmacy 82.9826; Globulin 3.1 g/dL (1.3-4.6); Glomerular Filtration Rate 61.3 mL/min (90-130); Glucose 160 mg/dL (65-115); Osmolality Calculated 291 mOsm/kg (285-295); Potassium 4.1 mmol/L (3.5-5.1); Sodium 138 mmol/L (136-145); Total Bilirubin 3.6 mg/dL (0.15-1.2); Total Protein 6.4 g/dL (6.6-8.7)
[2024-09-16 10:02] LABS: Glucose Point of Care 237 mg/dL (70-110)
--- NOTE | 2024-09-16 10:02 | CT_ITS ---
WS: [id number] CT HEAD TECHNIQUE: Noncontrast CT of the head obtained from the skullbase to the vertex. CLINICAL INFORMATION: fall COMPARISON: 08/07/2024 DLP: 1402.[address] scans at [facility] use at least one of these dose optimization techniques: automated exposure control; mA and/or kV adjustment per patient size (includes targeted exams where dose is matched to clinical indication); or iterative reconstruction. FINDINGS: No evidence of intracranial hemorrhage or mass effect. Ventricular system and basal cisterns are patent. Mild small vessel changes with mild parenchymal volume loss. No extra-axial fluid collections. No evidence of mass or mass effect. Vascular calcification Paranasal sinuses and mastoid air cells are well aerated. .Normal visualized soft tissues. CT/CT head wo con* [id number] IMPRESSION: 1. No evidence of intracranial hemorrhage or mass effect. 2. No acute intracranial findings.
--- NOTE | 2024-09-16 10:02 | CT_ITS ---
WS: [id number] CT CERVICAL TRAUMA TECHNIQUE: Noncontrast CT of the cervical spine with coronal and sagittal reformatted images. CLINICAL INFORMATION: trauma COMPARISON: None. DLP: 1402.[address] scans at [facility] use at least one of these dose optimization techniques: automated exposure control; mA and/or kV adjustment per patient size (includes targeted exams where dose is matched to clinical indication); or iterative reconstruction. FINDINGS: Straightening of the normal cervical lordosis. Mild spondylitic changes. Normal craniocervical junction. Normal C1-C2 articulation. Dens is normal in appearance. Normal occipital condyles. No high-grade spinal canal narrowing. Normal C1 ring. No evidence of acute fracture or dislocation. Normal prevertebral soft tissues. Mastoids air cells are well aerated. CT/CT cervical spin wo con* [id number] IMPRESSION: 1. No evidence of acute fracture or dislocation. 2. Mild spondylitic changes.
[2024-09-16 10:04] LABS: Acetaminophen < 5.0 ug/mL (10-30); Salicylate < 0.3 mg/dL (3-10)
--- NOTE | 2024-09-16 10:14 | PC.PHAR ---
Pt could not remember what medications he has been on previously. Left med list from 07/12/24 30ds-nothing else filled since.
[2024-09-16 10:27] LABS: Ammonia 63 umol/L (16-60)
[2024-09-16 10:33] LABS: Lipase 65 U/L (13-60)
--- NOTE | 2024-09-16 10:37 | CT_ITS ---
WS: [id number] CTA CHEST ABDOMEN AND PELVIS TECHNIQUE: Contrast enhanced CTA of the chest, followed by abdomen, and pelvis with coronal and sagittal reformatted images and additional MIP Images. CLINICAL INFORMATION: Possible aspiration pneumonia hypoxia tachycardia prolonged COMPARISON: CT abdomen pelvis 08/26/2024 DLP: 1593.[address] scans at [facility] use at least one of these dose optimization techniques: automated exposure control; mA and/or kV adjustment per patient size (includes targeted exams where dose is matched to clinical indication); or iterative reconstruction. FINDINGS: Proximal main pulmonary arteries are normal. Some images graded by respiratory artifact. No evidence of pulmonary embolus. Normal caliber thoracic aorta. Lungs are well aerated. No acute pulmonary infiltrates. No focal pneumonia or pleural fluid. Shallow inspiration. No axillary lymphadenopathy. Cirrhotic liver. Normal size spleen. Portal vein appears patent. Diffuse heterogeneous enhancement throughout the liver. Small low-attenuation lesions about the gallbladder previously thought to represent small abscesses are similar in appearance. No evidence of progression. Mild gallbladder wall thick ening with enhancement. Perihepatic and perisplenic ascites. Mild abdominal and pelvic ascites. Small esophageal hiatal hernia. LEFT adrenal nodule likely adenoma. LEFT renal cyst. No hydronephrosis in either kidney. Normal sigmoid colon. Normal pancreatic parenchymal enhancement. Normal caliber abdominal aorta. Celiac and SMA are patent. Fat-containing LEFT inguinal hernia. Tiny fat-containing umbilical hernia. CT/CT angio chest w abd pel w con IMPRESSION: 1. Diffuse cirrhotic liver with hepatic congestion. 2. Previously described suspected abscesses about the gallbladder are similar in appearance. No evidence of progression. 3. Mild abdominal and pelvic ascites. 4. No acute chest findings 5. No acute pulmonary infiltrates 6. No evidence of pulmonary embolus
--- NOTE | 2024-09-16 10:38 | W.ED.PSYCHS ---
HPI - Psych General: Chief Complaint: Psychiatric Symptoms Stated Complaint: N/V , Weakness,Anxiety Time Seen by Provider: 09/16/24 09:05 History of Present Illness: 64-year-old male presents emergency room via ambulance he had a fall sometime last night associated with his drinking had a prolonged downtime. Patient been drinking heavily he is a known alcoholic. On arrival here 1 screened by nursing he did not, and he said he is suicidal but does not have a specific plan does that he would kill himself by committing suicide. He is encephalopathic complains of some mild abdominal discomfort he is tachycardic. Difficult to get history from. Related Data Home Medications ?Medication ?Instructions ?Recorded ?Confirmed multivitamin with folic acid 400 1 tab PO DAILY 08/12/24 09/16/24 mcg tablet (Tab-A-Tad) Previous Rx's ?Medication ?Instructions ?Recorded escitalopram oxalate 20 mg tablet 20 mg PO DAILY 30 days #30 tabs 07/12/24 folic acid 1 mg tablet 1 mg PO DAILY #30 tabs 07/12/24 pantoprazole 40 mg tablet,delayed 40 mg PO DAILY 30 days #30 tabs 07/12/24 release quetiapine 100 mg tablet 100 mg PO .at night 30 days #30 07/12/24 tabs thiamine mononitrate (vit B1) 100 100 mg PO DAILY #30 tabs 07/12/24 mg tablet (Vitamin B-1 (mononitrate)) Allergies Allergy/AdvReac Type Severity Reaction Status Date / Time No Known Allergies Allergy Verified 08/07/24 14:36 Review of Systems Const: Denies: fever(s) or chills Card: Denies: chest pain Resp: Denies: dyspnea GI: Denies: abdominal pain : Denies: dysuria, urinary frequency or urinary urgency Musc: Denies: neck pain or back pain Skin/Breast: Denies: rash PFSH ED PFSH: Medical History ALC (alcoholic liver cirrhosis) Physical Exam Const: GENERAL APPEARANCE: cooperative and lethargic ORIENTATION/CONSCIOUSNESS: Yes confused and Yes lethargic HENMT: COMMON NORMALS: normocephalic, atraumatic and hearing grossly normal bilaterally HEAD & SCALP: normocephalic and atraumatic Resp: COMMON NORMALS: normal respiratory effort, No retractions, No use of accessory muscles and clear to auscultation bilaterally AUSCULTATION: clear to auscultation bilaterally Cardio: COMMON NORMALS: regular rate, regular rhythm and No murmurs present (Cardio) RATE: regular rate RHYTHM: regular rhythm GI: COMMON NORMALS: Soft to palpation and No hepatosplenomegaly present AUSCULTATION: Yes normoactive bowel sounds PALPATION: Yes Soft to palpation, No Tenderness to palpation present (GI), No Guarding due to palpation present (GI) and Yes No hepatosplenomegaly present Extremity: COMMON NORMALS: normal to inspection, capillary refill normal, no clubbing, cyanosis or edema, no calf tenderness and no pedal edema Neuro: SENSORIUM/ORIENTATION: Yes lethargic Skin: OTHER: Ecchymosis scattered about the legs and arms as well as the trunk and lateral chest wall on the left left abdomen and left chest wall bruising appear new as well as some on the arms on the legs there is bruising of multiple different degrees of resolution Course Vital Signs: Vital signs: Vital Signs Temperature 98.2 F 09/16/24 09:03 Pulse Rate 138 H 09/16/24 16:53 Respiratory Rate 16 09/16/24 09:03 Blood Pressure 141/91 09/16/24 16:53 Pulse Oximetry 93 09/16/24 16:53 Oxygen Delivery Me thod Room Air 09/16/24 16:53 MDM - Psych Medical Decision Making Concerning findings on the imaging done. We had previously transferred this patient because of concern of cholecystitis with adjacent abscesses. He was transferred to [facility] in [place] imaging today shows a similar appearance. In talking to him it sounds like they did a paracentesis which we had done here prior to him being transferred but he does not really relate anything they did for this when he was there they did not do a cholecystectomy. Patient is intoxicated. He has some metabolic encephalopathy concerned he may have SBP. He is cultured and started on antibiotics. It took several hours eventually we were able to get the records from [facility] that showed that there is areas of concern on our CT imaging are foci of steatohepatitis. Essentially these are fat deposits adjacent to the gallbladder. Their recommendation was for follow-up MRI in 6 months if there was further concern. Did also done an EGD while he was there he had no esophageal or gastric varices. He is not having any signs of upper GI bleed now. Discussed with the hospitalist will admit to ICU he is on a CIWA protocol. He started antibiotics and they will continue him. Medical Records I reviewed the patient's medical records. Reviewed records from outside hospital [facility] Lab Data I reviewed the patient's lab results. 09/16/24 09:36 09/16/24 16:01 Radiology Impressions Chest X-Ray 09/16/24 09:10 IMPRESSION: Interstitial opacities in the left lower hemithorax may represent atelectasis although left basilar pneumonitis can not be excluded. Cervical Spine CT 09/16/24 10:02 IMPRESSION: 1. No evidence of acute fracture or dislocation. 2. Mild spondylitic changes. Head CT 09/16/24 10:02 IMPRESSION: 1. No evidence of intracranial hemorrhage or mass effect. 2. No acute intracranial findings. Chest/Abdomen/Pelvis CT 09/16/24 10:37 IMPRESSION: 1. Diffuse cirrhotic liver with hepatic congestion. 2. Previously described suspected abscesses about the gallbladder are similar in appearance. No evidence of progression. 3. Mild abdominal and pelvic ascites. 4. No acute chest findings 5. No acute pulmonary infiltrates 6. No evidence of pulmonary embolus Liver Ultrasound 09/16/24 11:47 IMPRESSION: Technically difficult study due to bowel gas and ascites. Unable to evaluate the main portal vein, aorta, and IVC 1. Cirrhotic liver with small volume ascites. 2. Low-attenuation lesions about the gallbladder fossa not seen on this study. 3. Mild gallbladder wall thickening measuring 4 mm. This may be due to liver disease. 4. No hydronephrosis in the RIGHT kidney. Laboratory Results WBC 9.61 10^3/uL (3.29-11.43) 09/16/24 09:36 RBC 4.61 10^6/uL (3.85-5.65) 09/16/24 09:36 Hgb 14.80 g/dL (11.27-16.99) 09/16/24 09:36 Hct 44.7 % (37-53) 09/16/24 09:36 MCV 97.0 fl (82-101) 09/16/24 09:36 MCH 32.1 pg (27-33) 09/16/24 09:36 MCHC 33.1 g/dL (30-55) 09/16/24 09:36 RDW 15.0 % (12.1-15.1) 09/16/24 09:36 Plt Count 134 10^3/cmm (157-399) L 09/16/24 09:36 MPV 10.2 fL (7.4-10.4) 09/16/24 09:36 Neut % (Auto) 87.4 % 09/16/24 09:36 Lymph % (Auto) 1.9 % 09/16/24 09:36 [place]ulloch % (Auto) 10.0 % 09/16/24 09:36 Eos % (Auto) 0.0 % 09/16/24 09:36 Baso % (Auto) 0.1 % 09/16/24 09:36 Neut # (Auto) 8.40 10^3/uL (1.8-7.7) H 09/16/24 09:36 Lymph # (Auto) 0.2 10^3/uL (0.8-4.8) L 09/16/24 09:36 [place]ull[place] # (Auto) 1.0 10^3/uL (0.2-0.9) H 09/16/24 09:36 Eos # (Auto) 0.0 10^3/uL (0.0-0.8) 09/16/24 09:36 Baso # (Auto) 0.0 10^3/uL (0.0-0.1) 09/16/24 09:36 Nucleated RBC % (auto) 0 % 09/16/24 09:36 Nucleated RBCs # 0.0 /100WBC 09/16/24 09:36 Specimen Type Arterial 09/16/24 15:40 Sample Site Brachial, left 09/16/24 15:40 ABG pH 7.42 (7.35-7.45) 09/16/24 15:40 ABG pCO2 26.2 mmHg (35-45) L 09/16/24 15:40 ABG pO2 83.0 mmHg (80.0-100.0) 09/16/24 15:40 ABG PO2/FiO2 Ratio 395 09/16/24 15:40 ABG HCO3 17.1 mmol/L (22-26) L 09/16/24 15:40 ABG O2 Saturation 96.7 09/16/24 15:40 ABG Base Excess -5.9 mmol/L (-2.0-2.0) L 09/16/24 15:40 Bunny Test N/a 09/16/24 15:40 A-a O2 Gradient 4.1 mmHg (5-10) L 09/16/24 15:40 Hematocrit 37.9 % (42-52) L 09/16/24 15:40 Hgb O2 Saturation 95.4 % (95-100) 09/16/24 15:40 Carboxyhemoglobin 0.9 %THgb (0.4-20.1) 09/16/24 15:40 Methemoglobin 0.4 % (0.4-1.5) 09/16/24 15:40 Total Hemoglobin 12.4 g/dL (14-18) L 09/16/24 15:40 Sodium 137.0 mmol/L (131-143) 09/16/24 15:40 Potassium 3.7 mmol/L (3.5-5.0) 09/16/24 15:40 Glucose 106.0 mg/dL (70-115) 09/16/24 15:40 Ionized Calcium 1.1 mmol/L (1.1-1.4) 09/16/24 15:40 O2 Delivery Device Room air 09/16/24 15:40 FiO2 21.0 % 09/16/24 15:40 Planned Giving Officer ID [facility] 09/16/24 15:40 Sodium 138 mmol/L (136-145) 09/16/24 16:01 Potassium 4.0 mmol/L (3.5-5.1) 09/16/24 16:01 Chloride 101 mmol/L (98-107) 09/16/24 16:01 Carbon Dioxide 16 mmol/L (22-29) L 09/16/24 16:01 Anion Gap 25.0 (5-19) H 09/16/24 16:01 BUN 15 mg/dL (8-23) 09/16/24 16:01 Creatinine 1.0 mg/dL (0.7-1.2) 09/16/24 16:01 GFR Calculation 75.7 mL/min (90-130) L 09/16/24 16:01 Glucose 105 mg/dL (65-115) 09/16/24 16:01 POC Glucose 237 mg/dL (70-110) H 09/16/24 10:00 Calculated Osmolality 287 mOsm/kg (285-295) 09/16/24 16:01 Lactic Acid 13.0 mmol/L (0.5-2.2) H* 09/16/24 09:36 Lactic Acid (Sepsis) 9.7 mmol/L (0.5-2.2) H* 09/16/24 12:25 Calcium 7.7 mg/dL (8.5-10.5) L 09/16/24 16:01 Total Bilirubin 2.9 mg/dL (0.15-1.2) H 09/16/24 16:01 AST 292 U/L (0-40) H 09/16/24 16:01 ALT 67 U/L (0-41) H 09/16/24 16:01 Alkaline Phosphatase 362 U/L (40-130) H 09/16/24 16:01 Ammonia 63 umol/L (16-60) H 09/16/24 09:36 Creatine Kinase 133 U/L (39-308) 09/16/24 09:36 Total Protein 5.3 g/dL (6.6-8.7) L 09/16/24 16:01 Albumin 2.7 g/dL (3.5-5.2) L 09/16/24 16:01 Globulin 2.6 g/dL (1.3-4.6) 09/16/24 16:01 Lipase 65 U/L (13-60) H 09/16/24 09:36 Urine Color Dark yellow (Yellow) A 09/16/24 12:20 Urine Appearance Cloudy (CLEAR) A 09/16/24 12:20 Urine pH 5.5 (5-7) 09/16/24 12:20 Ur Specific [place] 1.049 (1.005-1.030) H 09/16/24 12:20 Urine Protein 2+ (Negative) A 09/16/24 12:20 Urine Glucose (UA) Negative (Normal) 09/16/24 12:20 Urine Ketones Trace (Negative) 09/16/24 12:20 Urine Blood Negative (Negative) 09/16/24 12:20 Urine Nitrate Negative (Negative) 09/16/24 12:20 Urine Bilirubin 2+ (Negative) H 09/16/24 12:20 Urine Urobilinogen 1.0 mg/dL (Negative) 09/16/24 12:20 Ur Leukocyte Esterase Trace (Negative) A 09/16/24 12:20 Urine RBC 3-5 /hpf (0-2) 09/16/24 12:20 Urine WBC 5-10 /hpf (0-5) H 09/16/24 12:20 Ur Squamous Epith Cells None /hpf (0-5) 09/16/24 12:20 Amorphous Sediment Not Reportable 09/16/24 12:20 Urine Bacteria 1+ /hpf (NONE) H 09/16/24 12:20 Hyaline Casts 5-10 /lpf H 09/16/24 12:20 Coarse Granular Casts 0-4 /lpf H 09/16/24 12:20 Fluid Color Pale yellow 09/16/24 15:15 Fluid Appearance Clear 09/16/24 15:15 Fluid WBC 56 /uL 09/16/24 15:15 Fluid RBC 0 10^3/uL 09/16/24 15:15 Fld Polynuclear WBCs # 0.011 09/16/24 15:15 Fld Polynuclear WBCs % 19.600 % 09/16/24 15:15 Fl Mononucl WBCs #(Auto) 0.045 09/16/24 15:15 Fl Mononuclear % Auto 80.400 % 09/16/24 15:15 Fld Crystal Laterality TNP 09/16/24 15:15 Salicylates < 0.3 mg/dL (3-10) L 09/16/24 09:36 Acetaminophen < 5.0 ug/mL (10-30) L 09/16/24 09:36 Ethyl Alcohol 157 mg/dL (0-10) H 09/16/24 09:36 All radiology interpretation(s) finalized by discharge Discharge Plan Discharge Patient Disposition: Admitted As Inpatient Admit Provider: Shefali Hood Clinical Impression: SBP (spontaneous bacterial peritonitis), Sepsis, Acute metabolic encephalopathy, Acute psychosis, Alcoholic cirrhosis of liver Condition: Stable Coding Level of Care Code ED Nursing Informatics Specialist for Atif Mendes
[2024-09-16] MEDS: iohexol 350 mg/mL 500 mL Btl (per mL) IV (10:50)
[2024-09-16] MEDS: pantoprazole 40 mg SDV 80 MG IVP (11:33)
--- NOTE | 2024-09-16 11:47 | US_ITS ---
WS: [id number] ULTRASOUND ABDOMEN LIMITED CLINICAL INFORMATION: abnormal ct abd FINDINGS: Liver Size: Cirrhotic Echogenicity: Coarse Surface nodularity: Nodular Mass (size and location): None. Bile ducts Intrahepatic ducts: Normal. Common bile duct diameter: Not visualized Gallbladder Mild gallbladder wall thickening Gallstones: None. Gallbladder sludge: None. Pancreas Not well visualized Right kidney: Normal. Hydronephrosis: None. Size: 10.6 cm x 5.7 cm x 5.3 cm. US/US liver [id number] IMPRESSION: Technically difficult study due to bowel gas and ascites. Unable to evaluate the main portal vein, aorta, and IVC 1. Cirrhotic liver with small volume ascites. 2. Low-attenuation lesions about the gallbladder fossa not seen on this study. 3. Mild gallbladder wall thickening measuring 4 mm. This may be due to liver d isease. 4. No hydronephrosis in the RIGHT kidney.
--- NOTE | 2024-09-16 11:52 | US_ITS ---
WS: [id number] ULTRASOUND-GUIDED THERAPEUTIC AND DIAGNOSTIC PARACENTESIS Procedure, risks, and complications have been explained to the patient. Consent is obtained. Utilizing aseptic technique and 1% buffered lidocaine, a small dermatome was made through which a 5 [place] Yueh catheter was inserted. Approximately 3500 ml of clear peritoneal fluid was obtained without difficulty. No complications encountered. Specimen collected for analysis. US/US paracentesis abd w [id number] IMPRESSION: Uncomplicated paracentesis yielding 3500 ml of peritoneal fluid.
[2024-09-16 11:57] LABS: Reflex Lactate Order REFLEX LACTIC ORDERD
[2024-09-16] MEDS: piperacillin-tazobactam 3.375 GM in sodium chloride 0.9% (plus) 50 ML IV (12:08)
[2024-09-16 12:31] LABS: Bilirubin Urine 2+ (Negative); Blood Urine Negative (Negative); Glucose Urine UA Negative (Normal); Ketones Urine Trace (Negative); Leukocyte Esterase Urine Trace (Negative); Nitrate Urine Negative (Negative); Protein Urine 2+ (Negative); Urine Appearance Cloudy (CLEAR); Urine Color Dark Yellow (Yellow); pH Urine 5.5 (5-7)
[2024-09-16 12:34] LABS: Add Urine Microscopic? YES
[2024-09-16 12:45] LABS: Specific Gravity, Urine 1.049 (1.005-1.030)
[2024-09-16 12:46] LABS: Bacteria Urine 1+ /hpf; UA Manual Slide Review YES
[2024-09-16 12:48] LABS: Add Urine Culture? No; Coarse Granular Casts Urine 0-4 /lpf
[2024-09-16 12:56] LABS: Lactic Acid level (Lactate) 9.7 mmol/L (0.5-2.2)
--- NOTE | 2024-09-16 12:56 | PC.NURSE ---
PATIENT REPORTED TO BIANCA JAY (1:1 SITTER) THAT HE WAS TYING A ROPE WITH BLANKET. PATIENT DETERRED FROM TYING ROPE AND INSTRUCTED TO STOP TYING A ROPE. PATIENT STOPPED TYING THE ROPE.
[2024-09-16] MEDS: LORazepam 1 MG/0.5 ML injection 2 MG IVP ×2 (15:37→16:52)
[2024-09-16 15:39] LABS: Apprearance, Body Fluid CLEAR; Color, Body Fluid PALE YELLOW
[2024-09-16 15:40] LABS: Cyto Order Verification No Order
[2024-09-16 15:44] LABS: Body Fluid Polynuclear #Cells 0.011; Body Fluid WBC 56 /uL; Monocytes # Body Fluid 0.045; RBC, Body Fluid 0 10^3/uL
[2024-09-16 15:51] LABS: ABG PCO2 26.2 mmHg (35-45); ABG PH Result 7.42 (7.35-7.45); Alveolar-Arterial Oxygen Gradi 4.1 mmHg (5-10); Arterial Blood Gas Hematocrit 37.9 % (42-52); Base Excess ABG -5.9 mmol/L (-2.0-2.0); Blood Gas Operator Identificat AMH; Blood Gas Sample Site Brachial, left; Blood Gas Sample Type Arterial; Carboxyhemoglobin 0.9 %THgb (0.4-20.1); HCO3 ABG 17.1 mmol/L (22-26); HGB O2 Sat 95.4 % (95-100); Ionized Calcium Level - ABG 1.1 mmol/L (1.1-1.4); Methemoglobin 0.4 % (0.4-1.5); Oxygen Device ROOM AIR; Oxygen Saturation ABG 96.7; PO2 FiO2 Ratio Arterial Blood 395; Potassium Level - ABG 3.7 mmol/L (3.5-5.0); Total Hemoglobin 12.4 g/dL (14-18)
--- NOTE | 2024-09-16 16:04 | PM.HP ---
Providers/Chief Complaint Admitting Physician: Shefali Hood MD Chief Complaint: N/V , Weakness,Anxiety History of Present Illness Héctor Jacobs is a 64 year old male He was recently moved into the [place] area. Patient states that he is a daily chronic controlled. He was admitted here in June 2024 for issues related to alcohol intoxication and then withdrawal and suicidal ideation. Patient brought into the emergency room today after having been found down at home. he states he lives with his mother. he has been lethargic and confused. At the time of my assessment today patient was noted to be confused, restless, attempting to climb out of bed. He is exhibiting signs of alcohol withdrawal with high CIWA scores. He is also noted to have ascites and has undergone paracentesis today in the emergency room due to concerns for SBP. Cell count from the fluid is currently pending at the time of this evaluation. He has received Ativan 2 mg IV push in the last hour, however still has CIWA score of 1-14. Additionally has evidence of hepatic encephalopathy with ammonia levels. Review of Systems General: Reports: ROS unobtainable due to mental status Medications/Allergies Home Medications ?Medication ?Instructions ?Recorded ?Confirmed ?Last Taken ?Type escitalopram oxalate 20 mg tablet 20 mg PO DAILY 30 days #30 tabs 07/12/24 09/16/24 08/25/24 Rx folic acid 1 mg tablet 1 mg PO DAILY #30 tabs 07/12/24 09/16/24 08/25/24 Rx pantoprazole 40 mg tablet,delayed 40 mg PO DAILY 30 days #30 tabs 07/12/24 09/16/24 08/25/24 Rx release quetiapine 100 mg tablet 100 mg PO .at night 30 days #30 07/12/24 09/16/24 08/25/24 Rx tabs thiamine mononitrate (vit B1) 100 100 mg PO DAILY #30 tabs 07/12/24 09/16/24 08/25/24 Rx mg tablet (Vitamin B-1 (mononitrate)) multivitamin with folic acid 400 1 tab PO DAILY 08/12/24 09/16/24 08/25/24 History mcg tablet (Tab-A-Tad) Allergies Allergy/AdvReac Type Severity Reaction Status Date / Time No Known Allergies Allergy Verified 08/07/24 14:36 PFSH Acute PFSH: Medical History ALC (alcoholic liver cirrhosis) Vitals/I&O/Wt Last Vital Signs Temp 98.2 F 09/16/24 09:03 Pulse 125 H 09/16/24 15:07 Resp 16 09/16/24 09:03 BP 151/100 09/16/24 15:07 Pulse Ox 95 09/16/24 15:07 O2 Del Method Room Air 09/16/24 15:07 09/16/24 09/16/24 09/16/24 06:59 14:59 22:59 Intake Total 50 / 50 Balance 50 / 50 Weight last 48 hrs Weight 113.398 kg Physical Exam Narrative: General: restless, agitated, attempting to climb out of bed. HEENT: PERRLA, pupils bilaterally equal and reactive, pallors not present Chest: Normal vesicular breath sounds, no added sounds, equal good air entry bilaterally CVS: S1-S2 regular, no murmurs, no tachycardia, no gallops, no rubs Abdomen: Soft, nontender, no organomegaly, bowel sounds present Neuro: No focal deficits,moves all extrenities no facial deformity, AO x1, restless Data 09/16/24 09:36 09/16/24 16:01 Micro: Microbiology 09/16/24 11:19 Blood Culture - Preliminary Blood SPECIMEN COLLECTED 09/16/24 11:19 Blood Culture - Preliminary Blood SPECIMEN COLLECTED A&P Assessment and plan (1) Alcohol withdrawal: (2) Alcoholic cirrhosis of liver: (3) Encephalopathy, hepatic: (4) Anasarca: (5) SBP (spontaneous bacterial peritonitis): (6) Lactic acidosis: (7) Decompensated cirrhosis: Plan 64M with alcoholic cirrhosis currently getting admitted for decompensated cirrhosis, hepatic encephalopathy and alcohol withdrawal with concerns for SBP. Admit to ICu in view of alcohol withdrawal Start precedex gtt as patient shows signs of alchol withdrawal in spite of prn ativan per sliding scale CIWA monitoring and prn ativan per CIWA protocol lactulose 20gm q6h titarted to 2-3 BM and rifaximin 600mg BID for hepatic encephalopathy monitor neuro status s/p paracentesis in ED with 3.5 L removed, pending cell count to assess for SBP iv ceftriaxone 1gm iv every 24 hrs for SBP while pending results. noted eranged LFTs , chronic related to alcoholic cirrhosis 96 hr hold as patient reported SI in the ER several noted abrasions with scabs all over, appears to have been sustained from falls at home. Brusing over right abdominal wall and lower chest, CT chest without intraperitoneal bleed. Recently admitted at OSH for suspected liver abscesses, per discussion with ERP, this was eventually deemed not to be liver abscess after a ? liver biopsy, requested records. DVT ppx: heparin 5000 s/c full code PDMP PDMP Reviewed: Not Reviewed Attestations Medical Necessity Statement*: > 2 midnight stay anticipated Coding Level of Care Code Acute Code for Chg Fwd High MDM includes number and complexity of problems actively addressed during encounter, amount and/or complexity of data reviewed/ordered and described risk of complication, morbidity or mortality of management as documented Diagnoses Alcohol withdrawal F10.939 Alcoholic cirrhosis of liver K70.30 Encephalopathy, hepatic K76.82 Anasarca R60.1 SBP (spontaneous bacterial peritonitis) K65.2 Lactic acidosis E87.20 Decompensated cirrhosis K72.90; K74.60
[2024-09-16 16:31] LABS: Alanine Aminotransferase 67 U/L (0-41); Albumin Level 2.7 g/dL (3.5-5.2); Alkaline Phosphatase 362 U/L (40-130); Aspartate Amino Transferase 292 U/L (0-40); Blood Urea Nitrogen 15 mg/dL (8-23); Calcium 7.7 mg/dL (8.5-10.5); Carbon Dioxide 16 mmol/L (22-29); Chloride 101 mmol/L (98-107); Creatinine Clr Calc Pharmacy 99.5791; Globulin 2.6 g/dL (1.3-4.6); Glomerular Filtration Rate 75.7 mL/min (90-130); Glucose 105 mg/dL (65-115); Osmolality Calculated 287 mOsm/kg (285-295); Sodium 138 mmol/L (136-145); Total Bilirubin 2.9 mg/dL (0.15-1.2); Total Protein 5.3 g/dL (6.6-8.7)
[2024-09-16] MEDS: thiamine 100 mg/mL 2mL SDV IM (17:28)
[2024-09-16] MEDS: cefTRIAXone 1,000 mg SDV 1000 MG IVP (17:28)
[2024-09-16] MEDS: heparin 5,000 unit/mL INJ 1 mL 5000 UNIT SUBCUT (17:28)
[2024-09-16] MEDS: dexmedeTOMIDine 0.9 % NaCL 400 MCG/100 ML PREMIX IV (17:37)
--- NOTE | 2024-09-16 17:37 | PC.NURSE ---
Attempted to read 96 hour involuntary hold rights to patient. Patient is not alert and oriented at this time and does understand reading of rights. Copy was left at the bedside.
--- NOTE | 2024-09-16 18:35 | PC.NURSE ---
PATIENT IS CONFUSED AT THIS TIME AND ON SEDATION MEDICATIONS AND UNABLE TO TAKE ORAL MEDICATIONS.
[2024-09-16] MEDS: sodium chloride 0.9% 1,000 ML 100 ML IV (19:28)
--- NOTE | 2024-09-16 19:29 | PC.NURSE ---
MAR Upon receiving report on patient, precedex administering at 0.6 mcg/kg/hr while MAR displayed 0.3 mcg/kg/hr. MAR updated to reflect administration.
[2024-09-16 19:33] LABS: Glucose Point of Care 101 mg/dL (70-110)
[2024-09-16] MEDS: norepinephrine 4 MG/250 ML BAG 7.5 MG IV (20:48)
--- NOTE | 2024-09-16 21:15 | PC.NURSE ---
Levophed Patient's blood pressure decreased at 70/47 MAP 54. Furthermore, patient only responsive to painful stimuli. Precedex stopped, patient placed in reverse trendelenburg. Dr. Polo notified; physician at bedside approximately 15 minutes later. Orders for rectal lactulose and levophed placed by physician.
[2024-09-16] MEDS: lactulose oral liq 20 gm/30 mL UDC 200 GM PR (21:20)
[2024-09-16 21:46] LABS: INR 1.41 (0.8-1.2); Partial Thromboplastin Time 38.7 SECONDS (23.9-36.7)
[2024-09-17] VITALS (84 sets, daily range): BP systolic 81–177; BP diastolic 52–153; PULSE 60–224; RESP 16–33; TEMP 35.7–36.8; O2SAT 89–100
[2024-09-17] MEDS: lactulose oral liq 20 gm/30 mL UDC 200 GM PR (02:56)
--- NOTE | 2024-09-17 05:00 | PC.NURSE ---
Subq Heparin Verification received from Dr. Polo to administer subq heparin as ordered.
[2024-09-17] MEDS: heparin 5,000 unit/mL INJ 1 mL 5000 UNIT SUBCUT ×2 (05:15→16:24)
[2024-09-17 05:19] LABS: Hematocrit 35.8 % (37-53); Lymphocytes # 0.3 10^3/uL (0.8-4.8); Mean Corpuscular HGB Conc 34.1 g/dL (30-55); Mean Corpuscular Hemoglobin 32.4 pg (27-33); Mean Platelet Volume 10.6 fL (7.4-10.4); Monocytes # 0.4 10^3/uL (0.2-0.9); Monocytes % 8.4 %; Neutrophils # 3.72 10^3/uL (1.8-7.7); Neutrophils % 84.4 %; Nucleated Red Blood Cells % 0 %; Platelet Count 86 10^3/cmm (157-399); Red Blood Count 3.77 10^6/uL (3.85-5.65); Red Cell Distribution Width 14.7 % (12.1-15.1); White Blood Count 4.41 10^3/uL (3.29-11.43)
[2024-09-17 05:35] LABS: INR 1.37 (0.8-1.2)
[2024-09-17 05:49] LABS: Magnesium 2.1 mg/dL (1.7-2.3)
[2024-09-17 05:50] LABS: Alanine Aminotransferase 68 U/L (0-41); Albumin Level 2.6 g/dL (3.5-5.2); Alkaline Phosphatase 325 U/L (40-130); Aspartate Amino Transferase 273 U/L (0-40); Blood Urea Nitrogen 17 mg/dL (8-23); Calcium 7.5 mg/dL (8.5-10.5); Carbon Dioxide 20 mmol/L (22-29); Chloride 106 mmol/L (98-107); Creatinine Clr Calc Pharmacy 98.0296; Globulin 2.1 g/dL (1.3-4.6); Glomerular Filtration Rate 85.5 mL/min (90-130); Glucose 109 mg/dL (65-115); Lactic Sepsis W/Reflex 1.4 mmol/L (0.5-2.2); Osmolality Calculated 294 mOsm/kg (285-295); Sodium 141 mmol/L (136-145); Total Bilirubin 2.8 mg/dL (0.15-1.2); Total Protein 4.7 g/dL (6.6-8.7)
[2024-09-17 05:51] LABS: Anion Gap 18.6 (5-19); Potassium 3.6 mmol/L (3.5-5.1)
[2024-09-17] MEDS: LORazepam 1 MG/0.5 ML injection 2 MG IVP ×4 (06:18→23:27)
[2024-09-17 08:20] LABS: Ammonia 50 umol/L (16-60)
[2024-09-17] MEDS: haloperidol inj 5 mg/mL INJ 1 mL IM ×2 (09:00→23:35)
[2024-09-17] MEDS: morphine 4 mg/mL SDV 1 mL 2 MG IVP ×3 (09:40→23:27)
--- NOTE | 2024-09-17 15:32 | PM.PN ---
Subjective Subjective: Patient was seen this morning he is alert to person, not to place, not to time, is confused, is easily redirectable, but does not provide much history, restless trying to get up out of bed, he is normotensive, afebrile overnight on 3 L, did have transient episode of hypotension during the night but, but did not require Levophed, was taken off Precedex Vitals/I&O/Wt Last Vital Signs Temp 98.2 F 09/17/24 08:00 Pulse 98 09/17/24 14:30 Resp 18 09/17/24 06:00 BP 114/77 09/17/24 14:30 Pulse Ox 100 09/17/24 14:30 O2 Del Method Nasal Cannula 09/17/24 04:00 O2 Flow Rate 3 09/17/24 04:00 09/17/24 09/17/24 09/17/24 06:59 14:59 22:59 Intake Total 1075.875 / 7432.406 9175.94 / 3401.94 Balance 1075.875 / -2347.001 3401.94 / 3401.94 Weight last 48 hrs Weight 89.2 kg Weight 87.2 kg Weight 113.398 kg Physical Exam Const: COMMON NORMALS: no acute distress ORIENTATION/CONSCIOUSNESS: Yes awake, Yes oriented to person and Yes confused; not oriented to place and not oriented to time Resp: COMMON NORMALS: normal respiratory effort, No retractions, No use of accessory muscles and clear to auscultation bilaterally AUSCULTATION: clear to auscultation bilaterally Cardio: COMMON NORMALS: regular rate, regular rhythm, S1 normal heart sound present and S2 normal heart sound present RATE: regular rate RHYTHM: regular rhythm HEART SOUNDS: S1 normal heart sound present and S2 normal heart sound present GI: COMMON NORMALS: Normal to inspection, nondistended, normoactive bowel sounds present and non-tender Extremity: COMMON NORMALS: no pedal edema Neuro: SENSORIUM/ORIENTATION: Yes oriented to person, No oriented to place and No oriented to time Urinary Catheter Management: Barraza: Cath Placed During This Visit: yes Urinary Catheter Date of Insertion: 09/17/24 Urinary Catheter Time of Insertion: 08:43 Data 09/17/24 04:17 09/17/24 04:17 Micro: Microbiology 09/16/24 15:15 Body Fluid Culture - Preliminary Ascites Fluid 09/16/24 11:19 Blood Culture - Preliminary Blood NEGATIVE TO DATE 09/16/24 11:19 Blood Culture - Preliminary Blood NEGATIVE TO DATE A&P Assessment and plan (1) Alcohol withdrawal: (2) Alcoholic cirrhosis of liver: (3) Encephalopathy, hepatic: (4) Anasarca: (5) SBP (spontaneous bacterial peritonitis): (6) Lactic acidosis: (7) Decompensated cirrhosis: Plan 64M with alcoholic cirrhosis currently getting admitted for decompensated cirrhosis, hepatic encephalopathy and alcohol withdrawal, concern for spontaneous bacterial peritonitis Alcohol withdrawal - Precedex drip currently on hold - Continue CIWA protocol - Will consider phenobarbital based on clinical progress Hepatic encephalopathy -Ammonia level 50 - Continue lactulose - Continue rifaximin mean Ascites, status post paracentesis 3.5 L removed Concerns for spontaneous bacterial peritonitis - Continue Rocephin 1 g IV to every 24 hours Reported SI in the emergency room, on a 96-hour hold Bruising over abdominal wall, lower chest - Monitor Thrombocytopenia, monitor Transaminitis, monitor History of liver cirrhosis Recently admitted to [facility] for concerns for liver/gallbladder abscess -Had a biopsy done -Will await records - CT scan showing Small low-attenuation lesions about the gallbladder previously thought to represent small abscesses are similar in appearance. No evidence of progression. Mild gallbladder wall thickening with enhancement. DVT ppx: heparin 5000 s/c full code PDMP PDMP Reviewed: Not Reviewed Attestations Medical Necessity Statement*: Patient requires hospitalization for hepatic encephalopathy, concern for spontaneous bacterial peritonitis Diagnoses Alcohol withdrawal F10.939 Alcoholic cirrhosis of liver K70.30 Encephalopathy, hepatic K76.82 Anasarca R60.1 SBP (spontaneous bacterial peritonitis) K65.2 Lactic acidosis E87.20 Decompensated cirrhosis K72.90; K74.60
[2024-09-17] MEDS: cefTRIAXone 1,000 mg SDV 1000 MG IVP (16:24)
--- NOTE | 2024-09-17 17:17 | PC.NURSE ---
Unable to administer oral meds due to NPO status and high CIWA scores
--- NOTE | 2024-09-17 17:24 | PC.NURSE ---
Notified Dr. Avalos of urine color, received orders for UA. Order placed
[2024-09-17 17:57] LABS: Bilirubin Urine 2+ (Negative); Blood Urine 3+ (Negative); Glucose Urine UA Negative (Normal); Ketones Urine 1+ (Negative); Leukocyte Esterase Urine 1+ (Negative); Nitrate Urine Positive (Negative); Protein Urine 2+ (Negative); Urine Appearance Clear (CLEAR)
[2024-09-17 18:02] LABS: Add Urine Microscopic? YES; Bacteria Urine None Seen /hpf; RBC Urine >100 /hpf (0-2); Squamous Epithelial Cell Urine 0-5 /hpf (0-5); WBC Urine 21-50 /hpf (0-5)
[2024-09-17 18:13] LABS: Specific Gravity, Urine 1.032 (1.005-1.030); Urine Color Orange (Yellow)
[2024-09-17 18:14] LABS: Add Urine Culture? Yes
[2024-09-17] MEDS: ondansetron 2 mg/ML SDV 2 mL 4 MG IVP (23:32)
[2024-09-18] VITALS (50 sets, daily range): BP systolic 80–178; BP diastolic 52–124; PULSE 65–128; RESP 12–21; TEMP 36.2–37.2; O2SAT 88–100
[2024-09-18 03:14] LABS: Basophils % 0.2 %; Eosinophils % 0.4 %; Hematocrit 39.5 % (37-53); Lymphocytes % 17.6 %; Mean Corpuscular HGB Conc 33.9 g/dL (30-55); Mean Corpuscular Hemoglobin 32.6 pg (27-33); Mean Corpuscular Volume 96.1 fl (82-101); Mean Platelet Volume 10.4 fL (7.4-10.4); Monocytes # 0.6 10^3/uL (0.2-0.9); Monocytes % 10.9 %; Neutrophils # 3.92 10^3/uL (1.8-7.7); Neutrophils % 70.2 %; Nucleated Red Blood Cells % 0 %; Platelet Count 91 10^3/cmm (157-399); Red Blood Count 4.11 10^6/uL (3.85-5.65); Red Cell Distribution Width 15.2 % (12.1-15.1); White Blood Count 5.58 10^3/uL (3.29-11.43)
[2024-09-18] MEDS: heparin 5,000 unit/mL INJ 1 mL 5000 UNIT SUBCUT ×2 (03:16→15:50)
[2024-09-18] MEDS: morphine 4 mg/mL SDV 1 mL 2 MG IVP ×3 (03:16→19:36)
[2024-09-18 03:33] LABS: Ammonia 24 umol/L (16-60)
[2024-09-18 03:34] LABS: Alanine Aminotransferase 84 U/L (0-41); Albumin Level 2.7 g/dL (3.5-5.2); Alkaline Phosphatase 371 U/L (40-130); Anion Gap 15.7 (5-19); Aspartate Amino Transferase 304 U/L (0-40); Blood Urea Nitrogen 15 mg/dL (8-23); Calcium 8.5 mg/dL (8.5-10.5); Carbon Dioxide 24 mmol/L (22-29); Chloride 105 mmol/L (98-107); Creatinine Clr Calc Pharmacy 111.3667; Globulin 2.6 g/dL (1.3-4.6); Glucose 88 mg/dL (65-115); Magnesium 2.2 mg/dL (1.7-2.3); Osmolality Calculated 292 mOsm/kg (285-295); Phosphorus 1.8 mg/dL (2.5-4.5); Potassium 3.7 mmol/L (3.5-5.1); Sodium 141 mmol/L (136-145); Total Bilirubin 2.5 mg/dL (0.15-1.2); Total Protein 5.3 g/dL (6.6-8.7)
[2024-09-18] MEDS: LORazepam 1 MG/0.5 ML injection 2 MG IVP ×2 (04:05→19:38)
[2024-09-18] MEDS: sodium chloride 0.9% 1,000 ML 100 ML IV ×2 (12:50→22:51)
[2024-09-18] MEDS: thiamine 100 mg/mL 2mL SDV 200 MG IVP ×2 (12:54→19:38)
[2024-09-18] MEDS: cefTRIAXone 1,000 mg SDV 1000 MG IVP (15:48)
--- NOTE | 2024-09-18 17:18 | P.PN_ITS ---
Subjective 2 Subjective: Patient was seen this morning, he is currently alert to person, not place, time he can follow some commands, is able to track me around the room able to withdraw from pain, but remains diffusely encephalopathic, I cannot discern any focal weakness, moves bilateral upper and lower extremities, no slurring of his words, no facial droop, pupils equal round reactive to light, Vitals/I&O/Wt Last Vital Signs Temp 97.4 F L 09/18/24 12:00 Pulse 121 H 09/18/24 16:00 Resp 16 09/18/24 16:00 BP 165/115 09/18/24 16:00 Pulse Ox 88 L 09/18/24 16:00 O2 Del Method Nasal Cannula 09/18/24 12:00 O2 Flow Rate 2 09/18/24 12:00 09/18/24 09/18/24 09/18/24 06:59 14:59 22:59 Intake Total 0 / 0 Output Total 225 / 225 Balance -225 / 3176.94 0 / 0 Weight last 48 hrs Weight 87 kg Weight 89.2 kg Weight 87.2 kg Physical Exam 2 Const: COMMON NORMALS: no acute distress EXAM LIMITATIONS: altered mental status ORIENTATION/CONSCIOUSNESS: Yes awake, Yes oriented to person and Yes confused; not oriented to place and not oriented to time Eye: COMMON NORMALS: Equal, round and reactive pupils present PUPIL: Yes Equal, round and reactive pupils present Chest: OTHER: Multiple areas of bruising bilateral chest Resp: COMMON NORMALS: normal respiratory effort, No retractions, No use of accessory muscles and clear to auscultation bilaterally AUSCULTATION: clear to auscultation bilaterally Cardio: COMMON NORMALS: regular rate, regular rhythm, S1 normal heart sound present and S2 normal heart sound present RATE: regular rate RHYTHM: r egular rhythm HEART SOUNDS: S1 normal heart sound present and S2 normal heart sound present GI: COMMON NORMALS: Normal to inspection, nondistended, normoactive bowel sounds present and non-tender Extremity: COMMON NORMALS: no pedal edema Neuro: SENSORIUM/ORIENTATION: Yes oriented to person, No oriented to place and No oriented to time OTHER: Difficult to do neurologic testing given global encephalopathy Urinary Catheter Management: Barraza: Cath Placed During This Visit: yes Reason for Continuing Indwelling Catheter: Accurate Measurement of Urinary Output in Critically Ill Patients Urinary Catheter Date of Insertion: 09/17/24 Urinary Catheter Time of Insertion: 08:43 Data 09/18/24 02:59 09/18/24 02:59 Micro: Microbiology 09/16/24 15:15 Body Fluid Culture - Preliminary Ascites Fluid A&P Assessment and plan (1) Alcohol withdrawal: (2) Alcoholic cirrhosis of liver: (3) Encephalopathy, hepatic: (4) Anasarca: (5) SBP (spontaneous bacterial peritonitis): (6) Lactic acidosis: (7) Decompensated cirrhosis: (8) Acute encephalopathy: (9) Urinary tract infection: (10) Wernickes encephalopathy: Plan 64M with alcoholic cirrhosis currently getting admitted for decompensated cirrhosis, hepatic encephalopathy and alcohol withdrawal, concern for spontaneous bacterial peritonitis Acute encephalopathy - Toxic encephalopathy and metabolic - Component of toxic encephalopathy associate with alcohol withdrawal - Concerns for UTI and SBP playing a role - Concerns for Warnicke's encephalopathy playing a role -Hyperammonemia - Monitor mentation closely - Neurochecks - NIH stroke scale - Keep n.p.o. Alcohol withdrawal - Precedex drip currently on hold - Continue CIWA protocol Concerns for Wernicke's encephalopathy - Start high-dose IV thiamine Hepatic encephalopathy -Ammonia level 24 - Continue lactulose - Continue rifaximin mean Ascites, status post paracentesis 3.5 L removed Concerns for spontaneous bacterial peritonitis -So far paracentesis cultures no growth - Expand antibiotic coverage to Zosyn Urinary tract infection, expand to Zosyn Reported SI in the emergency room, on a 96-hour hold - Currently is globally encephalopathic - Has not voiced any SI ideation to me Bruising over abdominal wall, lower chest - Monitor Thrombocytopenia, monitor Transaminitis, monitor History of liver cirrhosis Recently admitted to [facility] for concerns for liver/gallbladder abscess? -Had a biopsy done -Will await records - CT scan showing Small low-attenuation lesions about the gallbladder previously thought to represent small abscesses are similar in appearance. No evidence of progression. Mild gallbladder wall thickening with enhancement. DVT ppx: heparin 5000 s/c full code PDMP PDMP Reviewed: Not Reviewed Attestations 2 Medical Necessity Statement*: Patient requires hospitalization for acute encephalopathy, metabolic and toxic, UTI, SBP, alcohol withdrawal, Warnicke's encephalopathy Diagnoses Alcohol withdrawal F10.939 Alcoholic cirrhosis of liver K70.30 Encephalopathy, hepatic K76.82 Anasarca R60.1 SBP (spontaneous bacterial peritonitis) K65.2 Lactic acidosis E87.20 Decompensated cirrhosis K72.90; K74.60 Acute encephalopathy G93.40 Urinary tract infection N39.0 Wernickes encephalopathy E51.2
[2024-09-18] MEDS: piperacillin-tazobactam 3.375 GM in sodium chloride 0.9% (plus) 50 ML IV (17:45)
[2024-09-19] VITALS (49 sets, daily range): BP systolic 95–164; BP diastolic 62–124; PULSE 34–128; RESP 9–23; TEMP 36.4–37.2; O2SAT 90–99
[2024-09-19] MEDS: morphine 4 mg/mL SDV 1 mL 2 MG IVP ×2 (00:11→12:27)
[2024-09-19] MEDS: piperacillin-tazobactam 3.375 GM in sodium chloride 0.9% (plus) 50 ML IV ×3 (02:14→18:05)
[2024-09-19] MEDS: thiamine 100 mg/mL 2mL SDV 200 MG IVP ×3 (03:46→19:33)
[2024-09-19] MEDS: heparin 5,000 unit/mL INJ 1 mL 5000 UNIT SUBCUT ×2 (03:46→18:05)
[2024-09-19] MEDS: LORazepam 1 MG/0.5 ML injection 2 MG IVP ×4 (03:47→15:10)
[2024-09-19 05:20] LABS: Basophils % 0.2 %; Eosinophils # 0.1 10^3/uL (0.0-0.8); Eosinophils % 2.1 %; Hematocrit 38.9 % (37-53); Lymphocytes # 0.7 10^3/uL (0.8-4.8); Lymphocytes % 16.2 %; Mean Corpuscular HGB Conc 33.2 g/dL (30-55); Mean Corpuscular Hemoglobin 32.1 pg (27-33); Mean Corpuscular Volume 96.8 fl (82-101); Mean Platelet Volume 11.1 fL (7.4-10.4); Monocytes # 0.4 10^3/uL (0.2-0.9); Neutrophils % 71.6 %; Nucleated Red Blood Cells % 0 %; Platelet Count 80 10^3/cmm (157-399); Red Blood Count 4.02 10^6/uL (3.85-5.65); Red Cell Distribution Width 15.4 % (12.1-15.1); White Blood Count 4.33 10^3/uL (3.29-11.43)
[2024-09-19 05:34] LABS: Ammonia 24 umol/L (16-60)
[2024-09-19 05:35] LABS: Alanine Aminotransferase 75 U/L (0-41); Albumin Level 2.5 g/dL (3.5-5.2); Alkaline Phosphatase 323 U/L (40-130); Anion Gap 13.1 (5-19); Aspartate Amino Transferase 221 U/L (0-40); Blood Urea Nitrogen 11 mg/dL (8-23); Carbon Dioxide 25 mmol/L (22-29); Chloride 110 mmol/L (98-107); Creatinine Clr Calc Pharmacy 125.9143; Globulin 2.2 g/dL (1.3-4.6); Glomerular Filtration Rate 114.3 mL/min (90-130); Glucose 86 mg/dL (65-115); Magnesium 2.1 mg/dL (1.7-2.3); Osmolality Calculated 297 mOsm/kg (285-295); Phosphorus 2.1 mg/dL (2.5-4.5); Potassium 4.1 mmol/L (3.5-5.1); Sodium 144 mmol/L (136-145); Total Bilirubin 1.9 mg/dL (0.15-1.2); Total Protein 4.7 g/dL (6.6-8.7)
--- NOTE | 2024-09-19 08:03 | PC.NURSE ---
Patient was unable to take their morning PO medications safely because patient is very lethargic and confused. Patient is also NPO at this time.
--- NOTE | 2024-09-19 09:43 | MR_ITS ---
WS: [id number] MRI BRAIN WITHOUT CONTRAST HISTORY: ams COMPARISON: None available. TECHNIQUE: Diffusion imaging, multiplanar T1, T2 and FLAIR imaging obtained. Diffusion imaging is normal. No prior infarcts and only mild small vessel disease. There is some motion artifact limiting evaluation. There is also cerebral and cerebellar atrophy. Mild hippocampal atrophy. No prior infarct. Ventricles and extra-axial spaces are normal. No inferior displacement of cerebellar tonsils. The sella turcica and pituitary gland are unremarkable. Dural venous sinuses and cheesh-na of Rosenberg demonstrate no abnormality on this unenhanced studies. Paranasal sinuses: Clear. Mastoid air cells: Normal. Calvarium and scalp: Intact. Mild soft tissue thickening over the RIGHT neck and parotid gland may be related to positional edema. MR/MR head wo con* [id number] IMPRESSION: 1. No diffusion abnormality. No significant prior infarct or hemorrhage. 2. Mild cerebral, cerebellar and hippocampal atrophy. 3. No ventriculomegaly.
[2024-09-19] MEDS: sodium chloride 0.9% 1,000 ML 100 ML IV ×2 (11:00→22:34)
--- NOTE | 2024-09-19 12:43 | P.PN_ITS ---
Subjective 2 Subjective: Patient was seen this morning, currently alert to person, not to place, not time, he does awaken, does follow some commands but falls back asleep, he does become agitated, continues to have diffuse encephalopathy, afebrile overnight, normotensive, on room air Vitals/I&O/Wt Last Vital Signs Temp 98.9 F 09/19/24 07:30 Pulse 102 H 09/19/24 08:30 Resp 18 09/19/24 12:27 BP 121/103 09/19/24 08:30 Pulse Ox 95 09/19/24 12:27 O2 Del Method Room Air 09/19/24 08:30 O2 Flow Rate 2 09/18/24 12:00 09/18/24 09/19/24 09/19/24 22:59 06:59 14:59 Intake Total 1050 / 1050 50 / 1100 1000 / 1000 Output Total 450 / 450 Balance 1050 / 1050 -400 / 650 1000 / 1000 Weight last 48 hrs Weight 87 kg Weight 87 kg Physical Exam 2 Const: COMMON NORMALS: no acute distress ORIENTATION/CONSCIOUSNESS: Yes awake, Yes oriented to person and Yes confused; not oriented to place and not oriented to time Eye: COMMON NORMALS: Equal, round and reactive pupils present PUPIL: Yes Equal, round and reactive pupils present Resp: COMMON NORMALS: normal respiratory effort, No retractions, No use of accessory muscles and clear to auscultation bilaterally AUSCULTATION: clear to auscultation bilaterally Cardio: COMMON NORMALS: regular rate, regular rhythm, S1 normal heart sound present and S2 normal heart sound present RATE: regular rate RHYTHM: r egular rhythm HEART SOUNDS: S1 normal heart sound present and S2 normal heart sound present GI: COMMON NORMALS: Normal to inspection, nondistended, normoactive bowel sounds present and non-tender Extremity: COMMON NORMALS: no pedal edema Neuro: SENSORIUM/ORIENTATION: Yes oriented to person, No oriented to place and No oriented to time OTHER: Difficult to assess neurologic testing given diffuse encephalopathy Urinary Catheter Management: Barraza: Cath Placed During This Visit: yes Reason for Continuing Indwelling Catheter: Accurate Measurement of Urinary Output in Critically Ill Patients Urinary Catheter Date of Insertion: 09/17/24 Urinary Catheter Time of Insertion: 08:43 Data 09/19/24 05:00 09/19/24 05:00 Micro: Microbiology 09/16/24 15:15 Body Fluid Culture - Preliminary Ascites Fluid A&P Assessment and plan (1) Alcohol withdrawal: (2) Alcoholic cirrhosis of liver: (3) Encephalopathy, hepatic: (4) Anasarca: (5) SBP (spontaneous bacterial peritonitis): (6) Lactic acidosis: (7) Decompensated cirrhosis: (8) Acute encephalopathy: (9) Urinary tract infection: (10) Wernickes encephalopathy: Plan 64M with alcoholic cirrhosis currently getting admitted for decompensated cirrhosis, hepatic encephalopathy and alcohol withdrawal, concern for spontaneous bacterial peritonitis Acute encephalopathy - Toxic encephalopathy and metabolic - Component of toxic encephalopathy associated with alcohol withdrawal - Concerns for UTI and SBP playing a role - Concerns for Warnicke's encephalopathy playing a role -Hyperammonemia, resolving - Monitor mentation closely - Neurochecks - NIH stroke scale - Keep n.p.o. Alcohol withdrawal, currently on day 3 for - Precedex drip currently on hold - Continue CIWA protocol Concerns for Wernicke's encephalopathy - high-dose IV thiamine Hepatic encephalopathy -Ammonia level 24 - Continue lactulose - Continue rifaximin mean Ascites, status post paracentesis 3.5 L removed Concerns for spontaneous bacterial peritonitis -So far paracentesis cultures no growth - Expand antibiotic coverage to Zosyn Urinary tract infection, expand to Zosyn Reported SI in the emergency room, on a 96-hour hold - Currently is globally encephalopathic - Has not voiced any SI ideation to me Bruising over abdominal wall, lower chest - Monitor Thrombocytopenia, monitor Transaminitis, monitor History of liver cirrhosis, history of portal portal hypertensive gastropathy Recently admitted to [facility] for concerns for liver/gallbladder abscess? - Patient had MRI of the abdomen did not show any evidence of liver lesions, fatty islands noted, had a 9 mm hyperenhancing nodule within the right hepatic note, LI-RADS 3 cirrhotic liver with geographic areas of steatosis -Will await records - CT scan showing Small low-attenuation lesions about the gallbladder previously thought to represent small abscesses are similar in appearance. No evidence of progression. Mild gallbladder wall thickening with enhancement. DVT ppx: heparin 5000 s/c full code Plan for today continue broad-spectrum antibiotic therapy, monitor mentation, IV fluids, continue thiamine, monitor mentation, MRI brain PDMP PDMP Reviewed: Not Reviewed Attestations 2 Medical Necessity Statement*: Patient requires hospitalization for acute encephalopathy metabolic, toxic encephalopathy, alcoholism, alcohol withdrawal, uti, sbp Diagnoses Alcohol withdrawal F10.939 Alcoholic cirrhosis of liver K70.30 Encephalopathy, hepatic K76.82 Anasarca R60.1 SBP (spontaneous bacterial peritonitis) K65.2 Lactic acidosis E87.20 Decompensated cirrhosis K72.90; K74.60 Acute encephalopathy G93.40 Urinary tract infection N39.0 Wernickes encephalopathy E51.2
[2024-09-20] VITALS (22 sets, daily range): BP systolic 122–155; BP diastolic 87–111; PULSE 78–117; RESP 13–31; TEMP 36.1–37.2; O2SAT 94–97
[2024-09-20] MEDS: piperacillin-tazobactam 3.375 GM in sodium chloride 0.9% (plus) 50 ML IV ×3 (02:17→17:56)
[2024-09-20 04:02] LABS: Basophils % 0.6 %; Eosinophils # 0.1 10^3/uL (0.0-0.8); Eosinophils % 1.3 %; Hematocrit 40.5 % (37-53); Lymphocytes # 0.8 10^3/uL (0.8-4.8); Lymphocytes % 15.9 %; Mean Corpuscular HGB Conc 33.6 g/dL (30-55); Mean Corpuscular Hemoglobin 32.4 pg (27-33); Mean Corpuscular Volume 96.4 fl (82-101); Mean Platelet Volume 11.4 fL (7.4-10.4); Monocytes # 0.6 10^3/uL (0.2-0.9); Monocytes % 11.7 %; Neutrophils # 3.66 10^3/uL (1.8-7.7); Neutrophils % 69.4 %; Nucleated Red Blood Cells % 0 %; Platelet Count 90 10^3/cmm (157-399); Red Cell Distribution Width 15.7 % (12.1-15.1); White Blood Count 5.28 10^3/uL (3.29-11.43)
[2024-09-20 04:23] LABS: Alanine Aminotransferase 80 U/L (0-41); Albumin Level 2.7 g/dL (3.5-5.2); Alkaline Phosphatase 341 U/L (40-130); Anion Gap 16.5 (5-19); Aspartate Amino Transferase 195 U/L (0-40); Blood Urea Nitrogen 8 mg/dL (8-23); Calcium 8.4 mg/dL (8.5-10.5); Carbon Dioxide 25 mmol/L (22-29); Chloride 111 mmol/L (98-107); Creatinine Clr Calc Pharmacy 125.9143; Globulin 2.6 g/dL (1.3-4.6); Glomerular Filtration Rate 114.3 mL/min (90-130); Glucose 83 mg/dL (65-115); Osmolality Calculated 305 mOsm/kg (285-295); Phosphorus 1.8 mg/dL (2.5-4.5); Potassium 3.5 mmol/L (3.5-5.1); Sodium 149 mmol/L (136-145); Total Bilirubin 2.4 mg/dL (0.15-1.2); Total Protein 5.3 g/dL (6.6-8.7)
[2024-09-20 04:30] LABS: Ammonia 25 umol/L (16-60)
[2024-09-20] MEDS: heparin 5,000 unit/mL INJ 1 mL 5000 UNIT SUBCUT ×2 (05:21→16:46)
[2024-09-20] MEDS: thiamine 100 mg/mL 2mL SDV 200 MG IVP ×3 (05:21→19:40)
[2024-09-20] MEDS: potassium phosphate (mEq K) 40 MEQ in sodium chloride 0.9% (100 ml) 100 ML 27.25 MEQ IV (08:23)
--- NOTE | 2024-09-20 09:16 | PC.NURSE ---
Dr. Avalos ordered to bladder scan the patient. Patient had 287 mls of urine in bladder. Barraza Catheter was flushed with 10 mls of NS and also repositioned.
[2024-09-20] MEDS: sodium chloride 0.9% 1,000 ML 100 ML IV (10:05)
--- NOTE | 2024-09-20 10:46 | PC.SLP ---
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
--- NOTE | 2024-09-20 14:04 | PM.PN ---
Subjective Subjective: Patient was seen this morning, he is alert to person, not to place, not to time he can follow some commands, does recognize me, but remains globally encephalopathic, afebrile overnight, normotensive, reports feeling hungry, nursing staff report coughing with feeding, will have speech therapy see him today Vitals/I&O/Wt Last Vital Signs Temp 99.0 F 09/20/24 08:00 Pulse 87 09/20/24 10:00 Resp 17 09/20/24 10:00 BP 136/105 09/20/24 10:00 Pulse Ox 97 09/20/24 10:00 O2 Del Method Room Air 09/20/24 10:00 O2 Flow Rate 2 09/18/24 12:00 09/19/24 09/20/24 09/20/24 22:59 06:59 14:59 Intake Total 1100 / 2100 50 / 2150 1000 / 1000 Output Total 300 / 300 250 / 550 Balance 800 / 1800 -200 / 1600 1000 / 1000 Weight last 48 hrs Weight 85.729 kg Weight 87 kg Physical Exam Const: COMMON NORMALS: no acute distress EXAM LIMITATIONS: altered mental status ORIENTATION/CONSCIOUSNESS: Yes awake, Yes oriented to person, Yes oriented to place and Yes confused; not oriented to time Eye: COMMON NORMALS: Equal, round and reactive pupils present PUPIL: Yes Equal, round and reactive pupils present Resp: COMMON NORMALS: normal respiratory effort, No retractions, No use of accessory muscles and clear to auscultation bilaterally AUSCULTATION: clear to auscultation bilaterally Cardio: COMMON NORMALS: regular rate, regular rhythm, S1 normal heart sound present and S2 normal heart sound present RATE: regular rate RHYTHM: regular rhythm HEART SOUNDS: S1 normal heart sound present and S2 normal heart sound present GI: COMMON NORMALS: Normal to inspection, nondistended, normoactive bowel sounds present and non-tender Extremity: COMMON NORMALS: no calf tenderness and no pedal edema Neuro: SENSORIUM/ORIENTATION: Yes oriented to person, Yes oriented to place and No oriented to time Psych: COMMON NORMALS: mental status grossly normal Urinary Catheter Management: Barraza: Cath Placed During This Visit: yes Reason for Continuing Indwelling Catheter: Accurate Measurement of Urinary Output in Critically Ill Patients Urinary Catheter Date of Insertion: 09/17/24 Urinary Catheter Time of Insertion: 08:43 Data 09/20/24 03:44 09/20/24 03:44 Micro: Microbiology 09/17/24 17:32 Urine Culture - Final Urine,Clean Catch 09/16/24 15:15 Body Fluid Culture - Final Ascites Fluid A&P Assessment and plan (1) Alcohol withdrawal: (2) Alcoholic cirrhosis of liver: (3) Encephalopathy, hepatic: (4) Anasarca: (5) SBP (spontaneous bacterial peritonitis): (6) Lactic acidosis: (7) Decompensated cirrhosis: (8) Acute encephalopathy: (9) Urinary tract infection: (10) Wernickes encephalopathy: Plan 64M with alcoholic cirrhosis currently getting admitted for decompensated cirrhosis, hepatic encephalopathy and alcohol withdrawal, concern for spontaneous bacterial peritonitis Acute encephalopathy -MRI brain no acute findings - Toxic encephalopathy and metabolic - Component of toxic encephalopathy associated with alcohol withdrawal - Concerns for UTI and SBP playing a role - Concerns for Warnicke's encephalopathy playing a role -Hyperammonemia, resolving - Monitor mentation closely - Neurochecks - NIH stroke scale - Keep n.p.o., speech therapy eval Alcohol withdrawal, currently on day 4 - Precedex drip currently on hold - Continue CIWA protocol Concerns for Wernicke's encephalopathy - high-dose IV thiamine for total 5 days Hepatic encephalopathy -Ammonia level 24 - Continue lactulose - Continue rifaximin mean Ascites, status post paracentesis 3.5 L removed Concerns for spontaneous bacterial peritonitis -So far paracentesis cultures no growth - Expand antibiotic coverage to Zosyn Urinary tract infection, expand to Zosyn Reported SI in the emergency room, on a 96-hour hold - Currently is globally encephalopathic - Has not voiced any SI ideation to me Bruising over abdominal wall, lower chest - Monitor Thrombocytopenia, monitor Transaminitis, monitor History of liver cirrhosis, history of portal portal hypertensive gastropathy Recently admitted to [facility] for concerns for liver/gallbladder abscess? - Patient had MRI of the abdomen did not show any evidence of liver lesions, fatty islands noted, had a 9 mm hyperenhancing nodule within the right hepatic note, LI-RADS 3 cirrhotic liver with geographic areas of steatosis -Will await records - CT scan showing Small low-attenuation lesions about the gallbladder previously thought to represent small abscesses are similar in appearance. No evidence of progression. Mild gallbladder wall thickening with enhancement. DVT ppx: heparin 5000 s/c full code Plan for today continue broad-spectrum antibiotic therapy, monitor mentation, IV fluids, continue thiamine, monitor mentation, PDMP PDMP Reviewed: Not Reviewed Attestations Medical Necessity Statement*: Patient requires hospitalization for acute encephalopathy Diagnoses Alcohol withdrawal F10.939 Alcoholic cirrhosis of liver K70.30 Encephalopathy, hepatic K76.82 Anasarca R60.1 SBP (spontaneous bacterial peritonitis) K65.2 Lactic acidosis E87.20 Decompensated cirrhosis K72.90; K74.60 Acute encephalopathy G93.40 Urinary tract infection N39.0 Wernickes encephalopathy E51.2
[2024-09-20] MEDS: LORazepam 1 MG/0.5 ML injection 2 MG IVP ×2 (16:46→19:46)
[2024-09-20] MEDS: sodium chloride 0.9% 1,000 ML 125 ML IV (19:41)
[2024-09-20] MEDS: quetiapine 100 mg Tablet PO (20:02)
[2024-09-21] VITALS (55 sets, daily range): BP systolic 124–154; BP diastolic 85–124; PULSE 66–106; RESP 16–20; TEMP 36.7–37; O2SAT 92–98
[2024-09-21] MEDS: LORazepam 1 MG/0.5 ML injection 2 MG IVP ×3 (00:53→23:12)
[2024-09-21] MEDS: thiamine 100 mg/mL 2mL SDV 200 MG IVP ×3 (02:35→19:20)
[2024-09-21] MEDS: piperacillin-tazobactam 3.375 GM in sodium chloride 0.9% (plus) 50 ML IV ×3 (02:35→18:15)
[2024-09-21] MEDS: heparin 5,000 unit/mL INJ 1 mL 5000 UNIT SUBCUT ×2 (04:04→15:15)
[2024-09-21] MEDS: sodium chloride 0.9% 1,000 ML 125 ML IV ×2 (04:04→13:31)
[2024-09-21 05:07] LABS: Basophils % 0.4 %; Eosinophils # 0.1 10^3/uL (0.0-0.8); Eosinophils % 2.9 %; Hematocrit 38.2 % (37-53); Lymphocytes % 21.3 %; Mean Corpuscular Hemoglobin 32.7 pg (27-33); Mean Platelet Volume 10.1 fL (7.4-10.4); Monocytes # 0.7 10^3/uL (0.2-0.9); Monocytes % 15.2 %; Neutrophils # 2.83 10^3/uL (1.8-7.7); Neutrophils % 59.2 %; Nucleated Red Blood Cells % 0 %; Platelet Count 76 10^3/cmm (157-399); Red Blood Count 3.98 10^6/uL (3.85-5.65); Red Cell Distribution Width 16.1 % (12.1-15.1); White Blood Count 4.79 10^3/uL (3.29-11.43)
[2024-09-21 05:36] LABS: Alanine Aminotransferase 69 U/L (0-41); Albumin Level 2.6 g/dL (3.5-5.2); Alkaline Phosphatase 279 U/L (40-130); Anion Gap 18.3 (5-19); Aspartate Amino Transferase 150 U/L (0-40); Blood Urea Nitrogen 5 mg/dL (8-23); Calcium 7.9 mg/dL (8.5-10.5); Carbon Dioxide 22 mmol/L (22-29); Chloride 113 mmol/L (98-107); Creatinine Clr Calc Pharmacy 128.2722; Globulin 2.3 g/dL (1.3-4.6); Glomerular Filtration Rate 114.3 mL/min (90-130); Glucose 72 mg/dL (65-115); Magnesium 1.9 mg/dL (1.7-2.3); Osmolality Calculated 306 mOsm/kg (285-295); Phosphorus 2.4 mg/dL (2.5-4.5); Potassium 3.3 mmol/L (3.5-5.1); Sodium 150 mmol/L (136-145); Total Bilirubin 2.2 mg/dL (0.15-1.2); Total Protein 4.9 g/dL (6.6-8.7)
[2024-09-21 07:35] LABS: Glucose Point of Care 65 mg/dL (70-110)
[2024-09-21] MEDS: dextrose 10% 125 ML 750 ML IV (07:48)
[2024-09-21 08:57] LABS: Glucose Point of Care 69 mg/dL (70-110)
[2024-09-21 09:46] LABS: Glucose Point of Care 82 mg/dL (70-110)
[2024-09-21] MEDS: potassium phosphate (mEq K) 40 MEQ in sodium chloride 0.9% (100 ml) 100 ML 27.25 MEQ IV (09:54)
[2024-09-21] MEDS: levETIRAcetam 500 MG/100 ML PREMIX 400 MG IV (11:02)
[2024-09-21] MEDS: AA-Dex 4.25%-5% w/Lytes 1,000 ML 42 ML IV (12:15)
[2024-09-21 12:31] LABS: Glucose Point of Care 68 mg/dL (70-110)
[2024-09-21 14:02] LABS: Glucose Point of Care 75 mg/dL (70-110)
--- NOTE | 2024-09-21 14:18 | P.PN_ITS ---
Subjective 2 Subjective: Patient was seen this morning, he is alert to person, not place, time, this morning he is more encephalopathic did receive Ativan about at 5 AM, does awaken pupils equal round reactive to light, does withdraw from pain, does localize pain, but easily falls back asleep Vitals/I&O/Wt Last Vital Signs Temp 98.1 F 09/21/24 13:00 Pulse 74 09/21/24 13:00 Resp 16 09/21/24 13:00 BP 148/103 09/21/24 13:00 Pulse Ox 96 09/21/24 12:45 O2 Del Method Room Air 09/21/24 10:15 O2 Flow Rate 2 09/18/24 12:00 09/20/24 09/21/24 09/21/24 22:59 06:59 14:59 Intake Total 1119.0909 / 2169.0909 1050 / 3219.0909 1000 / 1000 Output Total 475 / 475 600 / 1075 Balance 644.0909 / 1694.0909 450 / 2144.0909 1000 / 1000 Weight last 48 hrs Weight 90.809 kg Weight 85.729 kg Physical Exam 2 Const: COMMON NORMALS: no acute distress ORIENTATION/CONSCIOUSNESS: Yes awake, Yes oriented to person and Yes confused; not oriented to place and not oriented to time Resp: COMMON NORMALS: normal respiratory effort, No retractions, No use of accessory muscles and clear to auscultation bilaterally AUSCULTATION: clear to auscultation bilaterally Cardio: COMMON NORMALS: regular rate, regular rhythm, S1 normal heart sound present and S2 normal heart sound present RATE: regular rate RHYTHM: r egular rhythm HEART SOUNDS: S1 normal heart sound present and S2 normal heart sound present GI: COMMON NORMALS: Normal to inspection, nondistended, normoactive bowel sounds present and non-tender Extremity: COMMON NORMALS: no pedal edema Neuro: SENSORIUM/ORIENTATION: Yes oriented to person, No oriented to place and No oriented to time Urinary Catheter Management: Barraza: Cath Placed During This Visit: yes Reason for Continuing Indwelling Catheter: Accurate Measurement of Urinary Output in Critically Ill Patients Urinary Catheter Date of Insertion: 09/17/24 Urinary Catheter Time of Insertion: 08:43 Data 09/21/24 04:30 09/21/24 04:30 Micro: Microbiology 09/16/24 11:19 Blood Culture - Final Blood NO GROWTH AFTER 5 DAYS 09/16/24 11:19 Blood Culture - Final Blood NO GROWTH AFTER 5 DAYS A&P Assessment and plan (1) Alcohol withdrawal: (2) Alcoholic cirrhosis of liver: (3) Encephalopathy, hepatic: (4) Anasarca: (5) SBP (spontaneous bacterial peritonitis): (6) Lactic acidosis: (7) Decompensated cirrhosis: (8) Acute encephalopathy: (9) Urinary tract infection: (10) Wernickes encephalopathy: Plan 64M with alcoholic cirrhosis currently getting admitted for decompensated cirrhosis, hepatic encephalopathy and alcohol withdrawal, concern for spontaneous bacterial peritonitis Acute encephalopathy -MRI brain no acute findings - Toxic encephalopathy and metabolic - Component of toxic encephalopathy associated with alcohol withdrawal - Concerns for UTI and SBP playing a role - Concerns for Warnicke's encephalopathy playing a role -Hyperammonemia, resolving - Monitor mentation closely - Neurochecks - NIH stroke scale - Keep n.p.o., speech therapy eval, advance to dysphagia level 4 diet Alcohol withdrawal, currently on day 5 of withdrawal window - Precedex drip currently on hold - [facility] Concerns for Wernicke's encephalopathy - high-dose IV thiamine for total 5 days Hepatic encephalopathy -Ammonia level 24 - Continue lactulose - Continue rifaximin Ascites, status post paracentesis 3.5 L removed Concerns for spontaneous bacterial peritonitis -So far paracentesis cultures no growth - Expand antibiotic coverage to Zosyn Urinary tract infection, expand to Zosyn Reported SI in the emergency room, on a 96-hour hold - Currently is globally encephalopathic - Has not voiced any SI ideation to me Bruising over abdominal wall, lower chest - Monitor Thrombocytopenia, monitor Transaminitis, monitor History of liver cirrhosis, history of portal portal hypertensive gastropathy Recently admitted to [facility] for concerns for liver/gallbladder abscess? - Patient had MRI of the abdomen did not show any evidence of liver lesions, fatty islands noted, had a 9 mm hyperenhancing nodule within the right hepatic note, LI-RADS 3 cirrhotic liver with geographic areas of steatosis -Will await records - CT scan showing Small low-attenuation lesions about the gallbladder previously thought to represent small abscesses are similar in appearance. No evidence of progression. Mild gallbladder wall thickening with enhancement. DVT ppx: heparin 5000 s/c full code Plan for today as appetite remains poor has episodes of hypoglycemia we will start patient on peripheral nutrition, hyponatremia serum sodium 150, monitor on peripheral nutrition, as patient's mentation improvement is lackluster, we will start him on IV Keppra to see if that will improve his mentation potentially subclinical seizures as etiology can consider lumbar puncture based on clinical progress PDMP PDMP Reviewed: Not Reviewed Attestations 2 Medical Necessity Statement*: Patient requires hospitalization for acute encephalopathy Diagnoses Alcohol withdrawal F10.939 Alcoholic cirrhosis of liver K70.30 Encephalopathy, hepatic K76.82 Anasarca R60.1 SBP (spontaneous bacterial peritonitis) K65.2 Lactic acidosis E87.20 Decompensated cirrhosis K72.90; K74.60 Acute encephalopathy G93.40 Urinary tract infection N39.0 Wernickes encephalopathy E51.2
[2024-09-21] MEDS: dextrose 10% 1,000 ML 50 ML IV (14:58)
[2024-09-21 16:55] LABS: Glucose Point of Care 88 mg/dL (70-110)
--- NOTE | 2024-09-21 17:31 | PC.NURSE ---
Shift Summary: Mental status unchanged. Patient often has a vacant stare. Occasionally mumbles a word but it is not understandable. Will occasionally follow simple commands such as squeezing fingers. Level of alertness will vary. Attempted bedside swallow evaluation this morning when patient was more alert and again later in the day. Patient failed both times. Sounds as though he may be aspirating. Speech therapy also evaluated and kept him NPO. Started on PPN due to extended NPO status. Started on D10 tdue to persistently low blood sugars. Abdomen may have become more distended today, but small if there was one. total urine output: 775mL No sedatives administered
[2024-09-21 19:31] LABS: C.Diff PCR (Lab) NEGATIVE (Negative)
[2024-09-21 20:07] LABS: Glucose Point of Care 91 mg/dL (70-110)
[2024-09-21 22:29] LABS: Glucose Point of Care 109 mg/dL (70-110)
[2024-09-21] MEDS: morphine 4 mg/mL SDV 1 mL 2 MG IVP (23:11)
[2024-09-21 23:36] LABS: ABG PCO2 37.8 mmHg (35-45); ABG PH Result 7.47 (7.35-7.45); Alveolar-Arterial Oxygen Gradi 4.2 mmHg (5-10); Arterial Blood Gas Hematocrit 40.4 % (42-52); Base Excess ABG 3.5 mmol/L (-2.0-2.0); Blood Gas Operator Identificat JDB; Blood Gas Sample Site Brachial, right; Blood Gas Sample Type Arterial; Carboxyhemoglobin 1.2 %THgb (0.4-20.1); HCO3 ABG 27.3 mmol/L (22-26); HGB O2 Sat 93.1 % (95-100); Ionized Calcium Level - ABG 1.2 mmol/L (1.1-1.4); Methemoglobin 0.8 % (0.4-1.5); Oxygen Device ROOM AIR; Oxygen Saturation ABG 95.1; PO2 ABG 70.5 mmHg (80.0-100.0); PO2 FiO2 Ratio Arterial Blood 335; Potassium Level - ABG 2.9 mmol/L (3.5-5.0); Total Hemoglobin 13.2 g/dL (14-18)
[2024-09-21] MEDS: midazolam 1 mg/mL INJ 2 mL 2 MG IVP (23:55)
[2024-09-22] VITALS (23 sets, daily range): BP systolic 97–168; BP diastolic 71–130; PULSE 65–93; RESP 14–25; TEMP 36.1–36.7; O2SAT 89–98
[2024-09-22] MEDS: midazolam 1 mg/mL INJ 2 mL 2 MG IVP
--- NOTE | 2024-09-22 00:13 | XRR_ITS ---
PROCEDURE INFORMATION: Exam: XR Chest Exam date and time: 09/22/2024 12:17 AM Age: 64 years old Clinical indication: Other vascular access device placement or adjustment; Central line, tunnelled; Check S/P central line placement TECHNIQUE: Imaging protocol: Radiologic exam of the chest. Views: 1 view. COMPARISON: CT angio chest w abd pel w con 09/16/2024 10:49 AM FINDINGS: Tubes, catheters and devices: There is a right-sided venous catheter with tip in the region of the lower right atrium. Lungs: The lungs are hypoinflated, but likely clear. Pleural spaces: Unremarkable. No pleural effusion. No pneumothorax. Heart/Mediastinum: Unremarkable. No cardiomegaly. Bones/joints: Unremarkable. XR/XR chest 1V portable [id number] IMPRESSION: Right-sided venous catheter as detailed above. No postprocedure pneumothorax
[2024-09-22] MEDS: levETIRAcetam 500 MG/100 ML PREMIX 400 MG IV (00:48)
--- NOTE | 2024-09-22 00:55 | ANES.PROC ---
Anesthesia Procedures Procedure/Date: 09/23/24 Central Venous Insert: Central Venous Line: R IJ Time Out Performed: Yes Consent: requested by attending/covering physician, from patient, from other, risks and benefits reviewed and patient agrees to proceed Central Line: New Anesthesia monitors: pulse oximetry, EKG, BP cuff and oxygen Vein cannulated: right internal jugular Ultrasound used: to identify patency to vessel and to visualize needle entry to vein Post procedure: Obtain Chest X-Ray Additional Comments: Copious Chloraprep of R neck, face and chest. Full body drape, US used to identify vessel, access gained under US guidance using seldinger technique. Wire confirmed in I IJ vessel using US inplane and out of plane. Vessel dilated and catheter inserted. Guidewire removed. All lumens aspirated and flushed. Central line sutured in place. CXR order placed. Patient was highly noncooperative requring 4 mg versed in divided doses, 2-point wrist restraints, two sterile operators (including myself) and a nurse assist to hold patient's head in position Delayed note entry
[2024-09-22 01:35] LABS: Glucose Point of Care 110 mg/dL (70-110)
--- NOTE | 2024-09-22 01:45 | XRR_ITS ---
PROCEDURE INFORMATION: Exam: XR Chest Exam date and time: 09/22/2024 1:55 AM Age: 64 years old Clinical indication: Other vascular access device placement or adjustment; Central line, tunnelled; Check S/P retraction of RT central line. ; Additional info: Dyspnea/cough TECHNIQUE: Imaging protocol: Radiologic exam of the chest. Views: 1 view. COMPARISON: CR (CHEST, ) 09/22/2024 12:17 AM FINDINGS: Tubes, catheters and devices: Retraction of venous catheter with tip now in the region of the low SVC. Lungs: Unremarkable. No consolidation. Pleural spaces: Unremarkable. No pleural effusion. No pneumothorax. Heart/Mediastinum: Unremarkable. No cardiomegaly. Bones/joints: Unremarkable. XR/XR chest 1V portable [id number] IMPRESSION: Retraction of right sided venous catheter with tip now in the region of the low SVC.
[2024-09-22] MEDS: fentaNYL 50 mcg/mL INJ 2mL IVP (02:17)
[2024-09-22] MEDS: piperacillin-tazobactam 3.375 GM in sodium chloride 0.9% (plus) 50 ML IV ×3 (02:35→21:06)
[2024-09-22] MEDS: thiamine 100 mg/mL 2mL SDV 200 MG IVP ×3 (02:35→22:24)
--- NOTE | 2024-09-22 02:35 | PM.ACPR ---
Procedure/Consent Procedure Narrative: The R. IJ Central venous catheter was placed by Dr. Burton, Anesthesiologist with Dr. De Jesus and night nurse, Tasha Koroma, actively assisting to help keep the patient still. A time out was performed. My hands were washed immediately prior to the procedure. Surgical caps, masks with protective eyewear, full gown and sterile gloves were woarn throughout the procedure. The patient was placed in Trendelenburg position. The RIGHT chest region was prepped using chlorhexidine scrub and draped in sterile fashion using a full drape and sterile probe cover and sterile gel employed. The medial and lateral heads of the sternocleidomastoid muscle were identified as was the carotid pulse. The Internal Jugular vein was identified using the ultrasound. Anesthesia was achieved over the vein using 4mg of Versed. Using real-time out of plane guidance, the introducer needle was inserted into the Internal Jugular vein under direct ultrasound visualization. Venous blood was withdrawn. The syringe was removed and a guidewire was advanced into the introducer needle. The guidewire was visualized in the Internal Jugular Vein by ultrasound. A small incision was made at the skin surface with a scalpel and the introducer needle was exchanged for a dilator over the guidewire. After appropriate dilation was obtained, the dilator was exchanged over the wire for a 20cm central venous catheter. The wire was removed and the catheter was sutured in place at 20 cm. A shield was placed over the catheter at the insertion site. The patient tolerated the procedure without any hemodynamic compromise. At time of procedure completion, all ports aspirated and flushed properly. Post-procedure chest x-ray showed the R. IJ CVC in the deep Right atrium. The R. IJ CVC was pulled back to 16cm and sutured, and a CXR was repeated. A one time dose of 50mcg of Fentanyl was administered prior to suturing the patient at the 16cm juncture. The CXR showed the R. IJ CVC in the low SVC. Estimated blood loss is 5cc. The initial placement and adjustment of the R. IJ CVC was complicated by the patient's metabolic encephalopathy. His constant movement all three individual as well as restraints, in addition to the anesthetic of 2mg of Midazolam IVP x 2 to attempt to keep the patient still. His tenuous blood pressures were also a concern.
[2024-09-22 02:40] LABS: Basophils % 0.8 %; Eosinophils # 0.2 10^3/uL (0.0-0.8); Eosinophils % 3.3 %; Lymphocytes # 1.2 10^3/uL (0.8-4.8); Lymphocytes % 23.6 %; Mean Corpuscular HGB Conc 34.1 g/dL (30-55); Mean Corpuscular Volume 93.9 fl (82-101); Mean Platelet Volume 10.1 fL (7.4-10.4); Monocytes # 0.8 10^3/uL (0.2-0.9); Monocytes % 15.5 %; Neutrophils # 2.91 10^3/uL (1.8-7.7); Neutrophils % 56.2 %; Nucleated Red Blood Cells % 0 %; Platelet Count 75 10^3/cmm (157-399); Red Blood Count 3.94 10^6/uL (3.85-5.65); Red Cell Distribution Width 16.3 % (12.1-15.1); White Blood Count 5.17 10^3/uL (3.29-11.43)
--- NOTE | 2024-09-22 02:51 | PC.NURSE ---
Dr. De Jesus notified of patient's IV infiltrating and patient requiring continuos D10 infusion for hypoglycemia. Dr. De Jesus stated she will come place a central line. Patient's brother, Howard Jacobs, called for consent as he is the only contact in patient's chart and patient is not alert and oriented to be able to make that decision. Patient's brother, Howard, gave consent for crental line, second nurse, Oanh VALENZUELA verified consent. Dr. Burton, Anesthesiologist, came to bedside along with Dr. De Jesus to place central line because procedure was complicated by patient unable to stay still. Verbal order received from Dr. De Jesus for 2mg Versed IVP twice throughout the procedure, see mar for administration. Verbal order received from Dr. De Jesus for soft limb restraints to bilateral wrists. After chest xray decision was made to retract catheter. Verbal order recieved from Dr. De Jesus for 50mcg Fentanyl IVP during suture placement, see mar for administration. Dr. De Jesus stated to continue order for medical restraints due to patient pulling at lines.
[2024-09-22 02:55] LABS: Alanine Aminotransferase 63 U/L (0-41); Albumin Level 2.6 g/dL (3.5-5.2); Alkaline Phosphatase 258 U/L (40-130); Anion Gap 13.1 (5-19); Aspartate Amino Transferase 120 U/L (0-40); Blood Urea Nitrogen 3 mg/dL (8-23); Calcium 7.8 mg/dL (8.5-10.5); Carbon Dioxide 26 mmol/L (22-29); Chloride 110 mmol/L (98-107); Creatinine Clr Calc Pharmacy 149.6509; Globulin 2.3 g/dL (1.3-4.6); Glomerular Filtration Rate 136.5 mL/min (90-130); Glucose 124 mg/dL (65-115); Magnesium 1.7 mg/dL (1.7-2.3); Osmolality Calculated 300 mOsm/kg (285-295); Potassium 3.1 mmol/L (3.5-5.1); Sodium 146 mmol/L (136-145); Total Bilirubin 2.3 mg/dL (0.15-1.2); Total Protein 4.9 g/dL (6.6-8.7)
[2024-09-22 03:07] LABS: Ammonia 27 umol/L (16-60)
--- NOTE | 2024-09-22 03:14 | PC.NURSE ---
Dr. De Jesus notified of potassium 3.1 on am labs. Orders for KCl and magnesium sulfate placed by physician.
--- NOTE | 2024-09-22 03:14 | PM.MISC ---
Miscellaneous Note Note: Was notified by the night nurse around 11:15pm of 09/21/2024 that the patient had peripheral parenteral nutrition (PPN) and was started on continuous D10 drip in the afternoon of 09/21/2024, and the patient therefore needed a central line. Also attempts to place a peripheral line were unsuccessful and if placed, the peripheral lines were not working. R. IJ central CVC was placed by the Anesthesiologist, Dr. Burton, bobo allan and the nurse actively assisting. See the procedure note for further details.
[2024-09-22] MEDS: lidocaine 1% 5 ML in potassium chloride premix 100 ML 26.25 ML IV ×2 (03:44→08:44)
[2024-09-22] MEDS: heparin 5,000 unit/mL INJ 1 mL 5000 UNIT SUBCUT ×2 (03:44→18:06)
[2024-09-22] MEDS: magnesium sulfate premix 2 GM/50 ML PIGGYBACK IV (03:45)
[2024-09-22 04:50] LABS: Glucose Point of Care 120 mg/dL (70-110)
[2024-09-22 07:39] LABS: Glucose Point of Care 114 mg/dL (70-110)
--- NOTE | 2024-09-22 09:47 | PC.NURSE ---
received pt from icu. altered and lethargic but able to open eyes and squeeze fingers. inspiratory/expiratory wheezing heard. vital signs taken. sitter at bedside.
[2024-09-22] MEDS: ipratropium-albuterol 3 mL Neb INHALATION ×3 (11:18→20:08)
[2024-09-22 11:49] LABS: Glucose Point of Care 103 mg/dL (70-110)
[2024-09-22] MEDS: AA-Dex 8%-10% w/ lytes 1,000 ML with multivitamin inj 10 ML 83 ML IV (12:14)
[2024-09-22] MEDS: dextrose 10% 1,000 ML 40 ML IV (12:22)
[2024-09-22] MEDS: morphine 4 mg/mL SDV 1 mL 2 MG IVP (15:04)
[2024-09-22] MEDS: ondansetron 2 mg/ML SDV 2 mL 4 MG IVP (15:08)
[2024-09-22 17:08] LABS: Glucose Point of Care 127 mg/dL (70-110)
--- NOTE | 2024-09-22 18:31 | P.PN_ITS ---
Subjective 2 Subjective: - Overnight events noted - Currently alert to person, not to plac e, time - He did awaken, but easily falls asleep , received fentanyl and Versed during the night for right central line placement - He does awaken, does localize pain, pu pils equal round reactive to light, no hemodynamic compromise, on room air - Patient did not respond to Keppra Vitals/I&O/Wt Last Vital Signs Temp 98.0 F 09/22/24 15:13 Pulse 81 09/22/24 15:19 Resp 18 09/22/24 15:17 BP 128/89 09/22/24 15:13 Pulse Ox 94 09/22/24 15:17 O2 Del Method Room Air 09/22/24 15:17 O2 Flow Rate 2 09/18/24 12:00 09/22/24 09/22/24 09/22/24 06:59 14:59 22:59 Intake Total 200 / 1694.5079 2210 / 2210 50 / 2260 Output Total 650 / 1425 200 / 200 750 / 950 Balance -450 / 269.5079 2009 -700 / 1310 Weight last 48 hrs Weight 90.492 kg Weight 90.492 kg Weight 90.809 kg Physical Exam 2 Const: COMMON NORMALS: no acute distress ORIENTATION/CONSCIOUSNESS: Yes awake, Yes oriented to person and Yes confused; not oriented to place and not oriented to time Eye: COMMON NORMALS: Equal, round and reactive pupils present and EOMs intact bilaterally PUPIL: Yes Equal, round and reactive pupils present Resp: COMMON NORMALS: normal respiratory effort, No retractions, No use of accessory muscles and clear to auscultation bilaterally AUSCULTATION: clear to auscultation bilaterally Cardio: COMMON NORMALS: regular rate, regular rhythm, S1 normal heart sound present and S2 normal heart sound present RATE: regular rate RHYTHM: r egular rhythm HEART SOUNDS: S1 normal heart sound present and S2 normal heart sound present GI: COMMON NORMALS: Normal to inspection, nondistended, normoactive bowel sounds present and non-tender Extremity: COMMON NORMALS: no pedal edema Neuro: SENSORIUM/ORIENTATION: Yes oriented to person, No oriented to place and No oriented to time Urinary Catheter Management: Barraza: Cath Placed During This Visit: yes Reason for Continuing Indwelling Catheter: Accurate Measurement of Urinary Output in Critically Ill Patients Urinary Catheter Date of Insertion: 09/17/24 Urinary Catheter Time of Insertion: 08:43 Data 09/22/24 02:31 09/22/24 02:31 Micro: Microbiology 09/21/24 18:40 Occult Blood (FIT) - Final Stool - Stool Aspirate A&P Assessment and plan (1) Alcohol withdrawal: (2) Alcoholic cirrhosis of liver: (3) Encephalopathy, hepatic: (4) Anasarca: (5) SBP (spontaneous bacterial peritonitis): (6) Lactic acidosis: (7) Decompensated cirrhosis: (8) Acute encephalopathy: (9) Urinary tract infection: (10) Wernickes encephalopathy: Plan 64M with alcoholic cirrhosis currently getting admitted for decompensated cirrhosis, hepatic encephalopathy and alcohol withdrawal, concern for spontaneous bacterial peritonitis Acute encephalopathy -MRI brain no acute findings - Toxic encephalopathy and metabolic - Component of toxic encephalopathy associated with alcohol withdrawal, out of withdrawal window - Concerns for UTI and SBP playing a role, cultures so far negative, is on appropriate antibiotic therapy, afebrile - Concerns for Warnicke's encephalopathy now significant playing a role due to his persistent encephalopathy -Hyperammonemia, resolving - Monitor mentation closely - Neurochecks - NIH stroke scale - Keep n.p.o., speech therapy eval, advance to dysphagia level 4 diet - On IV thiamine Alcohol withdrawal, currently on day 5 of withdrawal window - Out of withdrawal window Concerns for Wernicke's encephalopathy - high-dose IV thiamine for total 5 days Hepatic encephalopathy -Ammonia level 24 - Continue lactulose - Continue rifaximin Ascites, status post paracentesis 3.5 L removed Concerns for spontaneous bacterial peritonitis -So far paracentesis cultures no growth - Expand antibiotic coverage to Zosyn Urinary tract infection, expand to Zosyn Reported SI in the emergency room, on a 96-hour hold - Currently is globally encephalopathic - Has not voiced any SI ideation to me Bruising over abdominal wall, lower chest - Monitor Thrombocytopenia, monitor Transaminitis, monitor History of liver cirrhosis, history of portal portal hypertensive gastropathy Recently admitted to [facility] for concerns for liver/gallbladder abscess? - Patient had MRI of the abdomen did not show any evidence of liver lesions, fatty islands noted, had a 9 mm hyperenhancing nodule within the right hepatic note, LI-RADS 3 cirrhotic liver with geographic areas of steatosis -Will await records - CT scan showing Small low-attenuation lesions about the gallbladder previously thought to represent small abscesses are similar in appearance. No evidence of progression. Mild gallbladder wall thickening with enhancement. DVT ppx: heparin 5000 s/c full code Will have to reach out to family about patient's persistent altered mentation will consider LP, discussed goals of care, PDMP PDMP Reviewed: Not Reviewed Attestations 2 Medical Necessity Statement*: Patient requires hospitalization for acute encephalopathy Diagnoses Alcohol withdrawal F10.939 Alcoholic cirrhosis of liver K70.30 Encephalopathy, hepatic K76.82 Anasarca R60.1 SBP (spontaneous bacterial peritonitis) K65.2 Lactic acidosis E87.20 Decompensated cirrhosis K72.90; K74.60 Acute encephalopathy G93.40 Urinary tract infection N39.0 Wernickes encephalopathy E51.2
[2024-09-22] MEDS: budesonide 0.5 mg/2 mL Neb INHALATION (20:08)
[2024-09-22 20:18] LABS: Glucose Point of Care 130 mg/dL (70-110)
[2024-09-23] VITALS (15 sets, daily range): BP systolic 97–120; BP diastolic 63–85; PULSE 80–122; RESP 16–24; TEMP 36.1–36.8; O2SAT 92–98
[2024-09-23] MEDS: AA-Dex 8%-10% w/ lytes 1,000 ML with multivitamin inj 10 ML 83 ML IV ×2 (00:34→12:34)
[2024-09-23] MEDS: heparin 5,000 unit/mL INJ 1 mL 5000 UNIT SUBCUT ×2 (03:56→18:52)
[2024-09-23] MEDS: piperacillin-tazobactam 3.375 GM in sodium chloride 0.9% (plus) 50 ML IV (04:00)
[2024-09-23 04:31] LABS: Basophils # 0.1 10^3/uL (0.0-0.1); Eosinophils # 0.2 10^3/uL (0.0-0.8); Eosinophils % 3.4 %; Hematocrit 37.7 % (37-53); Lymphocytes % 20.9 %; Mean Corpuscular HGB Conc 32.4 g/dL (30-55); Mean Corpuscular Hemoglobin 31.6 pg (27-33); Mean Corpuscular Volume 97.7 fl (82-101); Mean Platelet Volume 11.8 fL (7.4-10.4); Monocytes % 19.5 %; Neutrophils % 54.2 %; Nucleated Red Blood Cells % 0 %; Platelet Count 71 10^3/cmm (157-399); Red Blood Count 3.86 10^6/uL (3.85-5.65); Red Cell Distribution Width 16.9 % (12.1-15.1); White Blood Count 4.98 10^3/uL (3.29-11.43)
[2024-09-23 04:48] LABS: Alanine Aminotransferase 53 U/L (0-41); Albumin Level 2.3 g/dL (3.5-5.2); Alkaline Phosphatase 207 U/L (40-130); Anion Gap 9.8 (5-19); Aspartate Amino Transferase 90 U/L (0-40); Blood Urea Nitrogen 10 mg/dL (8-23); Calcium 7.9 mg/dL (8.5-10.5); Carbon Dioxide 26 mmol/L (22-29); Chloride 113 mmol/L (98-107); Creatinine Clr Calc Pharmacy 179.3064; Globulin 2.1 g/dL (1.3-4.6); Glomerular Filtration Rate 168.5 mL/min (90-130); Glucose 114 mg/dL (65-115); Osmolality Calculated 300 mOsm/kg (285-295); Phosphorus 2.8 mg/dL (2.5-4.5); Potassium 3.8 mmol/L (3.5-5.1); Sodium 145 mmol/L (136-145); Total Bilirubin 1.9 mg/dL (0.15-1.2); Total Protein 4.4 g/dL (6.6-8.7)
[2024-09-23] MEDS: thiamine 100 mg/mL 2mL SDV 200 MG IVP (06:29)
[2024-09-23 06:31] LABS: Glucose Point of Care 121 mg/dL (70-110)
[2024-09-23] MEDS: budesonide 0.5 mg/2 mL Neb INHALATION ×2 (08:12→20:25)
[2024-09-23] MEDS: ipratropium-albuterol 3 mL Neb INHALATION ×4 (08:12→23:38)
--- NOTE | 2024-09-23 12:36 | XRR_ITS ---
PROCEDURE INFORMATION: Exam: XR Abdomen Exam date and time: 09/23/2024 1:05 PM Age: 64 years old Clinical indication: Bloating; Additional info: Distention TECHNIQUE: Imaging protocol: Radiologic exam of the abdomen. Views: Frontal supine view of the abdomen. 1 View. COMPARISON: CT angio chest w abd pel w con 09/16/2024 10:49 AM FINDINGS: Gastrointestinal tract: Normal. No bowel dilation. Nonspecific bowel gas pattern. Bones/joints: Unremarkable. XR/XR KUB portable [id number] IMPRESSION: No acute findings.
--- NOTE | 2024-09-23 12:36 | XRR_ITS ---
PROCEDURE INFORMATION: Exam: XR Chest Exam date and time: 09/23/2024 1:03 PM Age: 64 years old Clinical indication: Shortness of breath; Additional info: SOB TECHNIQUE: Imaging protocol: Radiologic exam of the chest. Views: 1 view. COMPARISON: CR (CHEST, ) 09/22/2024 1:55 AM FINDINGS: Tubes, catheters and devices: Right IJ catheter terminates in the right atrium. Lungs: Unremarkable. No consolidation. Pleural spaces: Unremarkable. No pleural effusion. No pneumothorax. Heart/Mediastinum: Unremarkable. No cardiomegaly. Bones/joints: Unremarkable. XR/XR chest 1V portable [id number] IMPRESSION: No acute findings.
--- NOTE | 2024-09-23 12:36 | P.PN_ITS ---
Subjective 2 Subjective: Patient was seen this morning, he is much more alert awake to person, to place, not to time he can follow commands, at times does become confused, but is much more alert and awake Vitals/I&O/Wt Last Vital Signs Temp 96.9 F L 09/23/24 12:00 Pulse 122 H 09/23/24 12:00 Resp 20 H 09/23/24 12:00 BP 117/82 09/23/24 12:00 Pulse Ox 93 09/23/24 12:00 O2 Del Method Nasal Cannula 09/23/24 12:00 O2 Flow Rate 2 09/23/24 12:00 09/22/24 09/23/24 09/23/24 22:59 06:59 14:59 Intake Total 450 / 2660 1304 / 3964 1046 / 1046 Output Total 750 / 950 350 / 1300 Balance -300 / 1710 954 / 2664 1046 / 1046 Weight last 48 hrs Weight 94.438 kg Weight 90.492 kg Weight 90.492 kg Physical Exam 2 Const: COMMON NORMALS: no acute distress ORIENTATION/CONSCIOUSNESS: Yes awake, Yes oriented to person, Yes oriented to place and Yes confused; not oriented to time Resp: COMMON NORMALS: normal respiratory effort, No retractions, No use of accessory muscles and clear to auscultation bilaterally AUSCULTATION: clear to auscultation bilaterally Cardio: COMMON NORMALS: regular rate, regular rhythm, S1 normal heart sound present and S2 normal heart sound present RATE: regular rate RHYTHM: r egular rhythm HEART SOUNDS: S1 normal heart sound present and S2 normal heart sound present GI: COMMON NORMALS: Normal to inspection, nondistended, normoactive bowel sounds present and non-tender Extremity: COMMON NORMALS: no pedal edema Neuro: SENSORIUM/ORIENTATION: Yes oriented to person, Yes oriented to place and No oriented to time OTHER: Moves bilateral upper and lower extremities Urinary Catheter Management: Barraza: Cath Placed During This Visit: yes Reason for Continuing Indwelling Catheter: Accurate Measurement of Urinary Output in Critically Ill Patients Urinary Catheter Date of Insertion: 09/17/24 Urinary Catheter Time of Insertion: 08:43 Data 09/23/24 04:13 09/23/24 04:13 A&P Assessment and plan (1) Alcohol withdrawal: (2) Alcoholic cirrhosis of liver: (3) Encephalopathy, hepatic: (4) Anasarca: (5) SBP (spontaneous bacterial peritonitis): (6) Lactic acidosis: (7) Decompensated cirrhosis: (8) Acute encephalopathy: (9) Urinary tract infection: (10) Wernickes encephalopathy: Plan 64M with alcoholic cirrhosis currently getting admitted for decompensated cirrhosis, hepatic encephalopathy and alcohol withdrawal, concern for spontaneous bacterial peritonitis, persistent encephalopathy concerns for Warnicke's encephalopathy Acute encephalopathy, mentation improving today alert to person, to place, not to time can follow some commands -MRI brain no acute findings - Toxic encephalopathy and metabolic - Component of toxic encephalopathy associated with alcohol withdrawal, out of withdrawal window - Concerns for UTI and SBP playing a role, cultures so far negative, is on appropriate antibiotic therapy, afebrile - Concerns for Warnicke's encephalopathy now significant playing a role due to his persistent encephalopathy -Hyperammonemia, resolving - Monitor mentation closely - Neurochecks - NIH stroke scale - Keep n.p.o., speech therapy eval, advance to dysphagia level 4 diet - On IV thiamine completed 5 days of 200 mg IV every 8 hours, switch to 250 mg IV daily - Currently on PPN at 83 mL an hour - Currently on D10 due to hypoglycemia, will wean off - Placed on dysphagia level 4 diet, extremely thickened, as appetite improves, nutrition improves, will wean off PPN Alcohol withdrawal, - Out of withdrawal window Concerns for Wernicke's encephalopathy - Daily dose IV thiamine Hepatic encephalopathy -Ammonia level 24 - Continue lactulose - Continue rifaximin Ascites, status post paracentesis 3.5 L removed Concerns for spontaneous bacterial peritonitis, fairly likely -So far paracentesis cultures no growth - Zosyn has been discontinued Urinary tract infection, completed Zosyn Reported SI in the emergency room, on a 96-hour hold - Currently is globally encephalopathic - Has not voiced any SI ideation to me Bruising over abdominal wall, lower chest - Monitor Thrombocytopenia, monitor Transaminitis, monitor History of liver cirrhosis, history of portal portal hypertensive gastropathy Recently admitted to [facility] for concerns for liver/gallbladder abscess? - Patient had MRI of the abdomen did not show any evidence of liver lesions, fatty islands noted, had a 9 mm hyperenhancing nodule within the right hepatic note, LI-RADS 3 cirrhotic liver with geographic areas of steatosis -Will await records - CT scan showing Small low-attenuation lesions about the gallbladder previously thought to represent small abscesses are similar in appearance. No evidence of progression. Mild gallbladder wall thickening with enhancement. Hypoglycemia events, D10 drip, slowly weaning D10 drip off DVT ppx: heparin 5000 s/c full code Monitor mentation,, PT OT PDMP PDMP Reviewed: Not Reviewed Attestations 2 Medical Necessity Statement*: Patient requires hospitalization for Warnicke encephalopathy, poor appetite on PPN, D10 drip due to hypoglycemia Diagnoses Alcohol withdrawal F10.939 Alcoholic cirrhosis of liver K70.30 Encephalopathy, hepatic K76.82 Anasarca R60.1 SBP (spontaneous bacterial peritonitis) K65.2 Lactic acidosis E87.20 Decompensated cirrhosis K72.90; K74.60 Acute encephalopathy G93.40 Urinary tract infection N39.0 Wernickes encephalopathy E51.2
[2024-09-23 13:03] LABS: Glucose Point of Care 102 mg/dL (70-110)
[2024-09-23] MEDS: thiamine 100 mg/mL 2mL SDV 250 MG IVP (14:00)
[2024-09-23 17:32] LABS: Glucose Point of Care 106 mg/dL (70-110)
[2024-09-23] MEDS: quetiapine 100 mg Tablet PO (21:38)
[2024-09-23 22:15] LABS: C.Diff PCR (Lab) NEGATIVE (Negative)
[2024-09-23 22:17] LABS: Glucose Point of Care 120 mg/dL (70-110)
[2024-09-23] MEDS: morphine 4 mg/mL SDV 1 mL 2 MG IVP (23:41)
[2024-09-24] VITALS (13 sets, daily range): BP systolic 91–125; BP diastolic 72–97; PULSE 87–113; RESP 14–22; TEMP 36.6–37.1; O2SAT 92–100
[2024-09-24] MEDS: AA-Dex 8%-10% w/ lytes 1,000 ML with multivitamin inj 10 ML 83 ML IV ×2 (00:40→12:28)
[2024-09-24 04:21] LABS: Basophils % 0.8 %; Eosinophils # 0.1 10^3/uL (0.0-0.8); Eosinophils % 1.9 %; Hematocrit 35.9 % (37-53); Lymphocytes # 1.3 10^3/uL (0.8-4.8); Lymphocytes % 27.1 %; Mean Corpuscular HGB Conc 32.6 g/dL (30-55); Mean Corpuscular Hemoglobin 31.7 pg (27-33); Mean Corpuscular Volume 97.3 fl (82-101); Mean Platelet Volume 12.3 fL (7.4-10.4); Monocytes # 0.9 10^3/uL (0.2-0.9); Monocytes % 19.7 %; Neutrophils # 2.33 10^3/uL (1.8-7.7); Neutrophils % 49.4 %; Nucleated Red Blood Cells % 0 %; Platelet Count 62 10^3/cmm (157-399); Red Blood Count 3.69 10^6/uL (3.85-5.65); Red Cell Distribution Width 17.2 % (12.1-15.1); White Blood Count 4.72 10^3/uL (3.29-11.43)
[2024-09-24 04:39] LABS: Alanine Aminotransferase 40 U/L (0-41); Albumin Level 2.2 g/dL (3.5-5.2); Alkaline Phosphatase 180 U/L (40-130); Anion Gap 8.9 (5-19); Aspartate Amino Transferase 72 U/L (0-40); Blood Urea Nitrogen 20 mg/dL (8-23); Calcium 8.3 mg/dL (8.5-10.5); Carbon Dioxide 26 mmol/L (22-29); Chloride 110 mmol/L (98-107); Creatinine Clr Calc Pharmacy 152.2719; Globulin 2.1 g/dL (1.3-4.6); Glomerular Filtration Rate 136.5 mL/min (90-130); Glucose 108 mg/dL (65-115); Osmolality Calculated 295 mOsm/kg (285-295); Potassium 3.9 mmol/L (3.5-5.1); Sodium 141 mmol/L (136-145); Total Bilirubin 1.6 mg/dL (0.15-1.2); Total Protein 4.3 g/dL (6.6-8.7)
[2024-09-24 06:08] LABS: Glucose Point of Care 111 mg/dL (70-110)
[2024-09-24] MEDS: ipratropium-albuterol 3 mL Neb INHALATION ×5 (07:40→23:03)
[2024-09-24] MEDS: budesonide 0.5 mg/2 mL Neb INHALATION ×2 (07:40→19:23)
[2024-09-24] MEDS: rifaximin 200 mg Tablet 600 MG PO ×2 (09:22→17:31)
[2024-09-24] MEDS: escitalopram 10 mg Tablet 20 MG PO (09:23)
[2024-09-24] MEDS: multivitamin therapeutic Tablet 1 TAB PO (09:24)
[2024-09-24] MEDS: thiamine 100 mg/mL 2mL SDV 250 MG IVP (09:24)
[2024-09-24] MEDS: folic acid 1 mg Tablet PO (09:24)
[2024-09-24 12:09] LABS: Glucose Point of Care 89 mg/dL (70-110)
--- NOTE | 2024-09-24 13:19 | PM.PN ---
Subjective Subjective: Patient was seen this morning he is much more alert awake he is alert to person, to place, not to time he follows commands, he tells me where he lives, he tells me his social situation, tells me that he can potentially try to live with his stepmother on discharge, who is a senior mainframe programmer analyst, he does report that he was helping with his mom after surgery, that he was living in her house at 1 point then he moved to his brother's house Vitals/I&O/Wt Last Vital Signs Temp 98.4 F 09/24/24 12:00 Pulse 99 09/24/24 12:00 Resp 18 09/24/24 12:00 BP 121/77 09/24/24 12:00 Pulse Ox 99 09/24/24 12:00 O2 Del Method Nasal Cannula 09/24/24 12:00 O2 Flow Rate 2 09/24/24 12:00 09/23/24 09/24/24 09/24/24 22:59 06:59 14:59 Intake Total 310 / 1356 1010 / 2366 1099.4 / 1099.4 Output Total 400 / 400 900 / 1300 Balance -90 / 956 110 / 1066 1099.4 / 1099.4 Weight last 48 hrs Weight 89.131 kg Weight 94.438 kg Physical Exam Const: COMMON NORMALS: no acute distress ORIENTATION/CONSCIOUSNESS: Yes awake, Yes oriented to person and Yes oriented to place Resp: COMMON NORMALS: normal respiratory effort, No retractions, No use of accessory muscles and clear to auscultation bilaterally AUSCULTATION: clear to auscultation bilaterally Cardio: COMMON NORMALS: regular rate, regular rhythm, S1 normal heart sound present and S2 normal heart sound present RATE: regular rate RHYTHM: regular rhythm HEART SOUNDS: S1 normal heart sound present and S2 normal heart sound present GI: COMMON NORMALS: Normal to inspection, nondistended, normoactive bowel sounds present and non-tender Extremity: COMMON NORMALS: capillary refill normal and no pedal edema Neuro: SENSORIUM/ORIENTATION: Yes oriented to person and Yes oriented to place Psych: COMMON NORMALS: mental status grossly normal Urinary Catheter Management: Barraza: Cath Placed During This Visit: yes Reason for Continuing Indwelling Catheter: Accurate Measurement of Urinary Output in Critically Ill Patients Urinary Catheter Date of Insertion: 09/17/24 Urinary Catheter Time of Insertion: 08:43 Data 05/27/25 04:09 09/24/24 04:09 A&P Assessment and plan (1) Alcohol withdrawal: (2) Alcoholic cirrhosis of liver: (3) Encephalopathy, hepatic: (4) Anasarca: (5) SBP (spontaneous bacterial peritonitis): (6) Lactic acidosis: (7) Decompensated cirrhosis: (8) Acute encephalopathy: (9) Urinary tract infection: (10) Wernickes encephalopathy: Plan 64M with alcoholic cirrhosis currently getting admitted for decompensated cirrhosis, hepatic encephalopathy and alcohol withdrawal, concern for spontaneous bacterial peritonitis, persistent encephalopathy concerns for Warnicke's encephalopathy Acute encephalopathy, mentation improving today alert to person, to place, not to time can follow some commands -MRI brain no acute findings - Toxic encephalopathy and metabolic - Component of toxic encephalopathy associated with alcohol withdrawal, out of withdrawal window - Concerns for UTI and SBP playing a role, cultures so far negative, is on appropriate antibiotic therapy, afebrile - Concerns for Warnicke's encephalopathy now significant playing a role due to his persistent encephalopathy -Hyperammonemia, resolving - Monitor mentation closely - Neurochecks - NIH stroke scale - advance to dysphagia level 4 diet moderately thickened - On IV thiamine completed 5 days of 200 mg IV every 8 hours, switch to 250 mg IV daily - Currently on PPN at 83 mL an hour - Currently on D10 due to hypoglycemia, currently off - Placed on dysphagia level 4 diet, extremely thickened, as appetite improves, nutrition improves, will wean off PPN Alcohol withdrawal, - Out of withdrawal window Concerns for Wernicke's encephalopathy - Daily dose IV thiamine Hepatic encephalopathy -Ammonia level 24 - Continue lactulose - Continue rifaximin Ascites, status post paracentesis 3.5 L removed Concerns for spontaneous bacterial peritonitis, fairly likely -So far paracentesis cultures no growth - Zosyn has been discontinued Urinary tract infection, completed Zosyn Reported SI in the emergency room, on a 96-hour hold - Currently is globally encephalopathic - Has not voiced any SI ideation to me Bruising over abdominal wall, lower chest - Monitor Thrombocytopenia, monitor Transaminitis, monitor History of liver cirrhosis, history of portal portal hypertensive gastropathy Recently admitted to [facility] for concerns for liver/gallbladder abscess? - Patient had MRI of the abdomen did not show any evidence of liver lesions, fatty islands noted, had a 9 mm hyperenhancing nodule within the right hepatic note, LI-RADS 3 cirrhotic liver with geographic areas of steatosis -Will await records - CT scan showing Small low-attenuation lesions about the gallbladder previously thought to represent small abscesses are similar in appearance. No evidence of progression. Mild gallbladder wall thickening with enhancement. Hypoglycemia events, D10 drip, slowly weaning D10 drip off Physical deconditioning, from alcoholism - PT OT DVT ppx: heparin 5000 s/c full code Monitor mentation, PT OT, currently receiving PPN PDMP PDMP Reviewed: Not Reviewed Attestations Medical Necessity Statement*: Patient requires hospitalization for acute encephalopathy, deconditioning Diagnoses Alcohol withdrawal F10.939 Alcoholic cirrhosis of liver K70.30 Encephalopathy, hepatic K76.82 Anasarca R60.1 SBP (spontaneous bacterial peritonitis) K65.2 Lactic acidosis E87.20 Decompensated cirrhosis K72.90; K74.60 Acute encephalopathy G93.40 Urinary tract infection N39.0 Wernickes encephalopathy E51.2
[2024-09-24 14:09] LABS: Lactate Dehydrogenase 271 U/L (135-225)
[2024-09-24 14:37] LABS: Glucose Point of Care 110 mg/dL (70-110)
[2024-09-24 17:32] LABS: Glucose Point of Care 118 mg/dL (70-110)
[2024-09-24] MEDS: quetiapine 100 mg Tablet PO (20:31)
[2024-09-24 20:51] LABS: Glucose Point of Care 109 mg/dL (70-110)
[2024-09-25] VITALS (15 sets, daily range): BP systolic 92–128; BP diastolic 56–89; PULSE 88–127; RESP 16–19; TEMP 36.4–37; O2SAT 93–98
[2024-09-25] MEDS: AA-Dex 8%-10% w/ lytes 1,000 ML with multivitamin inj 10 ML 83 ML IV (00:29)
[2024-09-25] MEDS: ipratropium-albuterol 3 mL Neb INHALATION ×5 (04:26→23:30)
[2024-09-25 04:48] LABS: Basophils % 0.7 %; Eosinophils # 0.1 10^3/uL (0.0-0.8); Eosinophils % 1.7 %; Hematocrit 34.1 % (37-53); Lymphocytes # 1.1 10^3/uL (0.8-4.8); Lymphocytes % 24.9 %; Mean Corpuscular HGB Conc 32.6 g/dL (30-55); Mean Corpuscular Hemoglobin 31.6 pg (27-33); Mean Corpuscular Volume 97.2 fl (82-101); Mean Platelet Volume 12.8 fL (7.4-10.4); Monocytes # 0.9 10^3/uL (0.2-0.9); Monocytes % 19.2 %; Neutrophils % 52.4 %; Nucleated Red Blood Cells % 0 %; Platelet Count 70 10^3/cmm (157-399); Red Blood Count 3.51 10^6/uL (3.85-5.65); Red Cell Distribution Width 17.3 % (12.1-15.1); White Blood Count 4.58 10^3/uL (3.29-11.43)
[2024-09-25 05:04] LABS: Alanine Aminotransferase 35 U/L (0-41); Albumin Level 2.1 g/dL (3.5-5.2); Alkaline Phosphatase 177 U/L (40-130); Anion Gap 10.8 (5-19); Aspartate Amino Transferase 71 U/L (0-40); Blood Urea Nitrogen 19 mg/dL (8-23); Calcium 8.3 mg/dL (8.5-10.5); Carbon Dioxide 23 mmol/L (22-29); Chloride 107 mmol/L (98-107); Creatinine Clr Calc Pharmacy 222.6586; Globulin 2.4 g/dL (1.3-4.6); Glucose 104 mg/dL (65-115); Osmolality Calculated 287 mOsm/kg (285-295); Potassium 3.8 mmol/L (3.5-5.1); Sodium 137 mmol/L (136-145); Total Bilirubin 1.5 mg/dL (0.15-1.2); Total Protein 4.5 g/dL (6.6-8.7)
[2024-09-25 06:45] LABS: Glucose Point of Care 95 mg/dL (70-110)
[2024-09-25] MEDS: budesonide 0.5 mg/2 mL Neb INHALATION ×2 (08:46→20:23)
[2024-09-25] MEDS: rifaximin 200 mg Tablet 600 MG PO ×2 (10:13→17:42)
[2024-09-25] MEDS: escitalopram 10 mg Tablet 20 MG PO (10:13)
[2024-09-25] MEDS: thiamine 100 mg/mL 2mL SDV 250 MG IVP (10:14)
[2024-09-25] MEDS: multivitamin therapeutic Tablet 1 TAB PO (10:14)
[2024-09-25] MEDS: folic acid 1 mg Tablet PO (10:14)
[2024-09-25 11:43] LABS: Glucose Point of Care 117 mg/dL (70-110)
[2024-09-25] MEDS: AA-Dex 8%-10% w/ lytes 1,000 ML with multivitamin inj 10 ML 63 ML IV (13:20)
--- NOTE | 2024-09-25 15:10 | PC.NURSE ---
transfer to room 266 via w/c at this time.report phoned to isidoro jones
[2024-09-25 15:59] LABS: Glucose Point of Care 113 mg/dL (70-110)
--- NOTE | 2024-09-25 16:54 | P.PN_ITS ---
Subjective 2 Subjective: Patient was seen this morning, he is much more alert awake, alert to person, to place, not to time, he can follow commands, no suicidal ideation, no homicidal ideation, denies seeing or hearing things are not there, no abdominal pain, he does not know where he is chemical from the hospital, continues to complain of generalized weakness, Vitals/I&O/Wt Last Vital Signs Temp 98.3 F 09/25/24 15:38 Pulse 104 H 09/25/24 15:38 Resp 18 09/25/24 15:38 BP 120/81 09/25/24 15:38 Pulse Ox 95 09/25/24 15:38 O2 Del Method Room Air 09/25/24 16:15 O2 Flow Rate 2 09/24/24 12:00 09/25/24 09/25/24 09/25/24 06:59 14:59 22:59 Intake Total 1010 / 3069.4 1364.217 / 1364.217 Output Total 1350 / 1950 850 / 850 Balance -340 / 1119.4 514.217 / 514.217 Weight last 48 hrs Weight 90.174 kg Weight 89.131 kg Physical Exam 2 Const: COMMON NORMALS: no acute distress ORIENTATION/CONSCIOUSNESS: Yes awake, Yes oriented to person and Yes oriented to place; not oriented to time Resp: COMMON NORMALS: normal respiratory effort, No retractions, No use of accessory muscles and clear to auscultation bilaterally AUSCULTATION: clear to auscultation bilaterally Cardio: COMMON NORMALS: regular rate, regular rhythm, S1 normal heart sound present and S2 normal heart sound present RATE: regular rate RHYTHM: r egular rhythm HEART SOUNDS: S1 normal heart sound present and S2 normal heart sound present GI: COMMON NORMALS: Normal to inspection, nondistended, normoactive bowel sounds present and non-tender Extremity: COMMON NORMALS: no pedal edema Neuro: SENSORIUM/ORIENTATION: Yes oriented to person, Yes oriented to place and No oriented to time Urinary Catheter Management: Barraza: Cath Placed During This Visit: yes Reason for Continuing Indwelling Catheter: Accurate Measurement of Urinary Output in Critically Ill Patients Urinary Catheter Date of Insertion: 09/17/24 Urinary Catheter Time of Insertion: 08:43 Data 09/25/24 03:49 09/25/24 03:49 A&P Assessment and plan (1) Alcohol withdrawal: (2) Alcoholic cirrhosis of liver: (3) Encephalopathy, hepatic: (4) Anasarca: (5) SBP (spontaneous bacterial peritonitis): (6) Lactic acidosis: (7) Decompensated cirrhosis: (8) Acute encephalopathy: (9) Urinary tract infection: (10) Wernickes encephalopathy: Plan 64M with alcoholic cirrhosis currently getting admitted for decompensated cirrhosis, hepatic encephalopathy and alcohol withdrawal, concern for spontaneous bacterial peritonitis, persistent encephalopathy concerns for Warnicke's encephalopathy Acute encephalopathy, mentation improving today alert to person, to place, not to time can follow some commands -MRI brain no acute findings - Toxic encephalopathy and metabolic - Component of toxic encephalopathy associated with alcohol withdrawal, out of withdrawal window - Concerns for UTI and SBP playing a role, cultures so far negative, is on appropriate antibiotic therapy, afebrile - Concerns for Warnicke's encephalopathy now significant playing a role due to his persistent encephalopathy -Hyperammonemia, resolving - Monitor mentation closely - Neurochecks - NIH stroke scale - advance to dysphagia level 4 diet moderately thickened, advance diet as tolerated - On IV thiamine completed 5 days of 200 mg IV every 8 hours, switch to 250 mg IV daily for 5 days - Currently on PPN at 83 mL an hour, will wean 20 cc every 8 hours to discontinue - Currently on D10 due to hypoglycemia, currently off - Placed on dysphagia level 4 diet, extremely thickened, as appetite improves, nutrition improves, will wean off PPN Alcohol withdrawal, - Out of withdrawal window Concerns for Wernicke's encephalopathy - Daily dose IV thiamine 250 mg daily for 5 days Hepatic encephalopathy -Ammonia level 24 - Continue lactulose - Continue rifaximin Ascites, status post paracentesis 3.5 L removed Concerns for spontaneous bacterial peritonitis, fairly likely -So far paracentesis cultures no growth - Zosyn has been discontinued Urinary tract infection, completed Zosyn Reported SI in the emergency room, on a 96-hour hold - Currently denies any suicidal ideation, no homicidal ideation - Will consult Dr. Wakefield Bruising over abdominal wall, lower chest - Monitor Thrombocytopenia, monitor Transaminitis, monitor History of liver cirrhosis, history of portal portal hypertensive gastropathy Recently admitted to [facility] for concerns for liver/gallbladder abscess? - Patient had MRI of the abdomen did not show any evidence of liver lesions, fatty islands noted, had a 9 mm hyperenhancing nodule within the right hepatic note, LI-RADS 3 cirrhotic liver with geographic areas of steatosis -Will await records - CT scan showing Small low-attenuation lesions about the gallbladder previously thought to represent small abscesses are similar in appearance. No evidence of progression. Mild gallbladder wall thickening with enhancement. Hypoglycemia events, D10 drip, slowly weaning D10 drip off Physical deconditioning, from alcoholism - PT OT DVT ppx: heparin 5000 s/c currently on hold due to thrombocytopenia full code Monitor mentation, PT OT, currently receiving PPN PDMP PDMP Reviewed: Not Reviewed Attestations 2 Medical Necessity Statement*: Patient requires hospitalization for Warnicke's encephalopathy, deconditioning, Diagnoses Alcohol withdrawal F10.939 Alcoholic cirrhosis of liver K70.30 Encephalopathy, hepatic K76.82 Anasarca R60.1 SBP (spontaneous bacterial peritonitis) K65.2 Lactic acidosis E87.20 Decompensated cirrhosis K72.90; K74.60 Acute encephalopathy G93.40 Urinary tract infection N39.0 Wernickes encephalopathy E51.2
--- NOTE | 2024-09-25 17:45 | PC.NURSE ---
Patient transferred here from [facility]. No belongings with patient at all.
--- NOTE | 2024-09-25 17:51 | PC.NURSE ---
TPN turned down to 43 from 63 at 1750.
[2024-09-25 20:28] LABS: Glucose Point of Care 99 mg/dL (70-110)
[2024-09-25] MEDS: quetiapine 100 mg Tablet PO (20:50)
[2024-09-26] VITALS (12 sets, daily range): BP systolic 97–141; BP diastolic 62–91; PULSE 83–99; RESP 16–94; TEMP 36.6–37.1; O2SAT 92–95
[2024-09-26 05:09] LABS: Basophils # 0.1 10^3/uL (0.0-0.1); Basophils % 1.2 %; Eosinophils # 0.1 10^3/uL (0.0-0.8); Eosinophils % 1.6 %; Hematocrit 33.7 % (37-53); Lymphocytes # 1.2 10^3/uL (0.8-4.8); Lymphocytes % 24.1 %; Mean Corpuscular HGB Conc 32.9 g/dL (30-55); Mean Corpuscular Volume 97.1 fl (82-101); Monocytes # 0.8 10^3/uL (0.2-0.9); Monocytes % 16.9 %; Neutrophils # 2.73 10^3/uL (1.8-7.7); Neutrophils % 55.8 %; Nucleated Red Blood Cells % 0 %; Platelet Count 85 10^3/cmm (157-399); Red Blood Count 3.47 10^6/uL (3.85-5.65); Red Cell Distribution Width 17.5 % (12.1-15.1)
[2024-09-26 05:32] LABS: Alanine Aminotransferase 39 U/L (0-41); Albumin Level 2.3 g/dL (3.5-5.2); Alkaline Phosphatase 192 U/L (40-130); Anion Gap 10.9 (5-19); Aspartate Amino Transferase 85 U/L (0-40); Blood Urea Nitrogen 14 mg/dL (8-23); Calcium 8.3 mg/dL (8.5-10.5); Carbon Dioxide 23 mmol/L (22-29); Chloride 110 mmol/L (98-107); Creatinine Clr Calc Pharmacy 185.8315; Globulin 2.4 g/dL (1.3-4.6); Glomerular Filtration Rate 168.5 mL/min (90-130); Glucose 96 mg/dL (65-115); Osmolality Calculated 290 mOsm/kg (285-295); Potassium 3.9 mmol/L (3.5-5.1); Sodium 140 mmol/L (136-145); Total Bilirubin 1.4 mg/dL (0.15-1.2); Total Protein 4.7 g/dL (6.6-8.7)
[2024-09-26 06:19] LABS: Glucose Point of Care 88 mg/dL (70-110)
[2024-09-26] MEDS: budesonide 0.5 mg/2 mL Neb INHALATION ×2 (08:07→19:08)
[2024-09-26] MEDS: ipratropium-albuterol 3 mL Neb INHALATION ×4 (08:07→19:08)
[2024-09-26] MEDS: multivitamin therapeutic Tablet 1 TAB PO (09:19)
[2024-09-26] MEDS: rifaximin 200 mg Tablet 600 MG PO ×2 (09:19→18:24)
[2024-09-26] MEDS: folic acid 1 mg Tablet PO (09:19)
[2024-09-26] MEDS: escitalopram 10 mg Tablet 20 MG PO (09:19)
[2024-09-26] MEDS: thiamine 100 mg/mL 2mL SDV 250 MG IVP (09:20)
[2024-09-26 12:16] LABS: Glucose Point of Care 92 mg/dL (70-110)
--- NOTE | 2024-09-26 15:02 | P.PN_ITS ---
Subjective 2 Subjective: Patient was seen this morning, currently alert oriented x 3, following all commands, he tells me that his appetite is lackluster, but his strength is improving Vitals/I&O/Wt Last Vital Signs Temp 98.6 F 09/26/24 12:00 Pulse 89 09/26/24 12:00 Resp 17 09/26/24 12:00 BP 97/62 09/26/24 12:00 Pulse Ox 93 09/26/24 12:00 O2 Del Method Room Air 09/26/24 12:00 O2 Flow Rate 2 09/24/24 12:00 09/26/24 09/26/24 09/26/24 06:59 14:59 22:59 Intake Total 544.583 / 2985.800 480 / 480 Output Total 500 / 2000 200 / 200 Balance 44.583 / 985.800 280 / 280 Weight last 48 hrs Weight 98.021 kg Weight 90.174 kg Physical Exam 2 Const: COMMON NORMALS: no acute distress and patient oriented x3 Resp: COMMON NORMALS: normal respiratory effort, No retractions, No use of accessory muscles and clear to auscultation bilaterally AUSCULTATION: clear to auscultation bilaterally Cardio: COMMON NORMALS: regular rate, regular rhythm, S1 normal heart sound present and S2 normal heart sound present RATE: regular rate RHYTHM: r egular rhythm HEART SOUNDS: S1 normal heart sound present and S2 normal heart sound present GI: COMMON NORMALS: Normal to inspection, nondistended, normoactive bowel sounds present and non-tender Extremity: COMMON NORMALS: no pedal edema Neuro: COMMON NORMALS: patient oriented x3 Psych: COMMON NORMALS: mental status grossly normal Urinary Catheter Management: Barraza: Cath Placed During This Visit: yes Reason for Continuing Indwelling Catheter: Accurate Measurement of Urinary Output in Critically Ill Patients Urinary Catheter Date of Insertion: 09/17/24 Urinary Catheter Time of Insertion: 08:43 Data 09/26/24 04:19 09/26/24 04:19 A&P Assessment and plan (1) Alcohol withdrawal: (2) Alcoholic cirrhosis of liver: (3) Encephalopathy, hepatic: (4) Anasarca: (5) SBP (spontaneous bacterial peritonitis): (6) Lactic acidosis: (7) Decompensated cirrhosis: (8) Acute encephalopathy: (9) Urinary tract infection: (10) Wernickes encephalopathy: Plan 64M with alcoholic cirrhosis currently getting admitted for decompensated cirrhosis, hepatic encephalopathy and alcohol withdrawal, concern for spontaneous bacterial peritonitis, persistent encephalopathy concerns for Warnicke's encephalopathy Acute encephalopathy, mentation improving today alert to person, to place, not to time can follow some commands -MRI brain no acute findings - Toxic encephalopathy and metabolic - Component of toxic encephalopathy associated with alcohol withdrawal, out of withdrawal window - Concerns for UTI and SBP playing a role, cultures so far negative, is on appropriate antibiotic therapy, afebrile - Concerns for Warnicke's encephalopathy now significant playing a role due to his persistent encephalopathy -Hyperammonemia, resolving - Monitor mentation closely - Neurochecks - NIH stroke scale - advance to dysphagia level 4 diet moderately thickened, advance diet as tolerated - On IV thiamine completed 5 days of 200 mg IV every 8 hours, switch to 250 mg IV daily for 5 days - Currently on PPN at 83 mL an hour, will wean 20 cc every 8 hours to discontinue - Currently on D10 due to hypoglycemia, currently off - Placed on dysphagia level 4 diet, extremely thickened, as appetite improves, nutrition improves, will wean off PPN Alcohol withdrawal, - Out of withdrawal window Concerns for Wernicke's encephalopathy - Daily dose IV thiamine 250 mg daily for 5 days Hepatic encephalopathy -Ammonia level 24 - Continue lactulose - Continue rifaximin Ascites, status post paracentesis 3.5 L removed Concerns for spontaneous bacterial peritonitis, fairly likely -So far paracentesis cultures no growth - Zosyn has been discontinued Urinary tract infection, completed Zosyn Reported SI in the emergency room, on a 96-hour hold - Currently denies any suicidal ideation, no homicidal ideation - Will consult Dr. Wakefield Bruising over abdominal wall, lower chest - Monitor Thrombocytopenia, monitor Transaminitis, monitor History of liver cirrhosis, history of portal portal hypertensive gastropathy Recently admitted to [facility] for concerns for liver/gallbladder abscess? - Patient had MRI of the abdomen did not show any evidence of liver lesions, fatty islands noted, had a 9 mm hyperenhancing nodule within the right hepatic note, LI-RADS 3 cirrhotic liver with geographic areas of steatosis -Will await records - CT scan showing Small low-attenuation lesions about the gallbladder previously thought to represent small abscesses are similar in appearance. No evidence of progression. Mild gallbladder wall thickening with enhancement. Hypoglycemia events, D10 drip, slowly weaning D10 drip off Physical deconditioning, from alcoholism - PT OT DVT ppx: heparin 5000 s/c currently on hold due to thrombocytopenia full code Monitor mentation, PT OT, wean off PPN plan on discharging in the next 24 hours PDMP PDMP Reviewed: Not Reviewed Attestations 2 Medical Necessity Statement*: Patient requires hospitalization for Warnicke encephalopathy, deconditioning Diagnoses Alcohol withdrawal F10.939 Alcoholic cirrhosis of liver K70.30 Encephalopathy, hepatic K76.82 Anasarca R60.1 SBP (spontaneous bacterial peritonitis) K65.2 Lactic acidosis E87.20 Decompensated cirrhosis K72.90; K74.60 Acute encephalopathy G93.40 Urinary tract infection N39.0 Wernickes encephalopathy E51.2
[2024-09-26 16:31] LABS: Glucose Point of Care 90 mg/dL (70-110)
[2024-09-26 20:59] LABS: Glucose Point of Care 93 mg/dL (70-110)
[2024-09-26] MEDS: quetiapine 100 mg Tablet PO (21:19)
[2024-09-27] VITALS (9 sets, daily range): BP systolic 112–127; BP diastolic 70–85; PULSE 86–101; RESP 15–18; TEMP 36.7–37; O2SAT 62–95
[2024-09-27] MEDS: ipratropium-albuterol 3 mL Neb INHALATION ×4 (00:07→11:19)
[2024-09-27 01:00] LABS: Heparin Induced Platelet AB NEGATIVE (NEGATIVE); Patient O.D 0.186
[2024-09-27 06:40] LABS: Glucose Point of Care 94 mg/dL (70-110)
[2024-09-27] MEDS: budesonide 0.5 mg/2 mL Neb INHALATION (08:16)
[2024-09-27] MEDS: rifaximin 200 mg Tablet 600 MG PO (08:43)
[2024-09-27] MEDS: escitalopram 10 mg Tablet 20 MG PO (08:44)
[2024-09-27] MEDS: multivitamin therapeutic Tablet 1 TAB PO (08:44)
[2024-09-27] MEDS: folic acid 1 mg Tablet PO (08:44)
[2024-09-27] MEDS: thiamine 100 mg/mL 2mL SDV 250 MG IVP (08:47)
[2024-09-27 10:45] LABS: Glucose Point of Care 86 mg/dL (70-110)
--- NOTE | 2024-09-27 14:18 | PC.NURSE ---
patient discharged around 215 pm from this floor to home. patient has all belongings with him upon discharge. has all discharge paper work and states understanding on discharge paperwork. patient had medication delivered to bed side by pharmacy.
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
[2024-10-03 21:14] LABS: UFH High Dose, 100 IU/ML 14 % release; UFH Low Dose, 0.1 IU/ML 10 % release; UFH Low Dose, 0.5 IU/ML 16 % release; UFH SRA Result NEGATIVE (NEGATIVE)
== END 2024-09-27 14:22 | disposition home or self-care (01) | DRG 896 ==
LOC: ER 11:15 → ICU 16:55 → CSU 09-22 09:41 → MEDSURG 09-25 15:23
PROVIDERS: Internal Medicine; Admitting Provider Student in an Organized Health Care Education/Training Program; Emergency Provider Family Medicine; Visit Provider Family Medicine
DX: F10.239 Alcohol dependence with withdrawal, unspecified (principal); G92.9 Unspecified toxic encephalopathy; K65.2 Spontaneous bacterial peritonitis; K76.6 Portal hypertension; E87.20 Acidosis, unspecified; N39.0 Urinary tract infection, site not specified; E51.2 Wernicke's encephalopathy; R45.851 Suicidal ideations; Z59.01 Sheltered homelessness; E72.4 Disorders of ornithine metabolism; K70.31 Alcoholic cirrhosis of liver with ascites; K70.0 Alcoholic fatty liver; Y90.6 Blood alcohol level of 120-199 mg/100 ml; K76.82 Hepatic encephalopathy; D69.6 Thrombocytopenia, unspecified; Z60.8 Other problems related to social environment; Z59.71 Insufficient health insurance coverage; W01.0XXA Fall on same level from slipping, tripping and stumbling without subsequent striking against object, initial encounter; R00.0 Tachycardia, unspecified; S30.1XXA Contusion of abdominal wall, initial encounter; R13.10 Dysphagia, unspecified
CPT/HCPCS: 36415; 36416; 36592; 36600; 49083; 51702; 70450; 70551; 71045; 71275; 72125; 74018; 74177; 76705; 80051; 80053; 80307; 80503; 81001; 82140; 82274; 82330; 82550; 82805; 82962; 83010; 83605; 83615; 83690; 83735; 84100; 85025; 85610; 85730; 87040; 87070; 87075; 87086; 87205; 87493; 89050; 92507; 92523; 92526; 92610; 93005; 94640; 96365; 96366; 96367; 96372; 96374; 96375; 96376; 97110; 97116; 97162; 97530; 99285; A4570; C1751; J0696; J1630; J1644; J1953; J2060; J2250; J2270; J2405; J2470; J2543; J3010; J3411; J3475; J3480; J7030; J7626; J7799; J9999